=== PATIENT | male | born 1955 | race Caucasian/White ===

== ENCOUNTER 2016-09-28 06:10 | Inpatient (IN) | payer OTHER ==
--- NOTE | 2016-09-28 07:04 | EDPHY ---
H & P Stated Complaint: pt c/o lower back, abd pain and weakness Time Seen by Provider: 09/28/16 07:03 Source: Patient, Family - Personal History Current Tetanus Diphtheria and Acellular Pertussis (TDAP): Yes Tetanus Vaccine Date: WITHIN 10 YRS - Medical/Surgical History Hx Asthma: No Hx Chronic Respiratory Disease: No Hx Diabetes: No Hx Cardiac Disease: No Hx Renal Disease: No Hx Cirrhosis: No Hx Alcoholism: No Hx HIV/AIDS: No Hx Splenectomy or Spleen Trauma: No Other PMH: pmh: HTN, HIGH CHOLEST., brain CA, BPH, SEIZURES, WEST NILE VIRUS- global weakness. PSH:CRANIOTOMY, APPY, ZOLTAN, BOWEL RESECTION, GREEN LIGHT LASER TURP, umbillical hernia repair - Social History Smoking Status: Never smoked Constitutional: Initial Vital Signs Temperature (C) 36.5 C 09/28/16 06:16 Heart Rate 72 09/28/16 06:16 Respiratory Rate 20 09/28/16 06:16 Blood Pressure 107/66 09/28/16 06:16 O2 Sat (%) 94 09/28/16 06:16 O2 Delivery Mode Room Air Allergies/Adverse Reactions: dutasteride [From Avodart] Allergy (Verified 09/28/16 09:37) [id number] Reductase Inhibitor Allergy (Verified 09/28/16 09:37) Home Medications: Medication Instructions Recorded Aspirin [Aspirin 325 mg (OTC)] 325 mg PO DAILY 11/30/12 Cialis 01/18/16 GABAPENTIN 01/18/16 Losartan/Hydrochlorothiazide 01/18/16 Omeprazole 01/18/16 Tricor 09/28/16 Medical Decision Making - Diagnostics Imaging Results: Imaging Impressions Brain MRI 09/28/16 07:19 Impression: 1. Right frontal lobe postsurgical and postradiation changes without evidence of nodular enhancement and therefore no evidence of residual or recurrent neoplasm. 2. No acute infarct, acute hemorrhage, hydrocephalus, midline shift, herniation , or new enhancing lesions. 3. Mild cerebral atrophy and microvascular ischemic gliosis again noted. Findings and recommendations discussed with Emergency Department physician, Jerry Huitron M.D. at 1000 hours, 09/28/2016. Final report concurs with initial preliminary interpretation. Abdomen CT 09/28/16 07:21 Impression: 1. Mild diverticulitis of the descending colon. 2. 6 x 4 mm intrarenal collecting system calculus obstructing the right upper pole infundibulum. No ureteral obstruction. 3. Right nephrolithiasis. 4. Minimal hepatic steatosis. Findings discussed with Emergency Department physician, Jerry Huitron M.D., on September 28, 2016 at 8:37 a.m. Imaging: Discussed imaging studies w/ economic manager Radiologist ED Course/Re-evaluation: CHIEF COMPLAINT: Generalized weakness HISTORY OF PRESENT ILLNESS: This patient is a 61 year old male with history of West Nile Virus (2012) and brain cancer with craniotomy (2006) who presents to the Emergency Department following an episode of acute generalized weakness when he awoke this morning. He has a history of chronic weakness, worse on the left, following prior West Nile infection. His reports that he has seemed "dull" over the past week. Today, he was unable to get up out of bed due to acute exacerbation of this weakness, which he describes as most significant to his torso. He was ultimately able to walk with support to the car. Upon arrival , he reports that his weakness has improved. He complains of a band of lower abdominal pain radiating to his back that first presented last night. He denies nausea, vomiting, or bowel changes. No subjective fever or urinary complaints. He did start taking Tricor last week but denies any additional medication changes or recent infections. reports that he does have a remote history of diverticulitis. REVIEW OF SYSTEMS: A 10 point review of systems was performed and is negative with the exception of the elements mentioned in the history of present illness. PHYSICAL EXAM: HR 72, BP 107/66, O2 Sat 94%, RR 20. Temp noted General Appearance: Alert, well hydrated, appropriate, and non-toxic appearing. Head: Atraumatic without scalp tenderness or obvious injury Eyes: Pupils equal, round, reactive to light and accommodation, EOMI, no trauma , no injection. Ears: Clear bilaterally, no perforation, normal landmarks Nose: Atraumatic, no rhinorrhea, clear. Throat: There is no erythema or exudates, no lesions, normal tonsils, mucus membranes moist. Neck: Supple, 2+ carotid upstroke, nontender, no lymphadenopathy. Respiratory: No retractions, no distress, no wheezes, and no accessory muscle use. Lungs are clear to auscultation bilaterally. Cardiovascular: Regular rate and rhythm, no murmurs, rubs, or gallops. Bilateral carotid, radial, dorsalis pedis, and posterior tibial pulses intact. Good capillary refill all extremities. Gastrointestinal: Abdomen is soft, LLQ tenderness along sigmoid colon, non- distended, no masses, no rebound, no guarding, no peritoneal signs. Musculoskeletal: Normal active ROM of all extremities, atraumatic. Neurological: Alert, appropriate, and interactive. The patient has normal DTRs and non-focal cranial nerves, motor, sensory, and cerebellar exam. Minimal ulnar weakness on left versus the right. 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 No pronator drift. Skin: No rashes, good turgor, no nodules on palpation. Past medical history: Brain cancer (2006), in remission - he has received annual MRIs through 2016. 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 Remote history of diverticulitis. Past surgical history: Craniotomy, appendectomy, cholecystectomy, bowel resection. Family history: Non-contributory Social history: at bedside DIFFERENTIAL DIAGNOSIS: Differential diagnosis for the patient's generalized weakness includes, but is not limited to: sigmoid diverticulitis exacerbating a long-term neurological process, central causes including CVA, TIA, recurrence of brain carcinoma, electrolyte abnormalities and dehydration, atypical causes like migraine syndrome. MEDICAL DECISION MAKING: This 61-year-old male with complex neurological history presents with complaint of truncal weakness most severe this morning when attempting to rise from bed. He has a history of brain carcinoma and craniotomy; he has been in remission for ten years. He was diagnosed in 2012 with West Nile Virus; per , his most severe symptom at that time was global weakness. He also complains of lower abdominal pain and has LLQ tenderness over the sigmoid colon on exam. Will proceed with MRI of the brain given the patient's history, although I am most suspicious of sigmoid diverticulitis worsening his baseline residual weakness. Will proceed with CT of the abdomen in addition. Labs obtained: WBC elevated at 12.00. Chemistries are unremarkable. IV established. 4mg IV morphine administered for pain. 904: CT of the abdomen confirms sigmoid diverticulitis. 1gm IV Invanz administered for treatment. 956: MRI of the brain is unchanged from previous per Dr. Neely. I discussed imaging findings with the patient and his . They are aware of incidental finding of kidney stone and he has been evaluated by a neurologist for this. Given his uncomplicated diverticulitis, I discussed with him the option of discharge home or admission to the hospital given his neurological deficits. He would prefer admission at this time; I agree that this is the appropriate course given his truncal ataxia. 1023: Consultation with Charley Shahid. Dr. Braxton, hospitalist, accepts admission. 1040: Consultation with Dr.Todd Munoz, ID specialist. He is aware of the case and will visit him following admission. - Data Points Laboratory Results: Laboratory Results 09/28/16 07:06 09/28/16 06:40 09/28/16 09/28/16 09/28/16 08:10 07:21 07:06 WBC 12.00 10^3/uL H 10^3/uL (3.80-9.50) RBC 4.98 10^6/uL 10^6/uL (4.40-6.38) Hgb 14.9 g/dL g/dL (13.7-17.5) Hct 42.8 % % (40.0-51.0) MCV 85.9 fL fL (81.5-99.8) MCH 29.9 pg pg (27.9-34.1) MCHC 34.8 g/dL g/dL (32.4-36.7) RDW 13.1 % % (11.5-15.2) Plt Count 191 10^3/uL 10^3/uL (150-400) MPV 9.8 fL fL (8.7-11.7) Neut % (Auto) 77.0 % H % (39.3-74.2) Lymph % (Auto) 11.3 % L % (15.0-45.0) Chaves % (Auto) 10.0 % % (4.5-13.0) Eos % (Auto) 1.2 % % (0.6-7.6) Baso % (Auto) 0.2 % L % (0.3-1.7) Nucleat RBC Rel Count 0.0 % % (0.0-0.2) Absolute Neuts (auto) 9.24 10^3/uL H 10^3/uL (1.70-6.50) Absolute Lymphs (auto) 1.36 10^3/uL 10^3/uL (1.00-3.00) Absolute Monos (auto) 1.20 10^3/uL H 10^3/uL (0.30-0.80) Absolute Eos (auto) 0.14 10^3/uL 10^3/uL (0.03-0.40) Absolute Basos (auto) 0.02 10^3/uL 10^3/uL (0.02-0.10) Absolute Nucleated RBC 0.00 10^3/uL 10^3/uL (0-0.01) Immature Gran % 0.3 % % (0.0-1.1) Immature Gran # 0.04 10^3/uL 10^3/uL (0.00-0.10) Sodium Potassium Chloride Carbon Dioxide Anion Gap BUN Creatinine Estimated GFR Glucose Calcium Total Bilirubin 1.1 mg/dL mg/dL (0.1-1.4) Conjugated Bilirubin 0.4 mg/dL mg/dL (0.0-0.5) Unconjugated Bilirubin 0.7 mg/dL mg/dL (0.0-1.1) AST 32 IU/L IU/L (17-59) ALT 48 IU/L IU/L (21-72) Alkaline Phosphatase 58 IU/L IU/L (38-126) Total Protein 7.1 g/dL g/dL (6.3-8.2) Albumin 4.3 g/dL g/dL (3.5-5.0) Lipase 105.0 IU/L IU/L (23-300) Urine Color YELLOW Urine Appearance CLEAR Urine pH 6.0 (5.0-7.5) Ur Specific [employer] > 1.035 H (1.002-1.030) Urine Protein NEGATIVE (NEGATIVE) Urine Ketones NEGATIVE (NEGATIVE) Urine Blood NEGATIVE (NEGATIVE) Urine Nitrate NEGATIVE (NEGATIVE) Urine Bilirubin NEGATIVE (NEGATIVE) Urine Urobilinogen NEGATIVE EU EU (0.2-1.0) Ur Leukocyte Esterase NEGATIVE (NEGATIVE) Urine Glucose NEGATIVE (NEGATIVE) 09/28/16 09/28/16 06:40 06:40 WBC REJ RBC TNP Hgb TNP Hct TNP MCV TNP MCH TNP MCHC TNP RDW TNP Plt Count TNP MPV TNP Neut % (Auto) TNP Lymph % (Auto) TNP Chaves % (Auto) TNP Eos % (Auto) TNP Baso % (Auto) TNP Nucleat RBC Rel Count TNP Absolute Neuts (auto) TNP Absolute Lymphs (auto) TNP Absolute Monos (auto) TNP Absolute Eos (auto) TNP Absolute Basos (auto) TNP Absolute Nucleated RBC TNP Immature Gran % TNP Immature Gran # TNP Sodium 138 mEq/L mEq/L (134-144) Potassium 4.5 mEq/L mEq/L (3.5-5.2) Chloride 107 mEq/L mEq/L (97-110) Carbon Dioxide 20 mEq/l L mEq/l (22-31) Anion Gap 11 mEq/L mEq/L (8-16) BUN 22 mg/dL mg/dL (7-23) Creatinine 1.0 mg/dL mg/dL (0.7-1.3) Estimated GFR > 60 Glucose 113 mg/dL H mg/dL (70-100) Calcium 9.7 mg/dL mg/dL (8.5-10.4) Total Bilirubin Conjugated Bilirubin Unconjugated Bilirubin AST ALT Alkaline Phosphatase Total Protein Albumin Lipase Urine Color Urine Appearance Urine pH Ur Specific [employer] Urine Protein Urine Ketones Urine Blood Urine Nitrate Urine Bilirubin Urine Urobilinogen Ur Leukocyte Esterase Urine Glucose Medications Given: Discontinued Medications Ertapenem 1 gm/ Sodium (Chloride) 100 mls @ 200 mls/hr IV EDNOW ONE PRN Reason: Protocol Stop: 09/28/16 09:40 Last Admin: 09/28/16 10:00 Dose: 100 mls Morphine Sulfate (Morphine) 4 mg IVP EDNOW ONE Stop: 09/28/16 08:19 Last Admin: 09/28/16 08:31 Dose: 4 mg Morphine Sulfate (Morphine) 4 mg IVP EDNOW ONE Stop: 09/28/16 10:02 Last Admin: 09/28/16 10:13 Dose: 4 mg Departure - Departure Disposition: [facility] Inpatient Acute Clinical Impression: History of West Nile virus (WNV) infection, Truncal ataxia Diverticulitis large intestine Qualifiers: Diverticulitis bleeding: without bleeding Diverticulitis complication: without perforation or abscess Qualified Code(s): K57.32 - Diverticulitis of large intestine without perforation or abscess without bleeding Condition: Fair Referrals: Errol Gerard MD [Primary Care Provider] - As per Instructions Report Scribed for: Jerry Huitron Report Scribed by: Daija Sandoval Date of Report: 09/28/16 Time of Report: 07:24
[2016-09-28 07:12] LABS: % IMMATURE GRANULYOCYTES 0.3 % (0.0-1.1); ABSOLUTE IMMATURE GRANULOCYTES 0.04 10^3/uL (0.00-0.10); ADD DIFF? NO; ADD MORPH? NO; ADD SCAN? NO; ATYPICAL LYMPHOCYTE FLAG 10 (0-99); FRAGMENT RBC FLAG 0 (0-99); HEMATOCRIT 42.8 % (40.0-51.0); HEMOGLOBIN 14.9 g/dL (13.7-17.5); LEFT SHIFT FLG 0 (0-99); LIPEMIA HEMOLYSIS FLAG 90 (0-99); MEAN CELL HEMOGLOBIN 29.9 pg (27.9-34.1); MEAN CELL HEMOGLOBIN CONCENTR. 34.8 g/dL (32.4-36.7); MEAN CELL VOLUME 85.9 fL (81.5-99.8); MEAN PLATELET VOLUME 9.8 fL (8.7-11.7); PLATELET CLUMPS FLAG 0 (0-99); PLATELET COUNT 191 10^3/uL (150-400); RED BLOOD CELL COUNT 4.98 10^6/uL (4.40-6.38); RED CELL DISTRIBUTION WIDTH 13.1 % (11.5-15.2)
[2016-09-28 07:23] LABS: ANION GAP 11 mEq/L (8-16); CALCIUM 9.7 mg/dL (8.5-10.4); CARBON DIOXIDE 20 mEq/l (22-31); CHLORIDE 107 mEq/L (97-110); GLOMERULAR FILTRATION RATE > 60; GLUCOSE 113 mg/dL (70-100); POTASSIUM 4.5 mEq/L (3.5-5.2); SODIUM 138 mEq/L (134-144)
[2016-09-28] MEDS ORDERED: IOPAMIDOL (ISOVUE-300) 100 ML BTL ONE (07:29)
[2016-09-28 07:37] LABS: ALBUMIN 4.3 g/dL (3.5-5.0); BILIRUBIN,TOTAL 1.1 mg/dL (0.1-1.4); BILIRUBIN-CONJUGATED 0.4 mg/dL (0.0-0.5); BILIRUBIN-UNCONJUGATED 0.7 mg/dL (0.0-1.1); TOTAL PROTEIN 7.1 g/dL (6.3-8.2)
[2016-09-28 08:44] LABS: COLOR YELLOW; LEUKOCYTE ESTERASE,URINE NEGATIVE (NEGATIVE); NITRITE,URINE NEGATIVE (NEGATIVE)
[2016-09-28] MEDS ORDERED: GADOBUTROL 10 ML VIAL IVP ONE (08:56)
[2016-09-28] MEDS ORDERED: ERTAPENEM 1 GM in NS 100 ML IV ONE (09:11)
[2016-09-28] MEDS ORDERED: ONDANSETRON DISINTEGRATING 4 MG TAB PO PRN (12:19)
[2016-09-28] MEDS ORDERED: ACETAMINOPHEN 325 MG TAB PO PRN (12:19)
[2016-09-28] MEDS ORDERED: HYDROmorphONE/DILAUDID 1 MG/ML SYR IVP PRN (12:19)
[2016-09-28] MEDS ORDERED: ONDANSETRON 4 MG/2 ML VIAL IVP PRN (12:19)
[2016-09-28] MEDS ORDERED: NS 1,000 ML IV SCH (12:30)
--- NOTE | 2016-09-28 13:44 | GHP ---
[f rep st] HISTORY AND PHYSICAL DATE OF ADMISSION: 09/28/2016 HISTORY OF PRESENT ILLNESS: The patient is a 61-year-old gentleman with a complex medical history t hat includes West Nile with residual left-sided weakness as well as history of oligodendroglioma, st atus post resection, nephrolithiasis, and diverticulitis with history of colon resection, who presen ts today with increasing weakness and inability to get out of bed. He has had some feeling hot but no demonstrated fevers or chills. He has some low-grade abdominal pain that really started today. His notes that over the last couple of days, even a week, he has been eating less and less inte ractive. He has not had any fall. He does note increased weakness. He has not had diarrhea. His last bowel movement was yesterday, which was normal. His notes actually that he complained a b it of some constipation. REVIEW OF SYSTEMS: Complete 10-point review of systems conducted, negative except as noted in the H PI. PAST MEDICAL HISTORY: 1. BPH. 2. 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 3. History of oligodendroglioma, diagnosed in 2006, status post chemotherapy and resection. He has some cognitive issues. 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 4. Segmental hydronephrosis secondary to a kidney stone in the infundibulum of the upper pole the r ight kidney. 5. Diverticulitis with colon resection. 6. Hypertension. 7. GERD. 8. Inguinal hernia repair. 9. Appendectomy. ALLERGIES: Dutasteride, which caused a breast mass. Statins, which cause weakness. HOME MEDICATIONS: Aspirin, Cialis, gabapentin, losartan/hydrochlorothiazide, omeprazole, and TriCor . SOCIAL HISTORY: Rare alcohol. No tobacco. Lives in [place]. FAMILY HISTORY: No cancer. PHYSICAL EXAMINATION: PRESENTING VITALS: Temp 36.5, blood pressure 107/66, pulse 72, breathing 20 times a minute, 94% on room air. GENERAL: No acute distress. HEENT: Sclerae anicteric. Orophary nx clear. Mucous membranes moist. NECK: Supple, without lymphadenopathy or JVD. LUNGS: Clear to auscultation bilaterally. HEART: S1, S2 without murmurs. ABDOMEN: Soft. There are hypoactive b ut present bowel sounds. It is tender in the lower quadrants without rebound or guarding. LOWER EX TREMITIES: Without edema. NEUROLOGIC: I watch the patient walk, and he has a bit of a shuffling g ait that, per his , is worse than baseline. He has also some notable left-sided weakness. LABS: White count 12, greater than baseline. Hematocrit 43. Platelets are 191,000. Sodium 138, p otassium 4.5, chloride 107, bicarb 20, BUN 11, creatinine 1.0, glucose 113. UA is concentrated but negative for infection. Brain MRI shows right frontal lobe postsurgical and postradiation changes without evidence of nodula r enhancement. No acute infarct, acute hemorrhage, hydrocephalus, midline shift. Mild cerebral atr ophy and microvascular ischemic gliosis are noted. Abdominal CT, images reviewed and interpreted by me, shows mild diverticulitis, a 6 x 4 mm intrarena l calculus in the right upper lobe of the infundibulum. This is not new. Right nephrolithiasis. M inimal hepatic steatosis. I have discussed the case with Dr. Jerry Huitron. ASSESSMENT AND PLAN: 61-year-old gentleman with complex medical history presents with generalized w eakness, abdominal pain, found to have diverticulitis. 1. Diverticulitis. This is mild. Antibiotic management alone will likely be adequate. He receive d ertapenem. I will continue this. Does not need a surgical consultation at this time. 2. Increasing weakness. I suspect this is intercurrent illness in a patient with significant under lying neurologic illness. He had a brain MRI that is unremarkable. We will follow. PT and OT to s ee him. 3. Constipation. I will hold off on laxatives for now, given his active diverticulitis. I would s tart him in a couple of days. 4. Prophylaxis. Pharmacologic prophylaxis indicated. 5. Benign prostatic hypertrophy. Continue his medication. He has had a TURP in the past. 6. Pain. We will add IV Dilaudid p.r.n. 7. Disposition: Inpatient status. /[id number]/MODL
[2016-09-28] MEDS ORDERED: oxyCODONE IR 5 MG TAB PO PRN (17:50)
--- NOTE | 2016-09-28 20:35 | GCON ---
[f rep st] CONSULTATION INFECTIOUS DISEASES REFERRING PHYSICIAN: Jerry Huitron MD REASON FOR REFERRAL: Diverticulitis with presentation of truncal weakness. HISTORY OF PRESENT ILLNESS: The patient is a 61-year-old male with an interesting past medical hist ory of severe West Nile virus infection in 2012. The patient completely recovered from that episode , although he was quite neurologically debilitated at its jomar. The patient relates that he had an upper respiratory infection approximately 1 month ago. He recovered from this after a couple of we eks, but began experiencing increasing weakness and an inability to get out of bed this morning due to what was characterized by he and his as truncal weakness. He did not have any clear fevers or chills. He did note on admission some low-grade abdominal pain starting today. The patient note s normal bowel movements. PAST MEDICAL HISTORY: 1. Aseptic meningitis secondary to West Nile virus, with residual left-sided weakness. 2. History of oligodendroglioma in 2006, status post resection and chemotherapy. 3. Benign prostatic hypertrophy. 4. Nephrolithiasis. 5. History of diverticulitis with colon resection. 6. Hypertension. 7. Gastroesophageal reflux disease. PAST SURGICAL HISTORY: 1. Status post colon resection. 2. Status post craniotomy with tumor excision. 3. Status post inguinal hernia repair. 4. Status post appendectomy. ANTIBIOTICS: None currently. ALLERGIES: The patient is allergic to dutasteride and statins. SOCIAL HISTORY: Only occasional alcohol use. No tobacco use. No drug use. The patient is . Supportive family. FAMILY HISTORY: Reviewed, but noncontributory. REVIEW OF SYSTEMS: Other than that detailed above in the History of Present Illness, comprehensive 10-system review is negative. PHYSICAL EXAMINATION: VITAL SIGNS: Temperature maximum is 37.1, temperature current is 37.1, heart rate is 60, respiratory rate is 18, blood pressure is 126/75. GENERAL: The patient is a well-form ed, well-nourished, older male, in no acute distress. He is not toxic in appearance. He is alert a nd oriented x3. He is in a pleasant demeanor. HEENT: Normocephalic for age. Atraumatic. No scle ral icterus. No oral lesion or drainage from the nares. Eyes, lids and conjunctivae within normal limits. Pupils are equal and round bilaterally. NECK: Supple. No meningismus. LUNGS: Clear to auscultation bilaterally with good effort. HEART: Regular rate and rhythm. No murmur, rub, or gal lop noted. No significant peripheral edema. ABDOMEN: Soft. Tender in the lower quadrants. No ma ss or rebound. SKIN: Warm and dry to the touch. No rash or lesion noted. NEURO: Cranial nerves 2-12 seem to be intact. The patient has significant left-sided weakness versus right side. He is a lert and oriented x3. LABORATORY DATA: The patient has a CBC dated 09/28/2016, shows a white blood cell count of 12.0, he moglobin of 14.9, hematocrit 42.8, platelet count of 191, differential is left-shifted with 77% segm ented neutrophils. Serum chemistries on 09/28/2016 show sodium 138, potassium 4.5, chloride 107, bi carbonate of 20, BUN of 22, creatinine 1.0, AST is 32, ALT is 48. Urinalysis on 09/28/2016 is withi n normal limits. MICROBIOLOGIC DATA: The patient has no sample sent currently. RADIOLOGIC DATA: The patient has an abdominal CT dated 09/28/2016, which shows mild diverticulitis of the descending colon, and a 6 x 4 mm collection system calculus which is obstructing the right up per pole, but no obstruction of the ureter. ASSESSMENT: Mild diverticulitis. I suspect this is a second inflammatory stimulator for this patie nt in rapid succession with his preceding respiratory infection, which likely led to a very brisk po lyclonal immune response which caused some increased weakness reminiscent of his chronic inflammatio n from his West Nile virus years ago. I would cover him for gastrointestinal pathogens with ertapen em monotherapy, and follow his symptoms going forward. I would expect reasonably rapid resolution o f the neurologic complaints coinciding with resolution of his abdominal pain. PLAN: 1. Continue ertapenem. 2. Follow clinical course, vital signs and laboratory data. /[id number]/MODL
[2016-09-28] MEDS ORDERED: [UNRECOGNIZED DRUG - OTHER] PO SCH (21:00)
[2016-09-28] MEDS ORDERED: MELATONIN 3 MG TAB PO SCH (21:00)
[2016-09-28] MEDS ORDERED: GABAPENTIN 300 MG CAP PO SCH (21:00)
[2016-09-28 22:25] VITALS: O2SAT 92
[2016-09-29 05:46] LABS: % IMMATURE GRANULYOCYTES 0.3 % (0.0-1.1); ABSOLUTE IMMATURE GRANULOCYTES 0.02 10^3/uL (0.00-0.10); ADD DIFF? NO; ADD MORPH? NO; ADD SCAN? NO; ATYPICAL LYMPHOCYTE FLAG 0 (0-99); FRAGMENT RBC FLAG 0 (0-99); HEMATOCRIT 39.2 % (40.0-51.0); HEMOGLOBIN 13.7 g/dL (13.7-17.5); LEFT SHIFT FLG 0 (0-99); LIPEMIA HEMOLYSIS FLAG 90 (0-99); MEAN CELL HEMOGLOBIN 30.2 pg (27.9-34.1); MEAN CELL HEMOGLOBIN CONCENTR. 34.9 g/dL (32.4-36.7); MEAN CELL VOLUME 86.3 fL (81.5-99.8); PLATELET CLUMPS FLAG 0 (0-99); PLATELET COUNT 187 10^3/uL (150-400); RED BLOOD CELL COUNT 4.54 10^6/uL (4.40-6.38); RED CELL DISTRIBUTION WIDTH 12.9 % (11.5-15.2)
[2016-09-29 06:19] LABS: ANION GAP 10 mEq/L (8-16); CALCIUM 9.2 mg/dL (8.5-10.4); CARBON DIOXIDE 21 mEq/l (22-31); CHLORIDE 108 mEq/L (97-110); GLOMERULAR FILTRATION RATE > 60; GLUCOSE 95 mg/dL (70-100); POTASSIUM 4.2 mEq/L (3.5-5.2); SODIUM 139 mEq/L (134-144)
[2016-09-29 07:48] VITALS: BP 140/79; PULSE 56; RESP 18; TEMP 97.9
[2016-09-29] MEDS ORDERED: ERTAPENEM 1 GM in NS 100 ML IV SCH (09:00)
[2016-09-29] MEDS ORDERED: NON-FORMULARY NEW DRUG (Valsartan/Hydrochlorothiazide [Valsartan-Hctz 160-12.5 Mg Tab] 1 E PO SCH (09:00)
[2016-09-29] MEDS ORDERED: FENOFIBRATE 145 MG TAB PO SCH (09:00)
[2016-09-29] MEDS ORDERED: Tadalafil [Cialis] 5 MG PO SCH (09:00)
[2016-09-29] MEDS ORDERED: HYDROCHLOROTHIAZIDE 25 MG TAB PO SCH (09:00)
[2016-09-29] MEDS ORDERED: ENOXAPARIN 40 MG/0.4 ML SYR SC SCH (09:00)
[2016-09-29] MEDS ORDERED: PANTOPRAZOLE SODIUM 40 MG TAB PO SCH (09:00)
[2016-09-29] MEDS ORDERED: Herbals/Supplements -Info Only PO SCH (09:00)
[2016-09-29] MEDS ORDERED: MULTIVITAMINS 1 EACH TAB PO SCH (09:00)
[2016-09-29] MEDS ORDERED: ASPIRIN 325 MG TAB PO SCH (09:00)
[2016-09-29] MEDS ORDERED: VALSARTAN 160 MG TAB PO SCH (09:00)
--- NOTE | 2016-09-29 12:24 | PCMIDPN ---
Assessment/Plan: Assessment/Plan: 1. Mild Diverticulitis: - Currently on IV invanz therapy. IMproving. -wbc improved. no fevers. -still with lower quad pain and distention. hasn't move Bowels in few days -weakness has resolved. l-Conitnue with invanz. Couled consider changing to oral cipro + flagyl in AM to complete therapy in the OP if continues to improve Meds invanz Subjective: Afebrile. starting to feel better. stilll with lower quadrant pain. hasn't moved bowels in a few days. denies sob. truncal weakness has nearly resolved. no other complaints. Objective: Vital Signs Temp Pulse Resp BP Pulse Ox 36.6 C 56 L 18 140/79 H 92 09/29/16 07:47 09/29/16 07:47 09/29/16 07:47 09/29/16 10:30 09/29/16 07:47 Laboratory Results 09/29/16 05:06 09/29/16 05:06 09/28/16 09/29/16 09/30/16 05:59 05:59 05:59 Intake Total 350 Balance 350 - Physical Exam General Appearance: alert, no apparent distress Respiratory: lungs clear Cardiac/Chest: regular rate, rhythm Extremities: No swelling Abdomen: normal bowel sounds, soft, distended (mild), other (tenderness in mainly left lower quadrant with occasional pain radiating to right lower quadrant..no guarding) Skin: No erythema ICD10 Worksheet Patient Problems: Problems Problem Status Onset Diverticulitis large intestine Acute History of West Nile virus (WNV) infection Acute Truncal ataxia Acute
--- NOTE | 2016-09-29 14:07 | GDS ---
[f rep st] DISCHARGE SUMMARY DISCHARGE DIAGNOSES: 1. Diverticulitis, mild. 2. Resolved weakness. 3. Benign prostatic hypertrophy. 4. Constipation. HOSPITAL COURSE: Diverticulitis: The patient presented to the hospital with left lower quadrant ab dominal pain and weakness. The weakness has since resolved. He is currently tolerating a regular d iet. He has been afebrile. He is no longer needing any IV pain medications. A CT done on admissio n showed a mild diverticulitis of the descending colon. On the day of discharge, the patient states he feels well and would like to leave the hospital, which I think is reasonable. We will plan on a 10-day course of Cipro and Flagyl. He was recommended to follow up with his primary care provider in the next week to further discuss diverticulitis and arrange outpatient colonoscopy, which he is d ue for. PHYSICAL EXAMINATION: VITAL SIGNS: On day of discharge, blood pressure 140/79, pulse 56, respirato ry rate 18, O2 saturation 92% on room air. ABDOMEN: Soft, mildly tender in left lower quadrant but no guarding or rebound tenderness. Normoactive bowel sounds. PERTINENT LABS AND STUDIES: During this hospital stay, CT of the abdomen done 09/28/2016, refer to report. A brain MRI done 09/28/2016, refer to report. DISCHARGE MEDICATIONS: Please refer to discharge medication reconciliation in [facility] for details. DISCHARGE INSTRUCTIONS: The patient will be discharged from the hospital where, once again, he was instructed to follow up with his primary care providers. See above for further details. He should seek medical attention if he is unable to tolerate oral fluids, solids, or his medications. He cristy ld also be seen if he develops any worsening abdominal pain or fevers. /[id number]/MODL
== END 2016-09-29 15:50 | disposition home or self-care (01) | DRG 392 ==
LOC: OBSVTOIN 12:19 → F3E 12:50
PROVIDERS: ADMIT Internal Medicine; ATTEND Internal Medicine
DX: K57.32 Diverticulitis of large intestine without perforation or abscess without bleeding (principal); K59.00 Constipation, unspecified; N20.0 Calculus of kidney; K21.9 Gastro-esophageal reflux disease without esophagitis; N40.0 Benign prostatic hyperplasia without lower urinary tract symptoms; E78.00 Pure hypercholesterolemia, unspecified; I10 Essential (primary) hypertension; Z85.841 Personal history of malignant neoplasm of brain; Z86.19 Personal history of other infectious and parasitic diseases
CPT/HCPCS: 96365; 97161-GP; 97165-GO; A9585; G8978-GP-CI; G8979-GP-CI; G8980-GP-CI; G8987-GO-CI; G8988-GO-CI; G8989-GO-CI; J1170; J1335; J1650; Q9967

== ENCOUNTER 2017-02-02 20:43 | Inpatient (IN) | payer OTHER ==
[2017-02-02] MEDS ORDERED: LET GEL TOPICAL 1 EA SYR TP ONE (21:07)
[2017-02-02] MEDS ORDERED: fentaNYL 100 MCG/2 ML INJ IVP ONE (21:08)
--- NOTE | 2017-02-02 21:12 | EDPHY ---
H & P Time Seen by Provider: 02/02/17 20:50 HPI/ROS: CHIEF COMPLAINT: Neck pain, confusion, falls HISTORY OF PRESENT ILLNESS: The patient is a 61 y/o male with a complex medical history who arrives with his complaining of confusion and subsequent falls this evening. 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 He is also status post craniotomy for resection of oligodendroglioma in 2006. He was admitted on 09/28/16 for diverticulitis, which exacerbated his baseline neurologic symptoms. 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 He worked today and then drove his to the airport. He dropped her off at security around 17:00 , about 4 hours ago, and then planned to return home. His was waiting at her gate to depart when she noticed she had multiple missed calls on her phone from him. She eventually got ahold of him and he seemed very confused and couldn 't find the car. She then lost contact with him and found him 30 minutes later with the help of security. He was lying in the parking lot of the airport. He had apparently fallen multiple times and bystanders thought he was drunk. She declined transport from medics on scene and drove him to the ED here. He has been complaining of head and neck pain and nausea. His reports that his left arm contractures and cognitive ability is worse than normal. The patient denies vision changes. He denies headache. When asked to localize his neck pain he points to the right occiput. No known recent illness. REVIEW OF SYSTEMS: A 10 point review of systems was performed and is negative with the exception of the elements mentioned in the history of present illness. 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 at bedside. Prior medical records including admission 06/12/17 for diverticulitis and worsening neurologic symptoms. General Appearance: Alert, no acute distress. Blood pressure 143/79, all vital signs otherwise normal. Head: Right occipital tenderness. Parieto-occipital abrasion. Eyes: Pupils equal and round, no conjunctival injection, no discharge. Gaze preference to the right, able to cross midline but requires urging to do so. ENT, Mouth: Mucous membranes are moist, no oropharyngeal erythema or edema. Neck: Nontender to palpation over the cervical spine in the midline. Respiratory: Lungs are clear to auscultation; no wheezes, rales, or rhonchi. Cardiovascular: Regular rate and rhythm; no murmur, rub, or gallop. Gastrointestinal: Abdomen is soft and non tender, no masses or organomegaly, bowel sounds normal. Skin: Warm and dry, no rashes, normal color. Back: Nontender to palpation over the thoracolumbar spine. Superficial abrasion midback. Extremities: No lower extremity edema, no calf tenderness or swelling. Scattered abrasions to both legs. Abrasions on both knees and elbows. Neurological: Alert and oriented x4. Able to follow commands. Left arm contracture at the elbow with rigidity, able to elevate left leg off the bed but very stiff at the knee, normal strength right arm and hand, normal strength right leg. APRIL. Tongue midline. Facial expressions symmetric. Sensation intact over face. Psychiatric: Normal affect. - Personal History Tetanus Vaccine Date: WITHIN 10 YRS - Medical/Surgical History Hx Asthma: No Hx Chronic Respiratory Disease: No Hx Diabetes: No Hx Cardiac Disease: No Hx Renal Disease: No Hx Cirrhosis: No Hx Alcoholism: No Hx HIV/AIDS: No Hx Splenectomy or Spleen Trauma: No Other PMH: pmh: HTN, HIGH CHOLEST., brain CA, BPH, SEIZURES, WEST NILE VIRUS- global weakness. PSH:CRANIOTOMY, APPY, ZOLTAN, BOWEL RESECTION, GREEN LIGHT LASER TURP, umbillical hernia repair - Social History Smoking Status: Never smoked Constitutional: Initial Vital Signs Temperature (C) 36.5 C 02/02/17 20:56 Heart Rate 66 02/02/17 20:56 Respiratory Rate 16 02/02/17 20:56 Blood Pressure 143/79 H 02/02/17 20:56 O2 Sat (%) 95 02/02/17 20:56 O2 Delivery Mode Nasal Cannula O2 (L/minute) 2 Allergies/Adverse Reactions: dutasteride [From Avodart] Allergy (Verified 02/02/17 20:56) Nyxvobs-Tyh-Jho Reductase Inhibitor Allergy (Verified 02/02/17 20:56) Home Medications: Medication Instructions Recorded Gabapentin [Neurontin 300 MG (*)] 600 mg PO HS 01/18/16 Omeprazole [Prilosec 20 mg] 40 mg PO DAILY 01/18/16 Valsartan/Hydrochlorothiazide 1 each PO DAILY 01/18/16 [Valsartan-Hctz 160-12.5 mg Tab] Fenofibrate [Tricor 145 mg (*)] 0.5 each PO DAILY 09/28/16 Herbals/Supplements -Info Only 1 ea PO DAILY 09/28/16 Multivitamins [Multivitamin (*)] 1 each PO DAILY 09/28/16 Ondansetron Odt [Zofran Odt 4 mg 4 mg PO Q4HRS PRN #5 tab 09/29/16 (*)] Acetaminophen/ASA/Caffeine 2 each PO DAILY PRN 02/03/17 [Excedrin Tablet (*)] Mirabegron [Myrbetriq] 50 mg PO DAILY 02/03/17 Medical Decision Making - Diagnostics Imaging: Discussed imaging studies w/ rn call center Radiologist, I viewed and interpreted images myself ED Course/Re-evaluation: IV established. Labs drawn. Plan for imaging and pain management. 50mcg IV Fentanyl and topical lidocaine ordered. WBC 15.78. Head CT: Acute subdural, subarachnoid, intraparenchymal hemorrhage along the falx and frontally. This appears to be traumatic. Neck CT: No acute findings. He was serially examined during his stay in the emergency department. Neurologic exam at baseline is not normal, so it is somewhat difficult to assess for acute findings. However, his mental status actually seemed to clear while he was in the department. At no time did he have a deterioration in his neurologic status or his mentation. He is being admitted to the trauma service with the assumption that this is a traumatic intracranial hemorrhage. I am a bit concerned about what caused him to fall. 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 His provided instructions with the location of the car in the airport parking lot but, for some reason, he was unable to locate the car and subsequently fell in the parking lot. He does not report any symptoms that make me think he has an infection, it does not sound as if he fainted although the details are somewhat vague, he was not experiencing chest pain and has not had chest pain since this happened, he has not been aware of a cardiac arrhythmia. It is certainly possible that this was a mechanical fall after walking for some distance in the airport. Differential Diagnosis: I considered a differential diagnosis of traumatic injury that includes but is not limited to intracranial hemorrhage, skull fracture, concussion, vertebral injury, spinal cord injury, intrathoracic injury, intra-abdominal injury, long bone fractures, contusions, abrasions, and lacerations. Critical Care Time: I spent a total of 40 minutes of critical care time in obtaining history, performing a physical exam, bedside monitoring of interventions, collecting and interpreting tests and discussion with consultants but not including time spent performing procedures. He was at risk of neurologic deterioration. - Data Points Laboratory Results: Laboratory Results 02/02/17 21:00 02/02/17 21:00 Medications Given: Acetaminophen (Tylenol) 650 mg PO Q4 PRN PRN Reason: Pain, Mild/Fever, Can Take PO Stop: 08/04/17 13:56 Last Admin: 02/07/17 08:58 Dose: 650 mg Hydrocodone Bitart/Acetaminophen ([place]o 5/325) 1 - 2 tab PO Q6HRS PRN PRN Reason: Pain, Moderate Able to Take PO Stop: 02/12/17 23:22 Last Admin: 02/04/17 09:47 Dose: 1 tab Bacitracin (Bacitracin Ointment) 1 shani TP DAILY [facility] PRN Reason: Protocol Stop: 03/05/17 15:59 Last Admin: 02/07/17 09:04 Dose: 1 shani Fenofibrate (Tricor) 72.5 mg PO DAILY [facility] Stop: 08/03/17 08:59 Last Admin: 02/07/17 08:59 Dose: 72.5 mg Gabapentin (Neurontin) 600 mg PO HS [facility] Stop: 08/02/17 20:59 Last Admin: 02/06/17 20:16 Dose: 600 mg Hydrochlorothiazide (Microzide) 12.5 mg PO DAILY [facility] Stop: 08/03/17 08:59 Last Admin: 02/07/17 08:59 Dose: 12.5 mg Miscellaneous Medication (Mirabegron [Myrbetriq]) 50 mg PO DAILY [facility] Stop: 08/03/17 09:29 Last Admin: 02/07/17 09:04 Dose: 1 tab Miscellaneous Medication (Non-Formulary) 400 ea PO DAILY [facility] Stop: 08/03/17 09:29 Last Admin: 02/07/17 09:04 Dose: 1 cap Pantoprazole Sodium (Protonix) 40 mg PO DAILY [facility] Stop: 08/03/17 08:59 Last Admin: 02/07/17 08:59 Dose: 40 mg Tramadol HCl (Ultram) 50 mg PO Q6HRS PRN PRN Reason: Pain, Moderate Able to Take PO Stop: 08/03/17 12:30 Last Admin: 02/07/17 05:34 Dose: 50 mg Valsartan (Diovan) 160 mg PO DAILY [facility] Stop: 08/03/17 08:59 Last Admin: 02/07/17 08:59 Dose: 160 mg Discontinued Medications Ciprofloxacin (Cipro) 500 mg PO BID [facility] PRN Reason: Protocol Stop: 03/05/17 08:59 Last Admin: 02/03/17 16:14 Dose: Not Given Fentanyl (Sublimaze) 50 mcg IVP EDNOW ONE Stop: 02/02/17 21:09 Last Admin: 02/02/17 21:15 Dose: 50 mcg Gabapentin (Neurontin) 300 mg PO DAILY [facility] Stop: 08/01/17 20:59 Last Admin: 02/03/17 10:42 Dose: Not Given HCTZ/Losartan Potassium (Hyzaar 50/12.5) 1 tab PO DAILY [facility] Stop: 08/02/17 08:59 Last Admin: 02/03/17 10:42 Dose: Not Given Hydromorphone HCl (Dilaudid) 0.2 mg IVP EDNOW ONE Stop: 02/02/17 23:25 Last Admin: 02/03/17 00:08 Dose: 0.2 mg Levetiracetam 500 mg/ Sodium (Chloride) 105 mls @ 420 mls/hr IV ONCE ONE Stop: 02/02/17 23:05 Last Admin: 02/03/17 01:26 Dose: 105 mls Lactated Ringer's (Lr) 1,000 mls @ 100 mls/hr IV CONT [facility] Stop: 08/01/17 23:29 Last Admin: 02/03/17 01:28 Dose: 1,000 mls Sodium Chloride (Ns) 1,000 mls @ 100 mls/hr IV CONT [facility] Stop: 08/02/17 15:44 Last Admin: 02/03/17 16:07 Dose: 1,000 mls Ibuprofen (Motrin) 600 mg PO Q8HRS [facility] Stop: 08/02/17 05:59 Last Admin: 02/03/17 06:09 Dose: Not Given Levetiracetam (Keppra) 500 mg PO BID [facility] Stop: 08/02/17 08:59 Last Admin: 02/03/17 10:42 Dose: Not Given Metronidazole (Flagyl) 500 mg PO TID [facility] PRN Reason: Protocol Stop: 03/05/17 08:59 Last Admin: 02/03/17 16:14 Dose: Not Given Miscellaneous Medication (Mirabegron [Myrbetriq]) 50 mg PO DAILY [facility] Stop: 08/03/17 08:59 Last Admin: 02/04/17 11:47 Dose: Not Given Morphine Sulfate (Morphine) 1 - 2 mg IVP Q1HR PRN PRN Reason: Pain, Severe Unable to Take PO Stop: 02/12/17 23:22 Last Admin: 02/04/17 20:51 Dose: 2 mg Ondansetron HCl (Zofran) 4 mg IVP EDNOW ONE Stop: 02/02/17 21:58 Last Admin: 02/02/17 22:32 Dose: 4 mg Tetracaine/Epinephrine/Lidocaine (Let Gel Topical) 1 ea TP EDNOW ONE Stop: 02/02/17 21:08 Last Admin: 02/02/17 21:17 Dose: 1 ea Departure - Departure Disposition: [facility] Inpatient Acute Clinical Impression: Intracranial hemorrhage, Abrasions of multiple sites Condition: Fair Report Scribed for: Taylor Perez Report Scribed by: Sabra Brasher Date of Report: 02/02/17 Time of Report: 21:12 Physician Review and Approval Statement: 02/02/17 22:51 Portions of this note were transcribed by the biomedical engineering technologist. I, Dr. Taylor Perez, personally performed the history, physical exam, and medical decision- making; and confirmed the accuracy of the information in the transcribed note.
[2017-02-02 21:18] LABS: % IMMATURE GRANULYOCYTES 0.8 % (0.0-1.1); ABSOLUTE IMMATURE GRANULOCYTES 0.13 10^3/uL (0.00-0.10); ADD DIFF? NO; ADD MORPH? NO; ADD SCAN? NO; ATYPICAL LYMPHOCYTE FLAG 0 (0-99); FRAGMENT RBC FLAG 0 (0-99); HEMATOCRIT 42.3 % (40.0-51.0); LEFT SHIFT FLG 0 (0-99); LIPEMIA HEMOLYSIS FLAG 90 (0-99); MEAN CELL HEMOGLOBIN 30.3 pg (27.9-34.1); MEAN CELL HEMOGLOBIN CONCENTR. 35.5 g/dL (32.4-36.7); MEAN CELL VOLUME 85.5 fL (81.5-99.8); MEAN PLATELET VOLUME 9.5 fL (8.7-11.7); PLATELET CLUMPS FLAG 0 (0-99); PLATELET COUNT 214 10^3/uL (150-400); RED BLOOD CELL COUNT 4.95 10^6/uL (4.40-6.38)
[2017-02-02 21:26] LABS: ANION GAP 10 mEq/L (8-16); CALCIUM 9.4 mg/dL (8.5-10.4); CARBON DIOXIDE 22 mEq/l (22-31); CHLORIDE 102 mEq/L (97-110); CREATININE 1.1 mg/dL (0.7-1.3); GLOMERULAR FILTRATION RATE > 60; GLUCOSE 138 mg/dL (70-100); POTASSIUM 3.9 mEq/L (3.5-5.2); SODIUM 134 mEq/L (134-144)
[2017-02-02] MEDS ORDERED: ONDANSETRON 4 MG/2 ML VIAL IVP ONE (21:57)
[2017-02-02] MEDS ORDERED: levETIRAcetam 500 MG in NS 100 ML IV ONE (22:51)
[2017-02-02] MEDS ORDERED: HYDROmorphONE/DILAUDID 1 MG/ML INJ IVP ONE (23:24)
[2017-02-02] MEDS ORDERED: LR 1,000 ML IV SCH (23:30)
--- NOTE | 2017-02-03 00:02 | GHP ---
[f rep st] HISTORY AND PHYSICAL DATE OF ADMISSION: 02/02/2017 CHIEF COMPLAINT: Multiple falls, subarachnoid bleeding. HISTORY OF PRESENT ILLNESS: A 61-year-old male had dropped his off at the airport, was looking for his car and had apparently numerous falls striking his head on the cement. Workup at the [facility] Emergency Room showed subarachnoid hemorrhage and small subdural hemorrhage bilat erally in the frontal lobes as well as postsurgical changes from previous craniotomy. ALLERGIES: None. CURRENT MEDICATIONS: 1. Losartan. 2. Gabapentin. 3. Lexapro 20 mg p.o. daily. PREVIOUS SURGICAL PROCEDURES: Left breast biopsy. Small-bowel resection. Umbilical hernia repair. Craniotomy, 2006. Greenlight laser TURP. REVIEW OF SYSTEMS: The patient is weak in the left lower extremity after having West Nile in 2012. Denies asthma, heart trouble, heart attacks, diabetes, epilepsy, rheumatic fever. SOCIAL HISTORY: Nonsmoker, nondrinker. Employed. . PHYSICAL EXAMINATION: GENERAL: Somewhat somnolent male but arousable and appropriate. HEENT: PERR L, EOMI. Sclerae nonicteric. Pharynx is clear. Tongue protrudes in the midline. NECK: Nontender. No supraclavicular or axillary crepitus. Clavicles intact. LUNGS: Clear. HEART: Normal S1, S2 without murmur. CHEST WALL: Stable to compression. BACK: No cervical or posterior lumbar or thora cic spine tenderness. PELVIS: Stable to compression. SKIN: Abrasion on right and left knees. EXT REMITIES: Lower extremities unremarkable. Strength is 5/5 even though the patient has subjective we akness since the West Nile in the left leg. LABORATORY: Unremarkable. CT scan of the head described above with bifrontal subarachnoid bleeds. ASSESSMENT: Subarachnoid bleeding. Patient does take aspirin at home. Unclear when the last dose w as. PLAN: Admit. Neuro checks. Keppra prophylactically. Repeat CT scan in the morning. Neurosurgery evaluation in the morning. They are aware of his situation tonight and have seen his CT of the head. No other obvious injuries. /[id number]/MODL
[2017-02-03] MEDS: GABAPENTIN 300 MG CAP PO SCH ×2 (00:08→10:42)
[2017-02-03] MEDS: HYDROCODONE/APAP 5/325 TAB PO PRN (01:17)
[2017-02-03] MEDS ORDERED: IBUPROFEN 600 MG TAB PO SCH (06:00)
--- NOTE | 2017-02-03 07:44 | TRAUMAPN ---
- Problem/Surgery Performed (1) Fall from standing Assessment/Plan: s/p multiple falls/frontal SAH/no significant changes on repeat CT Qualifiers: Encounter type: initial encounter Qualified Code(s): W19.XXXA - Unspecified fall, initial encounter (2) Abrasions of multiple sites Assessment/Plan: uncomplicated superficial abrasions (3) Intracranial hemorrhage Assessment/Plan: subarachnoid hemorrhage/neurosurgery consult pending (5) Tenderness of neck Assessment/Plan: negative CT for fracture/given mechanism of injury I recommended an MRI to clear the C-spine (6) Diverticulitis large intestine Assessment/Plan: not clinically symptomatic at this time/will continue Cipro and Flagyl leukocytosis noted Qualifiers: Diverticulitis bleeding: without bleeding Diverticulitis complication: without perforation or abscess Qualified Code(s): K57.32 - Diverticulitis of large intestine without perforation or abscess without bleeding (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?/gaity testing not yet performed Assessment/Plan: s/p fall with significant frontal SAH tertiary exam completed with findings of midline cervical tenderness/low risk with neg CT but will rule out ligamentous injury with MRI Subjective: somnolent/answers questions appropriately, O x 3 Objective: Vital Signs Temp Pulse Resp BP Pulse Ox 36.4 C 67 18 135/66 H 95 02/03/17 00:18 02/03/17 00:18 02/03/17 00:18 02/03/17 00:18 02/03/17 00:18 02/02/17 02/03/17 02/04/17 05:59 05:59 05:59 Intake Total 561 Output Total 200 Balance 361 - C-Spine Clearance Cervical Spine Cleared: No Physical Exam - Physical Exam General Appearance: other (somnolent) EENT: PERRL/EOMI (dysconjugate gaze right eye/denies diplopia) Neck: tender midline (C4-5, no step off) Respiratory: chest non-tender, lungs clear, normal breath sounds Cardiac/Chest: regular rate, rhythm Abdomen: non-tender, soft Male Genitalia: normal genitalia, other (bladder scan >300ml/unable to void more than 50 ml) Rectal: deferred Extremities: other (multiple abrasions bilateral knees, right forearm/elbow, right shoulder) Neuro/Psych: oriented x 3, depressed affect
[2017-02-03 08:58] LABS: COLOR YELLOW; LEUKOCYTE ESTERASE,URINE NEGATIVE (NEGATIVE); NITRITE,URINE NEGATIVE (NEGATIVE)
[2017-02-03] MEDS ORDERED: metroNIDAZOLE 500 MG TAB PO SCH (09:00)
[2017-02-03] MEDS ORDERED: LOSARTAN/HCTZ 50/12.5 1 TAB PO SCH (09:00)
[2017-02-03] MEDS ORDERED: levETIRAcetam 500 MG TAB PO SCH (09:00)
[2017-02-03] MEDS ORDERED: CIPROFLOXACIN 500 MG TAB PO SCH (09:00)
--- NOTE | 2017-02-03 10:15 | SOAPPROG ---
Downtime Inpatient MD Late Entry SOAP Note: Casey clarified his medication list. He had completed a course of Cipro /Flagyl for diverticulitis and was not taking it at the time of admission. Order cancelled. Will request ID/Hospitalist consult Aki Stuart MD, FACS
--- NOTE | 2017-02-03 11:24 | GCON ---
[f rep st] CONSULTATION NEUROSURGICAL CONSULTATION CHIEF COMPLAINT: Headache. HISTORY OF PRESENT ILLNESS: The patient is a 61-year-old male known to Dr. Kaufman. He had a previous right-sided oligodendroglioma that was resected in 2006. He did well but, sometime after that, developed left-sided weakness for which he was diagnosed with West Nile encephalitis. He was at home last night when he apparently fell striking his head. He was evaluated in the emergency department, and head CT showed a diffuse traumatic subarachnoid hemorrhage with a parafalcine subdural hematoma. He was admitted for further evaluation. He currently complains of a mild headache. He denies any nausea or vomiting. He has chronic left arm and leg weakness. He denies any new right or leg weakness. PAST MEDICAL HISTORY: 1. Oligodendroglioma. 2. Segmental hydronephrosis. 3. Diverticulitis. 4. GERD. 5. Hypertension. 6. BPH. 7. West Nile encephalitis. PAST SURGICAL HISTORY: 1. Craniotomy for oligodendroglioma resection in 2006. 2. Inguinal hernia repair. 3. Appendectomy. MEDICATIONS: Prior to admission are aspirin, Neurontin, Prilosec, Cialis, valsartan, hydrochlorothiazide, TriCor, herbal supplements, melatonin, multivitamin, Cipro, Zofran, Flagyl, and oxycodone. ALLERGIES: Avodart and statins. FAMILY HISTORY: Patient has no family history of traumatic brain injury. SOCIAL HISTORY: Patient is with grown children. He denies smoking, drinking, or drug use. REVIEW OF SYSTEMS: Negative. PHYSICAL EXAMINATION: GENERAL: Patient is a 61-year-old male lying in bed, no apparent distress. HEAD, EYES, EARS, NOSE, AND THROAT: Negative. EXTREMITIES : [place], warm, and dry. NEUROLOGICAL: Patient is awake, alert, oriented x4. Pupils equal, round, reactive to light. Extraocular motions are intact. Tongue and uvula are midline. His motor strength is 5/5 in his right arm and leg. He is plegic in his left arm and leg. His sensation is grossly intact to light touch in his arms and legs. Deep tendon reflexes are 1+/4 in the bilateral biceps, triceps, brachioradialis, patellar, and Achilles. DIAGNOSTIC STUDIES: The head CT without contrast in [facility] shows a diffuse frontal traumatic subarachnoid hemorrhage with a small parafalcine subdural hematoma. There is a hypodensity along the right inferior frontal lobe consistent with his previous tumor resection. IMPRESSION: This is a 61-year-old male with a traumatic subarachnoid hemorrhage and subdural hematoma after a fall. He is neurologically stable. PLAN: All the above discussed in detail with the patient. The patient was seen by Dr. Twin Kaufman at 7:07 this morning. At this point in time, we will obtain an MRI of the brain with and without contrast to determine if there is any recurrence of his tumor, which may be contributing to his falls. He did have an MRI from October of 2016, which was stable. The patient has been stable overnight and could be transferred to the floor with q.4 hours neuro checks. He does not require any Keppra. We will make further treatment recommendations upon completion of his MRI. /[id number]/MODL MTDD
[2017-02-03] MEDS ORDERED: GADOBUTROL 10 ML VIAL IVP ONE (11:42)
--- NOTE | 2017-02-03 14:14 | ASMTCMCOM ---
CM Note CM Note Notes: Chart reviewed. Patient with trauma to head post fall. Hx of craniotomy in past. Per PT inpatient rehab probable good option for pt on discharge.. Call to Kitty. She is reviewing patient today. [facility] CM to follow. Date Signed: 02/03/2017 02:13 PM Electronically Signed By:[place] RN
--- NOTE | 2017-02-03 14:32 | GCON ---
[f rep st] CONSULTATION INTERNAL MEDICINE CONSULTATION DATE OF CONSULTATION: 02/03/2017 CHIEF COMPLAINT: Weakness, falls. HISTORY: The patient is a 61-year-old male with a history of West Nile encephalitis in 2012, that bhatti s left him with chronic left-sided weakness, cognitive deficits, balance issues, and a contracture. He also has a history of oligodendroglioma in 2006, status post craniotomy. 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 He does, wiley shalom, have minimal reserve and fatigues easily. On the day of admission (yesterday) he drove his to the airport and dropped her off at security. His went through security and when she was waiting at her gate, she noticed a lot of calls fro m him. She called him back and he stated he could not find his car. Multiple phone calls later, and with airport security getting involved, eventually she found him 30 minutes later lying in the [facility] ng lot. Bystanders said that they had witnessed multiple falls and he appeared drunk. The patient a ctually remembers the entire event and just states that, after getting lost in the airport, he got ex traordinarily fatigued because that is more activity than he is typically capable of doing. With thi s fatigue, he lost his balance and became even worse, and he had a mechanical fall. He remembers the entire event and denies ever having any syncope. He hit his head on 1 of these falls. PAST MEDICAL HISTORY: 1. 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 2. Transient dysphagia requiring PEG tube, subsequently discontinued. 3. Oligodendroglioma in 2006, status post craniotomy. 4. Kidney stones. 5. Diverticulosis, status post colon resection. 6. BPH, status post TURP. 7. Hypertension. 8. Hyperlipidemia. PAST SURGICAL HISTORY: Also includes hernia surgery and appendectomy. MEDICATIONS: Please see computer record for full detailed list. His Lexapro was doubled only 5 days prior to admission, and this did worsen his balance. ALLERGIES: Statin drug. SOCIAL HISTORY: No smoking. No alcohol. Lives with his . Works 3 times a week as a delivery [employer]. REVIEW OF SYSTEMS: Complete review of systems obtained. Review of systems negative regarding consti tutional, HEENT, GI, pulmonary, cardiovascular, , hematology, skin, muscular, endocrine, psych, exc ept for positives as in HPI. FAMILY HISTORY: Reviewed and noncontributory to current complaint. PHYSICAL EXAMINATION: GENERAL: Well-developed male in no acute distress. VITAL SIGNS: Temperature is 37.2, pulse 82, blood pressure 136/72, sat 93% on 2 L. EYES: Normal conjunctivae. Pupils react to light. ENT: Normal ears and nose. Hearing intact. Normal teeth. Oropharynx moist. NECK: Tr achea midline. No thyromegaly. CHEST: Normal effort. LUNGS: Cleat auscultation bilaterally. CAR DIOVASCULAR: Regular rate and rhythm. No murmur. No extremity edema. ABDOMEN: Soft, nontender. No hepatosplenomegaly. SKIN: Warm, dry, and intact. No rash. MUSCULOSKELETAL: No cyanosis or clu bbing. Strength 0/5 left upper extremity. NEURO: Cranial nerves intact. PSYCH: Alert oriented x3 . Normal mood and affect. Normal judgment and insight. Normal memory. LABORATORY: White count 15.78, hematocrit 42.3, platelets 219. Sodium 134, potassium 3.9, chloride 102, bicarb 22, BUN 24, creatinine 1.0, glucose 138. Urinalysis is negative. Chest x-ray is negative. MEDICAL RECORD REVIEW: Medical records are extensive. I just summarized them under past medical his tory above. This case was discussed with Dr. Santino Stuart of Trauma Surgery. He has asked for an internal medicin e consultation given patient's medical complexity. ASSESSMENT/PLAN: 1. Traumatic subarachnoid hemorrhage and subdural hematoma. He has been seen by Neurosurgery. They are recommending q.4 hours neuro checks. They did not think he needs any Keppra. 2. Oligodendroglioma. Repeat MRI has been ordered by Neurosurgery to reassess his tumor, to make bird re it is not the etiology of his recurrent falls. 3. West Nile encephalitis. When he gets a medical illness, he typically gets worsening of his under lying deficits, including left-sided weakness and slurred speech. Will get Physical Therapy and Occu pational Therapy to see him in consultation, as well as Speech Therapy for swallow. He remains n.p.o . at this time. 4. Leukocytosis. Will rule out infection, although at this point, I suspect a stress response. Swathi st x-ray and urinalysis are negative. 5. Metabolic encephalopathy. He is slowly waking up and is now appropriate. DVT PROPHYLAXIS: Given subarachnoid hemorrhage, cannot use Lovenox so will ensure he has SCDs in chelsi ce. /[id number]/MODL
--- NOTE | 2017-02-03 15:12 | GCON ---
[f rep st] CONSULTATION INFECTIOUS DISEASE CONSULTATION DATE OF CONSULTATION: 02/03/2017 REASON FOR CONSULTATION: Leukocytosis. PROVIDER REQUESTING CONSULTATION: Thony Stuart MD. HISTORY OF PRESENT ILLNESS: A 61-year-old male with a past medical history of an oligodendroglioma and West Nile aseptic meningitis, with a residual weakness and dysphagia in 11/2012, who was in his usual state of health until 02/02/2017 , when he sustained falls while at the airport looking for his car due to generalized fatigue. The patient denies any loss of consciousness, but just was weak and tripped over his own foot, falling multiple times. People nearby initially thought he was drunk and someone identified him lying on the ground and called EMS. Patient's subsequently returned from the airport, deferred EMS transport, and brought him to the emergency room herself. He was found to have an acute subdural subarachnoid and parenchymal hemorrhage bilaterally and has been monitored in the ICU since. Patient just underwent an MRI to better delineate disease and stability. Following this fall, patient has had worsening left-sided hemiparesis and a right gaze preference. He is alert, oriented x4, and able to answer yes/no questions to a complete review of systems, denying abdominal pain, fevers, and chills. He has a baseline cough with eating that is unchanged. PAST MEDICAL/SURGICAL HISTORY: 1. Oligodendroglioma, status post craniotomy for resection in 2006. 2. BPH, status post GreenLight therapy, 03/2014. 3. Diverticulitis, most recent episode 09/29/2016. He initially received IV ertapenem and was discharged on Cipro and Flagyl. 4. Gastroesophageal reflux disease. 5. Hypertension. 6. West Nile virus in 11/2012. 7. Appendectomy and inguinal hernia repair. MEDICATIONS: While in the hospital include: [place] 5/325 at 1-2 p.o. q.6 p.r.n. , TriCor 72 mg daily, gabapentin 600 mg daily, hydrochlorothiazide 12.5 mg daily , Myrbetriq 50 mg daily, morphine 1-2 mg IV q.1 p.r.n., Protonix 40 mg daily, valsartan 160 mg daily. ALLERGIES: Dutasteride and statins. 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 He has been to his current for 4 years. He has never smoked and does not use alcohol. VACCINATIONS: He received his influenza vaccination this month. His pneumonia vaccination was in November 2012 and has received a tetanus vaccination within 10 years. FAMILY HISTORY: Reviewed and noncontributory. REVIEW OF SYSTEMS: A 10-point review of systems was performed and is negative except as mentioned in HPI with the exception also of some weight loss since the last hospitalization. PHYSICAL EXAMINATION: VITAL SIGNS: Blood pressure 136/72, heart rate 82, respiratory rate 19, saturation 93% in room air, and temperature 7.4. He has been afebrile throughout his hospital course. GENERAL: This is a male lying flat in bed, no acute distress HEENT: Has fair dentition. Moist mucous membranes. No oral ulcerations. Conjunctivae without hemorrhage. Scalp exam reveals a paucity of scalp lacerations. NECK: Supple. CARDIOVASCULAR: Regular rate. No murmurs. CHEST: Clear to auscultation bilaterally. ABDOMEN : Soft, nontender. Bowel sounds present. : No Moss. EXTREMITIES: No clubbing, cyanosis, or edema. NEUROLOGIC: Patient has left sided weakness with contracture of his hand, unclear baseline; patient's reports it is worse. Patient also has a right gaze preference. He is alert and oriented x4. SKIN: Without rash. LABORATORY: White count 15, hematocrit 42, platelets of 214, 85% neutrophils. Creatinine 1.1. Urinalysis was negative. 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 He also has a more remote history of oligodendroglioma. He unfortunately sustained a fall resulting in a subdural, subarachnoid, and parenchymal hemorrhage bilaterally. Laboratories show a mild leukocytosis with a normal hematocrit and platelets. Likely leukemoid reaction related to head trauma. No other focal signs of infection. This was reviewed with the patient's in detail. Continue off antibiotics and would check serial white blood cell counts, but it would not be completely unexpected if leukocytosis persists. ID will continue to follow up in the next couple days. /[id number]/MODL MTDD
[2017-02-03] MEDS ORDERED: BACITRACIN OINTMENT 1 PACKET TP ONE (15:25)
[2017-02-03] MEDS ORDERED: NS 1,000 ML IV SCH (15:45)
--- NOTE | 2017-02-03 15:51 | CPEKG ---
Heart Rate: 58 RR Interval: 1034 P-R Interval: 160 QRSD Interval: 98 QT Interval: 444 QTC Interval: 437 P [place]: 62 QRS [place]: 53 T Wave [place]: 32 EKG Severity - NORMAL ECG - EKG Impression: SINUS RHYTHM Electronically Signed By: Kiko Diaz 04-Feb-2017 14:16:48
[2017-02-03] MEDS: BACITRACIN OINTMENT 1 PACKET TP SCH (16:06)
--- NOTE | 2017-02-03 18:42 | SOAPPROG ---
Downtime Inpatient MD Late Entry SOAP Note: cervical MRI shows no evidence of acute injury/chronic degenerative changes consistant with CT findings Brain MRI-no evidence of tumor recurrence/bifrontal SAH/no shift Quentin is sitting up in bed and eating some applesauce, his son Jeff is at the bedside He continues to complain of neck pain. He has been unable to void more than 50ml at a time and is retaining >200ml will continue in/out cath prn. discussed with Dr. Kaufman
--- NOTE | 2017-02-03 21:59 | GCON ---
[f rep st] CONSULTATION PULMONARY CRITICAL CARE CONSULTATION DATE OF CONSULTATION: 02/03/2017 REASON FOR CONSULTATION: Abnormal mental status secondary to closed head injury. HISTORY: The patient is a 61-year-old gentleman with a history of previously resected oligodendrogli patricia and neurologic deficits secondary to previous West Nile virus in 2012. He had an unwitnessed fal l at the airport when he was apparently looking for his car. He apparently did not lose consciousnes s. He was brought to the emergency department here on the request of his . He was found to have an acute subdural and subarachnoid hemorrhage with some intraparenchymal hemorrhage, as well. He wa s admitted to the intensive care unit. He has been seen by Trauma Surgery, Neurosurgery, and Infecti ous Disease. PAST MEDICAL HISTORY: Remarkable for the oligodendroglioma and resection in 2006, West Nile virus en cephalitis in 2012 with residual neurologic deficits, systemic hypertension, gastroesophageal reflux disease, history of diverticulitis. PAST SURGICAL HISTORY: He is status post appendectomy and herniorrhaphy. MEDICATIONS: Outpatient on admission included mirabegron, Excedrin, Neurontin, Tri-Cor, valsartan/hy drochlorothiazide, omeprazole, and p.r.n. Zofran. SOCIAL HISTORY: The patient is with his very supportive and knowledgeable . Tobacco is negative, alcohol is negative. 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 FAMILY HISTORY: Noncontributory. REVIEW OF SYSTEMS: Difficult to obtain directly from the patient. Negative except as mentioned in t he HPI. PHYSICAL EXAMINATION: GENERAL: Reveals a gentleman, who is lying comfortably in bed. His head is d eviated to the right. There is an ice pack over his neck, and he complains of neck pain. He is slee ping, but is arousable and conversant, with slightly slow responses. VITAL SIGNS: Blood pressure is 135/70, heart rate 82 with sinus rhythm on the monitor, respiratory rate is 18, on 2 L saturations a re 95%. He is afebrile. HEENT: Unremarkable for lymphadenopathy or thyromegaly. CHEST: Clear tacos aterally. Breath sounds are somewhat diminished at the bases. HEART: Regular in rate and rhythm wi thout significant murmur or gallop. ABDOMEN: Soft and nontender. Bowel sounds are present. A Fole y catheter is in place. EXTREMITIES: Remarkable for compression devices being in place. There is n o significant edema. SKIN: Shows some scattered abrasions. NEUROLOGIC: Examination is nonfocal, b ut somewhat difficult to assess currently based on lethargy. He does move all extremities. Weakness is present, but it is difficult to lateralize. RADIOLOGIC STUDIES: CT scan of the head is as outlined above. MRI of the neck shows no evidence of acute disease. Degenerative disease is present. MRI of the brain is consistent with that of the CT scan as outlined above with intraparenchymal hemorrhage, subdural hematomas bilaterally, and subarach noid hemorrhage with blood in the lateral ventricles. LABORATORY DATA: White blood cell count is 15,000, hematocrit 42, platelets 214,000. Chemistries ar e within normal limits. Urinalysis on admission was normal. ASSESSMENT: 1. Status post closed head injury with abnormal mental status. This is associated with intraparench ymal, subarachnoid, and subdural hemorrhage. He has been seen by Neurosurgery and is not felt to be a surgical candidate at this time. They are following. 2. Abnormal mental status. This is in part secondary to his acute closed head injury and its affect s. He also has a history of previous encephalitis secondary to West Nile virus. 3. Infectious disease: There is no evidence of any acute infectious disease process. He has been s een by Dr. Bar. PLAN AND RECOMMENDATIONS: The patient will be kept in the intensive care unit for neuro checks. Uriel ropriate pain medication will be continued. Supportive care will be maintained. No anticoagulants w ill be given secondary to his acute bleed. DVT prophylaxis will be maintained with SCDs. His usual outpatient medications will be continued. Further plans and recommendations will be made based on his progress over the next 12-24 hours. /[id number]/MODL
[2017-02-04] MEDS: GABAPENTIN 300 MG CAP PO SCH ×2 (00:13→20:41)
[2017-02-04 05:22] LABS: % IMMATURE GRANULYOCYTES 0.2 % (0.0-1.1); ABSOLUTE IMMATURE GRANULOCYTES 0.02 10^3/uL (0.00-0.10); ADD DIFF? NO; ADD MORPH? NO; ADD SCAN? NO; ATYPICAL LYMPHOCYTE FLAG 0 (0-99); FRAGMENT RBC FLAG 0 (0-99); HEMATOCRIT 37.8 % (40.0-51.0); HEMOGLOBIN 13.2 g/dL (13.7-17.5); LEFT SHIFT FLG 0 (0-99); LIPEMIA HEMOLYSIS FLAG 90 (0-99); MEAN CELL HEMOGLOBIN 30.2 pg (27.9-34.1); MEAN CELL HEMOGLOBIN CONCENTR. 34.9 g/dL (32.4-36.7); MEAN CELL VOLUME 86.5 fL (81.5-99.8); MEAN PLATELET VOLUME 9.6 fL (8.7-11.7); PLATELET CLUMPS FLAG 0 (0-99); PLATELET COUNT 169 10^3/uL (150-400); RED BLOOD CELL COUNT 4.37 10^6/uL (4.40-6.38); RED CELL DISTRIBUTION WIDTH 12.9 % (11.5-15.2)
[2017-02-04 05:45] LABS: ANION GAP 9 mEq/L (8-16); CALCIUM 8.9 mg/dL (8.5-10.4); CARBON DIOXIDE 24 mEq/l (22-31); CHLORIDE 105 mEq/L (97-110); CREATININE 0.9 mg/dL (0.7-1.3); GLOMERULAR FILTRATION RATE > 60; GLUCOSE 98 mg/dL (70-100); POTASSIUM 4.1 mEq/L (3.5-5.2); SODIUM 138 mEq/L (134-144)
[2017-02-04] MEDS: HYDROCHLOROTHIAZIDE 12.5 MG CAP PO SCH (08:33)
[2017-02-04] MEDS: VALSARTAN 160 MG TAB PO SCH (08:33)
[2017-02-04] MEDS: FENOFIBRATE 145 MG TAB PO SCH (08:34)
[2017-02-04] MEDS: PANTOPRAZOLE SODIUM 40 MG TAB PO SCH (08:35)
[2017-02-04] MEDS ORDERED: Mirabegron [Myrbetriq] 50 MG PO SCH (09:00)
[2017-02-04] MEDS ORDERED: NON-FORMULARY NEW DRUG (Mirabegron [Myrbetriq] 50 MG) PO SCH (09:00)
[2017-02-04] MEDS ORDERED: NON-FORMULARY NEW DRUG (Valsartan/Hydrochlorothiazide [Valsartan-Hctz 160-12.5 Mg Tab] 1 E PO SCH (09:00)
[2017-02-04] MEDS ORDERED: NON-FORMULARY NEW DRUG (Omeprazole [Prilosec 20 Mg] 40 MG) PO SCH (09:00)
[2017-02-04] MEDS: HYDROCODONE/APAP 5/325 TAB PO PRN (09:47)
--- NOTE | 2017-02-04 10:08 | TRAUMAPN ---
- Problem/Surgery Performed (1) Fall from standing Assessment/Plan: Quentin is a 61-year-old gentleman with a history of glioma excision in 2006 status post radiation who presents after multiple witnessed falls at the airport several days ago. The patient explained that he was extremely fatigued after walking to the airport which is more activity than he is used to. However his admits that his mental status is quite altered to when he dropped her off initially at security prior to his falls. He is now oriented to person place and time he has tolerated diet. He has a history of left hemiparesis and right gaze after West Nile the viral infection earlier this year. He has also history of diverticulosis and diverticulitis he presented with leukocytosis and has been seen by infectious disease. Medicine has also seen him in consultation. Subdural hematomas were noted as well as some intraparenchymal hemorrhage on MRI of the brain. Neurosurgical consultation concludes he is stable from previous MRI in October of this year. Currently the patient has no specific complaints Oriented to person place time and the events around his injury. Regular rate and rhythm Clear to auscultation bilaterally Right lateral gaze improving. No nystagmus extraocular motions intact Left hemiparesis. Right side strong 5+ over 5+ muscle strength Abdomen soft nontender nondistended Extremities without edema Intact peripheral pulses minor abrasions healing Impression: Fall from standing height multiple times after change in his overall baseline medical condition. Subdural hematomas and abrasions. Leukocytosis resolved white blood cell count this morning 9.9 down from 15 Plan: Appreciate Medicine, infectious disease, critical care and neurosurgical consultations. Transfer to floor q.4 hours neuro checks No current need for antibiotic coverage. PT, OT, speech evaluation per protocol May require rehab post discharge Qualifiers: Encounter type: initial encounter Qualified Code(s): W19.XXXA - Unspecified fall, initial encounter Objective: Vital Signs Temp Pulse Resp BP Pulse Ox 36.7 C 53 L 16 133/67 H 96 02/04/17 07:46 02/04/17 07:46 02/04/17 07:46 02/04/17 07:46 02/04/17 07:46 Laboratory Results 02/04/17 05:10 02/04/17 05:10 02/03/17 02/04/17 02/05/17 05:59 05:59 05:59 Intake Total 561 1138 Output Total 200 1300 250 Balance 361 -162 -250 - C-Spine Clearance Cervical Spine Cleared: No
--- NOTE | 2017-02-04 10:33 | NEUSURGPN ---
Assessment/Plan: S: Patient has a mild headache this am, no nausea, vomiting. Also complaining of neck pain. O: NAD, VSS PERRL, EOMI CN II-XII grossly intact LUE/LLE- 4-/5 as was prior from hx of west nile and left sided paresis RUE/RLE 5/5= Sensation intact to lt touch A: 61 yo male with MMP and hx of resecction of oligodendroglioma grade III by Dr. Kaufman. SP fall from standing with small frontal sontusions, falcine SDH, and tSAH. P: -Neuro- Stable overall -MRI brain shows SAH/SDH but no tumor recurrence -MRI C-spine shows no fx or ligamentous injury -Ok for q4 neuro checks -Ok to transfer to floor from neurosurgery standpoint -PT.OT -Dispo-if clears therapies, may be able to discharge tomorrow, will leave up to primary team -No more scans unless he has change in neuro scan -Discussed with Dr. Kaufman - Physician Discussed Patient with Dr.: Kaufman Patient Seen by : Mandeep Neurosurgery Physical Exam - Vitals, I&O, Labs I and O 02/03/17 02/04/17 02/05/17 05:59 05:59 05:59 Intake Total 561 1138 Output Total 200 1300 250 Balance 361 -162 -250 Weight 75.3 kg 75.3 kg Intake: Oral (ml) 150 200 IV Infused (ml) 411 938 Lr 1,000 ml @ 100 mls/hr 411 938 IV CONT OBDULIA Rx#: [id number] Output: Urine (ml) 200 1300 250 Catheter 300 Urinal 200 1000 250 Other: Number of Voids Incontinence 1 Urinal 2 1 Post Void Residual Scan Volume (ml) Urinal 124 Vital Signs Temp Pulse Resp BP Pulse Ox 36.7 C 53 L 16 133/67 H 96 02/04/17 07:46 02/04/17 07:46 02/04/17 07:46 02/04/17 07:46 02/04/17 07:46 Laboratory Results 02/04/17 05:10 02/04/17 05:10 ICD10 Worksheet Patient Problems: Problems Problem Status Onset Abrasions of multiple sites Acute Fall from standing Acute Intracranial hemorrhage Acute Tenderness of neck Acute Urinary retention Acute Diverticulitis large intestine Acute History of West Nile virus (WNV) infection Acute Truncal ataxia Acute
[2017-02-04] MEDS: METHYL FOLATE PO SCH (11:14)
[2017-02-04] MEDS: Mirabegron [Myrbetriq] 50 MG PO SCH (11:16)
--- NOTE | 2017-02-04 12:33 | ASMTCMCOM ---
CM Note CM Note Notes: Chart reviewed. Spoke with Kitty regarding inpatient bed. Unable to accept until next Wednesday if indicated. Referral to be made to [facility] if therapies indicate that is appropriate. CM to follow. Date Signed: 02/04/2017 12:32 PM Electronically Signed By:[place] RN
--- NOTE | 2017-02-04 16:04 | HOSPPROG ---
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, cognitive deficits * Oligodendroglioma s/p resection -no change by MRI * Leukocytosis - improving -no evidence for infection * Metabolic encephalopathy -suspect due to fatigue from excessive walking through airport -now back to baseline Dispo - to Rehab in am if stable Subjective: Denies complaints. Objective: Vital Signs Temp Pulse Resp BP Pulse Ox 36.5 C 52 L 16 140/79 H 91 L 02/04/17 15:14 02/04/17 15:14 02/04/17 15:14 02/04/17 15:14 02/04/17 15:14 Laboratory Results 02/04/17 05:10 02/04/17 05:10 02/03/17 02/04/17 02/05/17 05:59 05:59 05:59 Intake Total 561 1138 Output Total 200 1300 250 Balance 361 -162 -250 - Physical Exam Constitutional: no apparent distress, appears nourished, not in pain Cardiovascular: regular rate and rhythym, no murmur, rub, or gallop Respiratory: no respiratory distress, no rales or rhonchi, clear to auscultation Gastrointestinal: normoactive bowel sounds, soft, non-tender abdomen, no palpable masses Skin: no rashes or abrasions, no fluctuance, no induration Neurologic: AAOx3, weakness Psychiatric: interacting appropriately, not anxious, not encephalopathic, thought process linear ICD10 Worksheet Patient Problems: Problems Problem Status Onset Abrasions of multiple sites Acute Fall from standing Acute Intracranial hemorrhage Acute Tenderness of neck Acute Urinary retention Acute Diverticulitis large intestine Acute History of West Nile virus (WNV) infection Acute Truncal ataxia Acute
[2017-02-04] MEDS: traMADol 50 MG TAB PO PRN ×2 (16:07→22:54)
[2017-02-04] MEDS: BACITRACIN OINTMENT 1 PACKET TP SCH (18:25)
--- NOTE | 2017-02-05 08:25 | NEUSURGPN ---
Assessment/Plan: A: 61 yo male with MMP and hx of resection of oligodendroglioma grade III by Dr. Kaufman. SP fall from standing with small frontal sontusions, falcine SDH, and tSAH. P: -Neuro- Stable overall -MRI brain shows SAH/SDH but no tumor recurrence -MRI C-spine shows no fx or ligamentous injury -PT/OT -No more scans unless he has change in neuro scan -Will s/o at this time. Please notify NS with any change in neuro/motor exam. Okay to discharge to from a medicine prospective. -Discussed with Dr. Kaufman Subjective: Denies any headaches, nausea, dizziness, or pain. Objective: NAD A&Ox3 CN II-XII grossly intact. PERRLA. MAEx4 5/ and equal in BUE and BLE. - Physician Discussed Patient with : Mandeep Neurosurgery Physical Exam - Vitals, I&O, Labs I and O 02/04/17 02/05/17 02/06/17 05:59 05:59 05:59 Intake Total 1138 1700 250 Output Total 1300 350 Balance -162 1350 250 Weight 75.3 kg Intake: Oral (ml) 200 1700 250 IV Infused (ml) 938 Lr 1,000 ml @ 100 mls/hr 938 IV CONT OBDULIA Rx#: [id number] Output: Urine (ml) 1300 350 Catheter 300 Urinal 1000 350 Other: Number of Voids Incontinence 1 Toilet 1 1 Urinal 2 1 Bladder Scan Volume (ml) Toilet 59 Post Void Residual Scan Volume (ml) Urinal 124 Vital Signs Temp Pulse Resp BP Pulse Ox 36.9 C 58 L 16 118/78 94 02/05/17 04:00 02/05/17 04:00 02/05/17 04:00 02/05/17 04:00 02/05/17 04:00 Laboratory Results 02/04/17 05:10 02/04/17 05:10 ICD10 Worksheet Patient Problems: Problems Problem Status Onset Abrasions of multiple sites Acute Fall from standing Acute Intracranial hemorrhage Acute Tenderness of neck Acute Urinary retention Acute Diverticulitis large intestine Acute History of West Nile virus (WNV) infection Acute Truncal ataxia Acute
[2017-02-05] MEDS: traMADol 50 MG TAB PO PRN ×3 (09:03→20:55)
[2017-02-05] MEDS: FENOFIBRATE 145 MG TAB PO SCH (09:05)
[2017-02-05] MEDS: PANTOPRAZOLE SODIUM 40 MG TAB PO SCH (09:06)
[2017-02-05] MEDS: VALSARTAN 160 MG TAB PO SCH (09:06)
[2017-02-05] MEDS: HYDROCHLOROTHIAZIDE 12.5 MG CAP PO SCH (09:08)
[2017-02-05] MEDS: BACITRACIN OINTMENT 1 PACKET TP SCH (09:09)
[2017-02-05] MEDS: Mirabegron [Myrbetriq] 50 MG PO SCH (09:11)
[2017-02-05] MEDS: METHYL FOLATE PO SCH (09:11)
--- NOTE | 2017-02-05 09:17 | TRAUMAPN ---
- Problem/Surgery Performed (1) Fall from standing Assessment/Plan: s/p multiple falls/frontal SAH/no significant changes on repeat CT Qualifiers: Encounter type: initial encounter Qualified Code(s): W19.XXXA - Unspecified fall, initial encounter (2) Abrasions of multiple sites Assessment/Plan: uncomplicated superficial abrasions (3) Intracranial hemorrhage Assessment/Plan: subarachnoid hemorrhage/neurosurgery has signed off of the case I would recommend outpatient follow up with Dr. 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?/gait testing reveals left sided weakness with ataxia Assessment/Plan: s/p fall with significant frontal SAH no other injuries identified Quentin is a good candidate for inpatient rehab and would ready for transfer if a bed is available Subjective: sitting up in a bedside chair enjoying breakfast Objective: Vital Signs Temp Pulse Resp BP Pulse Ox 36.9 C 58 L 16 118/78 94 02/05/17 08:00 02/05/17 08:00 02/05/17 08:00 02/05/17 08:00 02/05/17 08:00 Laboratory Results 02/04/17 05:10 02/04/17 05:10 02/04/17 02/05/17 02/06/17 05:59 05:59 05:59 Intake Total 1138 1700 250 Output Total 1300 350 Balance -162 1350 250 - C-Spine Clearance Cervical Spine Cleared: No Physical Exam - Physical Exam General Appearance: no apparent distress EENT: PERRL/EOMI Neck: tender midline Respiratory: lungs clear, normal breath sounds Cardiac/Chest: regular rate, rhythm Abdomen: non-tender, soft Male Genitalia: deferred Rectal: deferred Back: Normal inspection Skin: normal color, warm/dry Extremities: normal range of motion, non-tender Neuro/Psych: abnormal gait (ataxia left), motor weakness (left sided) Time Spent w/Patient (minutes): 30 (filled out travel forms for patient's Melany)
--- NOTE | 2017-02-05 16:34 | ASMTCMCOM ---
CM Note CM Note Notes: Referral sent to [facility] inpatient rehab, they started an assessment on pt and will pause assessment because pt and are adamant pt will go to [facility] inpatient rehab. CM would need to contact Halina Braswell to resume assessment if needed for [facility]. [facility] inpatient rehab bed likely not available until Wednesday02/09/17. CM to follow. Date Signed: 02/05/2017 04:34 PM Electronically Signed By:IBLL Jimenez
[2017-02-05] MEDS: ACETAMINOPHEN 325 MG TAB PO PRN (17:24)
--- NOTE | 2017-02-05 18:01 | HOSPPROG ---
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, cognitive deficits * Oligodendroglioma s/p resection -no change by MRI * Leukocytosis - improving -no evidence for infection * Metabolic encephalopathy -suspect due to fatigue from [place] airport -now back to baseline Dispo - accepted at inpatient rehab - next Wednesday Subjective: Doing better Objective: Vital Signs Temp Pulse Resp BP Pulse Ox 36.9 C 54 L 15 156/68 H 94 02/05/17 08:00 02/05/17 15:48 02/05/17 15:48 02/05/17 15:48 02/05/17 15:48 Laboratory Results 02/04/17 05:10 02/04/17 05:10 02/04/17 02/05/17 02/06/17 05:59 05:59 05:59 Intake Total 1138 1700 600 Output Total 1300 350 Balance -162 1350 600 - Physical Exam Constitutional: no apparent distress, appears nourished, not in pain Cardiovascular: regular rate and rhythym, no murmur, rub, or gallop Respiratory: no respiratory distress, no rales or rhonchi, clear to auscultation Gastrointestinal: normoactive bowel sounds, soft, non-tender abdomen, no palpable masses Skin: no rashes or abrasions, no fluctuance, no induration Neurologic: AAOx3, sensation intact bilaterally Psychiatric: interacting appropriately, not anxious, not encephalopathic, thought process linear ICD10 Worksheet Patient Problems: Problems Problem Status Onset Abrasions of multiple sites Acute Fall from standing Acute Intracranial hemorrhage Acute Tenderness of neck Acute Urinary retention Acute Diverticulitis large intestine Acute History of West Nile virus (WNV) infection Acute Truncal ataxia Acute
[2017-02-05] MEDS: GABAPENTIN 300 MG CAP PO SCH (20:57)
[2017-02-06] MEDS: traMADol 50 MG TAB PO PRN ×4 (01:54→22:31)
[2017-02-06] MEDS: ACETAMINOPHEN 325 MG TAB PO PRN ×3 (06:34→20:15)
--- NOTE | 2017-02-06 08:20 | NEUSURGPN ---
Assessment/Plan: A: 61 yo male with MMP and hx of resection of oligodendroglioma grade III by Dr. Kaufman. SP fall from standing with small frontal sontusions, falcine SDH, and tSAH. P: -Neuro- Stable overall. He did have a moderate headache over night that has improved with Tylenol. Will monitor today and hold on any repeat imaging at this time -MRI brain shows SAH/SDH but no tumor recurrence -MRI C-spine shows no fx or ligamentous injury -PT/OT -No more scans unless he has change in neuro scan -Will s/o at this time. Please notify NS with any change in neuro/motor exam. Okay to discharge to from a medicine prospective. -Discussed with Dr. Kaufman Subjective: Headache over night, improved with Tylenol. Denies any weakness, nausea, dizziness Objective: NAD A&Ox3 MAEx4 5/5 and equal in BUE and BLE. CN II-XII grossly intact - Physician Discussed Patient with : Mandeep Neurosurgery Physical Exam - Vitals, I&O, Labs I and O 02/05/17 02/06/17 02/07/17 05:59 05:59 05:59 Intake Total 1700 600 Output Total 350 Balance 1350 600 Intake: Oral (ml) 1700 600 Output: Urine (ml) 350 Urinal 350 Other: Intake Quantity Yes Sufficient Number of Voids Toilet 1 1 Urinal 1 Bladder Scan Volume (ml) Toilet 59 189 Vital Signs Temp Pulse Resp BP Pulse Ox 36.3 C 55 L 12 141/79 H 91 L 02/06/17 08:00 02/06/17 08:00 02/06/17 08:00 02/06/17 08:00 02/06/17 08:00 Laboratory Results 02/04/17 05:10 02/04/17 05:10 ICD10 Worksheet Patient Problems: Problems Problem Status Onset Abrasions of multiple sites Acute Fall from standing Acute Intracranial hemorrhage Acute Tenderness of neck Acute Urinary retention Acute Diverticulitis large intestine Acute History of West Nile virus (WNV) infection Acute Truncal ataxia Acute
[2017-02-06] MEDS: FENOFIBRATE 145 MG TAB PO SCH (08:47)
[2017-02-06] MEDS: HYDROCHLOROTHIAZIDE 12.5 MG CAP PO SCH (08:48)
[2017-02-06] MEDS: PANTOPRAZOLE SODIUM 40 MG TAB PO SCH (08:48)
[2017-02-06] MEDS: VALSARTAN 160 MG TAB PO SCH (08:48)
[2017-02-06] MEDS: METHYL FOLATE PO SCH (08:49)
[2017-02-06] MEDS: BACITRACIN OINTMENT 1 PACKET TP SCH (08:49)
[2017-02-06] MEDS: Mirabegron [Myrbetriq] 50 MG PO SCH (08:49)
--- NOTE | 2017-02-06 10:48 | TRAUMAPN ---
Assessment/Plan: 61yo M s/p chronic falls c SAH/SDH (stable) Neuro: has been nonfocal and stable. Did have a TANG last night which was well controlled with tramadol. Encephalopathy has improved and per report patient is at baseline Dispo: patient and family wants [facility] inpatient rehab, per CM, bed not likely available until Wednesday. Will stay here until then. No new issues identified on exam today Subjective: Resting in bed, daughter at bedside. No complaints. Objective: Vital Signs Temp Pulse Resp BP Pulse Ox 36.3 C 55 L 12 141/79 H 91 L 02/06/17 08:00 02/06/17 08:00 02/06/17 08:00 02/06/17 08:00 02/06/17 08:00 Laboratory Results 02/04/17 05:10 02/04/17 05:10 02/05/17 02/06/17 02/07/17 05:59 05:59 05:59 Intake Total 1700 600 Output Total 350 Balance 1350 600 - C-Spine Clearance Cervical Spine Cleared: No
--- NOTE | 2017-02-06 16:10 | HOSPPROG ---
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 patient seen walking in [place] Objective: Vital Signs Temp Pulse Resp BP Pulse Ox 36.6 C 55 L 12 135/85 H 93 02/06/17 11:54 02/06/17 11:54 02/06/17 11:54 02/06/17 11:54 02/06/17 11:54 Laboratory Results 02/04/17 05:10 02/04/17 05:10 02/05/17 02/06/17 02/07/17 05:59 05:59 05:59 Intake Total 1700 600 Output Total 350 Balance 1350 600 - Physical Exam Constitutional: no apparent distress, appears nourished Eyes: PERRL, anicteric sclera Ears, Nose, Mouth, Throat: moist mucous membranes, hearing normal Cardiovascular: regular rate and rhythym, no murmur, rub, or gallop Respiratory: no respiratory distress, no rales or rhonchi Gastrointestinal: normoactive bowel sounds, soft, non-tender abdomen Genitourinary: no bladder fullness, No chandler in urethra Skin: warm, normal color Musculoskeletal: full muscle strength, no muscle tenderness Neurologic: AAOx3, sensation intact bilaterally Psychiatric: interacting appropriately ICD10 Worksheet Patient Problems: Problems Problem Status Onset Abrasions of multiple sites Acute Fall from standing Acute Intracranial hemorrhage Acute Tenderness of neck Acute Urinary retention Acute Diverticulitis large intestine Acute History of West Nile virus (WNV) infection Acute Truncal ataxia Acute
[2017-02-06] MEDS: GABAPENTIN 300 MG CAP PO SCH (20:16)
[2017-02-07] MEDS: traMADol 50 MG TAB PO PRN ×4 (05:34→23:45)
--- NOTE | 2017-02-07 08:33 | SOAPPROG ---
SOAP Progress Note Assessment/Plan: Assessment: Plan: Subjective: vss,af no new comploaints, othe rthan headache and some dizzyness walking. access: post concussive and sah bleed headache. plan: rehab placement likely wednesday. Objective: Vital Signs Temp Pulse Resp BP Pulse Ox 37.1 C 56 L 16 162/86 H 94 02/06/17 23:50 02/06/17 23:50 02/06/17 23:50 02/06/17 23:50 02/06/17 23:50 Laboratory Results 02/04/17 05:10 02/04/17 05:10 02/06/17 02/07/17 02/08/17 05:59 05:59 05:59 Intake Total 600 1200 Balance 600 1200 ICD10 Worksheet Patient Problems: Problems Problem Status Onset Abrasions of multiple sites Acute Fall from standing Acute Intracranial hemorrhage Acute Tenderness of neck Acute Urinary retention Acute Diverticulitis large intestine Acute History of West Nile virus (WNV) infection Acute Truncal ataxia Acute
[2017-02-07] MEDS: ACETAMINOPHEN 325 MG TAB PO PRN ×2 (08:58→14:52)
[2017-02-07] MEDS: VALSARTAN 160 MG TAB PO SCH (08:59)
[2017-02-07] MEDS: PANTOPRAZOLE SODIUM 40 MG TAB PO SCH (08:59)
[2017-02-07] MEDS: FENOFIBRATE 145 MG TAB PO SCH (08:59)
[2017-02-07] MEDS: HYDROCHLOROTHIAZIDE 12.5 MG CAP PO SCH (08:59)
[2017-02-07] MEDS: BACITRACIN OINTMENT 1 PACKET TP SCH (09:04)
[2017-02-07] MEDS: METHYL FOLATE PO SCH (09:04)
[2017-02-07] MEDS: Mirabegron [Myrbetriq] 50 MG PO SCH (09:04)
--- NOTE | 2017-02-07 14:39 | NEUSURGPN ---
Assessment/Plan: A: 61 yo male with MMP and hx of resection of oligodendroglioma grade III by Dr. Kaufman. SP fall from standing with small frontal sontusions, falcine SDH, and tSAH. P: -Neuro- Stable overall. Mild headache, no increase from yesterday. Will monitor today and hold on any repeat imaging at this time -MRI brain shows SAH/SDH but no tumor recurrence -MRI C-spine shows no fx or ligamentous injury -PT/OT -No more scans unless he has change in neuro scan -Please notify NS with any change in neuro/motor exam. Okay to discharge to from a medicine prospective. -Discussed with Dr. Kaufman Subjective: mild headache Objective: NAD CN II-XII grossly intact. A&Ox3 MAEx4 5/5 and equal in BUE and BLE. - Physician Discussed Patient with : Mandeep Neurosurgery Physical Exam - Vitals, I&O, Labs I and O 02/06/17 02/07/17 02/08/17 05:59 05:59 05:59 Intake Total 600 1200 Balance 600 1200 Intake: Oral (ml) 600 1200 Other: Intake Quantity Yes Yes Sufficient Number of Voids Toilet 1 1 1 Bladder Scan Volume (ml) Incontinence 107 Toilet 189 185 Post Void Residual Scan Volume (ml) Toilet 365 Vital Signs Temp Pulse Resp BP Pulse Ox 36.5 C 59 L 12 150/89 H 92 02/07/17 08:00 02/07/17 08:00 02/07/17 08:00 02/07/17 08:00 02/07/17 08:00 Laboratory Results 02/04/17 05:10 02/04/17 05:10 ICD10 Worksheet Patient Problems: Problems Problem Status Onset Abrasions of multiple sites Acute Fall from standing Acute Intracranial hemorrhage Acute Tenderness of neck Acute Urinary retention Acute Diverticulitis large intestine Acute History of West Nile virus (WNV) infection Acute Truncal ataxia Acute
--- NOTE | 2017-02-07 14:57 | HOSPPROG ---
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 typically takes excedrin but reluctant to use given that it contains aspirin Oligodendroglioma s/p resection -no change by MRI Leukocytosis - improving -no evidence for infection Metabolic encephalopathy -suspect due to fatigue from [place] -now back to baseline Dispo - accepted at inpatient rehab - Wednesday proph: hold lmwh given SAH Subjective: case d/w dr richey Objective: Vital Signs Temp Pulse Resp BP Pulse Ox 36.5 C 59 L 12 150/89 H 92 02/07/17 08:00 02/07/17 08:00 02/07/17 08:00 02/07/17 08:00 02/07/17 08:00 Laboratory Results 02/04/17 05:10 02/04/17 05:10 02/06/17 02/07/17 02/08/17 05:59 05:59 05:59 Intake Total 600 1200 Balance 600 1200 - Physical Exam Constitutional: no apparent distress, appears nourished Eyes: PERRL, anicteric sclera Ears, Nose, Mouth, Throat: moist mucous membranes, hearing normal Cardiovascular: regular rate and rhythym, no murmur, rub, or gallop Respiratory: no respiratory distress, no rales or rhonchi Gastrointestinal: normoactive bowel sounds, soft, non-tender abdomen, no palpable masses Genitourinary: no bladder fullness, No chandler in urethra Skin: warm Musculoskeletal: full muscle strength, no muscle tenderness Neurologic: AAOx3 ICD10 Worksheet Patient Problems: Problems Problem Status Onset Abrasions of multiple sites Acute Fall from standing Acute Intracranial hemorrhage Acute Tenderness of neck Acute Urinary retention Acute Diverticulitis large intestine Acute History of West Nile virus (WNV) infection Acute Truncal ataxia Acute
[2017-02-07] MEDS: ACETAMINOPHEN 500 MG TAB PO SCH ×2 (15:01→20:52)
[2017-02-07] MEDS ORDERED: POLYETHYLENE GLYCOL 3350 17 GM PKT PO PRN (15:47)
[2017-02-07] MEDS ORDERED: BISACODYL 10 MG SUPP PR PRN (15:47)
[2017-02-07] MEDS ORDERED: MAGNESIUM HYDROXIDE 30 ML UDCUP PO PRN (15:47)
[2017-02-07] MEDS ORDERED: LACTULOSE 20 GM/30 ML UDCUP PO PRN (15:47)
[2017-02-07] MEDS: ESCITALOPRAM OXALATE 10 MG TAB PO SCH (17:15)
[2017-02-07] MEDS: SENNOSIDES/DOCUSATE SODIUM TAB PO SCH (20:53)
[2017-02-07] MEDS: GABAPENTIN 300 MG CAP PO SCH (20:53)
[2017-02-08] MEDS: ACETAMINOPHEN 500 MG TAB PO SCH (05:17)
--- NOTE | 2017-02-08 07:16 | NEUSURGPN ---
Assessment/Plan: Assessment: 61 yo male with MMP and hx of resection of oligodendroglioma grade III by Dr. Kaufman. Pt is s/p fall from standing with small frontal contusions, falcine SDH, and tSAH Plan: -Neuro- stable overall. Mild headache that pt states is better from yesterday. Will continue to monitor today and hold on any repeat imaging at this time as well -MRI brain shows SAH/SDH but no tumor recurrence-Pt aware of this finding -MRI C-spine shows no fx or ligamentous injury -PT/OT-CPM -No more scans unless he has changes in neuro status -Please notify NS with any change in neuro/motor exam. Okay to discharge to from a medicine prospective -plan for dc to rehab tomorrow is the reported plan-will confirm with case management -Discussed with Dr. Kaufman Subjective: Awake and alert. NAD. Eating/drinking and voiding. No f/c/n/v/d. Objective: Awake and alert. AAO x 3 PERRLA/EOMI no droop CN II-XII grossly intact MAEx4 5/5 and equal in BUE and BLE Neuro Check Frequency: per routine Urinary Catheter in Place: No - Physician Discussed Patient with : Mandeep Neurosurgery Physical Exam - Vitals, I&O, Labs I and O 02/07/17 02/08/17 02/09/17 05:59 05:59 05:59 Intake Total 1200 1000 Output Total 925 Balance 1200 75 Intake: Oral (ml) 1200 1000 Output: Urine (ml) 925 Toilet 925 Other: Intake Quantity Yes Yes Sufficient Number of Voids Toilet 1 1 Number of Stools Toilet 1 Bladder Scan Volume (ml) Incontinence 107 Toilet 185 0 Post Void Residual Scan Volume (ml) Toilet 157 Vital Signs Temp Pulse Resp BP Pulse Ox 36.9 C 59 L 16 153/85 H 91 L 02/07/17 23:16 02/07/17 23:16 02/07/17 23:16 02/07/17 23:16 02/07/17 23:16 Laboratory Results 02/04/17 05:10 02/04/17 05:10 ICD10 Worksheet Patient Problems: Problems Problem Status Onset Abrasions of multiple sites Acute Fall from standing Acute Intracranial hemorrhage Acute Tenderness of neck Acute Urinary retention Acute Diverticulitis large intestine Acute History of West Nile virus (WNV) infection Acute Truncal ataxia Acute
[2017-02-08 07:44] VITALS: BP 164/88; PULSE 55; RESP 19; TEMP 97.4; O2SAT 92
[2017-02-08] MEDS: traMADol 50 MG TAB PO PRN (08:01)
[2017-02-08] MEDS: PANTOPRAZOLE SODIUM 40 MG TAB PO SCH (08:03)
[2017-02-08] MEDS: ESCITALOPRAM OXALATE 10 MG TAB PO SCH (08:03)
[2017-02-08] MEDS: HYDROCHLOROTHIAZIDE 12.5 MG CAP PO SCH (08:03)
[2017-02-08] MEDS: VALSARTAN 160 MG TAB PO SCH (08:04)
[2017-02-08] MEDS: FENOFIBRATE 145 MG TAB PO SCH (08:05)
[2017-02-08] MEDS: Mirabegron [Myrbetriq] 50 MG PO SCH (08:06)
[2017-02-08] MEDS: METHYL FOLATE PO SCH (08:07)
[2017-02-08] MEDS: SENNOSIDES/DOCUSATE SODIUM TAB PO SCH (08:07)
[2017-02-08] MEDS: BACITRACIN OINTMENT 1 PACKET TP SCH (08:13)
--- NOTE | 2017-02-08 09:26 | TRAUMAPN ---
Assessment/Plan: 61yo M s/p chronic falls c SAH/SDH (stable) - no new changes since last examination - TANG appears improved from previous - Dispo: Planning tx to Inpt rehab tomorrow. Will touch base with CM today to make sure there is still availability Subjective: Resting comfortably, no complaints Objective: Vital Signs Temp Pulse Resp BP Pulse Ox 36.3 C 55 L 19 164/88 H 92 02/08/17 07:38 02/08/17 07:38 02/08/17 07:38 02/08/17 08:04 02/08/17 07:38 Laboratory Results 02/04/17 05:10 02/04/17 05:10 02/07/17 02/08/17 02/09/17 05:59 05:59 05:59 Intake Total 1200 1000 Output Total 925 Balance 1200 75 - C-Spine Clearance Cervical Spine Cleared: No
--- NOTE | 2017-02-08 12:47 | HOSPPROG ---
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 typically takes excedrin but reluctant to use given that it contains aspirin Oligodendroglioma s/p resection -no change by MRI Leukocytosis - improving -no evidence for infection Metabolic encephalopathy -suspect due to fatigue from [place] walking [place] -now back to baseline Dispo - accepted at inpatient rehab - Wednesday proph: hold lmwh given SAH dispo: to inpt rehab today > 30 minutes Subjective: has bed at inpatient rehab. had bm Objective: Vital Signs Temp Pulse Resp BP Pulse Ox 36.3 C 55 L 19 164/88 H 92 02/08/17 07:38 02/08/17 07:38 02/08/17 07:38 02/08/17 08:04 02/08/17 07:38 Laboratory Results 02/04/17 05:10 02/04/17 05:10 02/07/17 02/08/17 02/09/17 05:59 05:59 05:59 Intake Total 1200 1000 540 Output Total 925 Balance 1200 75 540 - Physical Exam Constitutional: no apparent distress, appears nourished Eyes: PERRL, anicteric sclera Ears, Nose, Mouth, Throat: moist mucous membranes, hearing normal Cardiovascular: regular rate and rhythym, no murmur, rub, or gallop Respiratory: no respiratory distress, no rales or rhonchi Gastrointestinal: normoactive bowel sounds, soft, non-tender abdomen Genitourinary: no bladder fullness, No chandler in urethra Skin: warm, normal color Musculoskeletal: full muscle strength, no muscle tenderness Neurologic: AAOx3 ICD10 Worksheet Patient Problems: Problems Problem Status Onset Abrasions of multiple sites Acute Fall from standing Acute Intracranial hemorrhage Acute Tenderness of neck Acute Urinary retention Acute Diverticulitis large intestine Acute History of West Nile virus (WNV) infection Acute Truncal ataxia Acute
--- NOTE | 2017-02-08 12:57 | ASMTCMCOM ---
CM Note CM Note Notes: Discharge Planning Note: [facility] Inpatient Rehab able to accept patient today, before 1500. Met with patient and family to discuss dispo, patient okay with paying for [facility] w/c transport. Spoke with [facility], able to transport at 1400 today. LVM for Kitty to alert of d/c and transport time. Discussed with MD and RN. Orders to be accessed online. CM available for any further needs. Date Signed: 02/08/2017 12:57 PM Electronically Signed By:Faye Vance RN
--- NOTE | 2017-02-08 13:42 | PDIAF ---
- Diagnosis Diagnosis: SAH Code Status: Full Code - Medication Management Discharge Medications: Medications to Continue on Transfer Gabapentin [Neurontin 300 MG (*)] 600 mg PO HS 01/18/16 [Last Taken 02/02/17] Omeprazole [Prilosec 20 mg] 40 mg PO DAILY 01/18/16 [Last Taken 02/02/17] Valsartan/Hydrochlorothiazide [Valsartan-Hctz 160-12.5 mg Tab] 1 each PO DAILY 01/18/16 [Last Taken 02/02/17] Fenofibrate [Tricor 145 mg (*)] 0.5 each PO DAILY 09/28/16 [Last Taken 02/02/17] Herbals/Supplements -Info Only 1 ea PO DAILY 09/28/16 [Last Taken Unknown] Multivitamins [Multivitamin (*)] 1 each PO DAILY 09/28/16 [Last Taken 02/02/17] Ondansetron Odt [Zofran Odt 4 mg (*)] 4 mg PO Q4HRS PRN #5 tab 09/29/16 [Last Taken Unknown] Mirabegron [Myrbetriq] 50 mg PO DAILY 02/03/17 [Last Taken 02/02/17] Acetaminophen [Tylenol ES 500 mg (*)] 1,000 mg PO Q8 tab 02/08/17 [Last Taken Unknown] Escitalopram Oxalate [Lexapro 10 MG] 10 mg PO DAILY tab 02/08/17 [Last Taken Unknown] Polyethylene Glycol 3350 [Miralax 17 gm (*)] 17 gm PO DAILY PRN pkt 02/08/17 [ Last Taken Unknown] traMADol [Ultram 50 mg (*)] 50 mg PO Q6HRS PRN tab 02/08/17 [Last Taken Unknown ] Discharge Medications: Refer to the Discharge Home Medication list for PRN reason. - Orders Services needed: Registered Nurse, Physical Therapy, Occupational Therapy, Speech Language Pathologist Diet Texture: Regular Texture Diet, Thin Liquids, Meds Whole w/Liquids, Meds Whole in Puree - Follow Up Care Current Providers and Referrals: Patient,NotPresent [Unknown] - As per Instructions
--- NOTE | 2017-02-08 14:39 | ASDISCHSUM ---
Discharge Information Plan Status:Inpatient Rehab Medically Cleared to Leave: Discharge Date:02/08/2017 02:00 PM CM D/C Disposition:[facility] ADT D/C Disposition:BDWIP Projected Discharge Date:02/06/2017 11:00 AM Transportation at D/C:Wheelchair Van Discharge Delay Reason: Follow-Up Date:02/06/2017 11:00 AM Discharge Slot: Final Diagnosis: Placement Information Referral Type:Rehabilitation Hospital Referral ID:[id number] Provider Name:[facility] Inpatient [facility] Address 1:[address] Phone Number: Address 2: Fax Number: [facility]:[place] Selection Factors: State:[place] Patient Contact Information Contact Name:DESHAWNBOOGIE Relationship: Address:[facility] [address] [facility] [place] Phone: State/Zip Code:[place] [phone] Email: Financial Information Financial Class: Primary Plan Desc:MEDICARE INPATIENT Primary Plan Number:[id number] Secondary Plan Desc:[facility] [facility] Secondary Plan Number:[id number] Assessment Information [facility] CM Progress Note CM Note CM Note Notes: Chart reviewed. Patient with trauma to head post fall. Hx of craniotomy in past. Per PT inpatient rehab probable good option for pt on discharge.. Call to Kitty. She is reviewing patient today. DANIKA RADHA to follow. Date Signed: 02/03/2017 02:13 PM Electronically Signed By:[place] RN [facility] CM Progress Note CM Note CM Note Notes: Chart reviewed. Spoke with Kitty regarding inpatient bed. Unable to accept until next Wednesday if indicated. Referral to be made to [facility] if therapies indicate that is appropriate. CM to follow. Date Signed: 02/04/2017 12:32 PM Electronically Signed By:[place] RN [facility] CM Progress Note CM Note CM Note Notes: Referral sent to [facility] inpatient rehab, they started an assessment on pt and will pause assessment because pt and are adamant pt will go to [facility] inpatient rehab. CM would need to contact Halina Braswell to resume assessment if needed for [facility]. [facility] inpatient rehab bed likely not available until Wednesday02/09/17. CM to follow. Date Signed: 02/05/2017 04:34 PM Electronically Signed By:BILL Jimenez [facility] CM Progress Note CM Note CM Note Notes: Discharge Planning Note: [facility] Inpatient Rehab able to accept patient today, before 1500. Met with patient and family to discuss dispo, patient okay with paying for [facility] w/c transport. Spoke with [facility], able to transport at 1400 today. LVM for Kitty to alert of d/c and transport time. Discussed with MD and RN. Orders to be accessed online. CM available for any further needs. Date Signed: 02/08/2017 12:57 PM Electronically Signed By:Faye Vance RN Intervention Information Intervention Type:*IM-Signed Date of Service:02/08/2017 01:54 PM Patient Type:Inpatient Staff Member:Aurora Echols Hours: Discipline: Severity: Comment:
--- NOTE | 2017-02-08 14:45 | GDS ---
[f rep st] DISCHARGE SUMMARY DISCHARGE DIAGNOSES: 1. Traumatic subdural hematoma. 2. Traumatic subarachnoid hemorrhage, intraparenchymal hemorrhage. 3. History of West Nile virus encephalitis with resulting residual left-sided weakness. 4. Migraines. 5. Benign prostatic hyperplasia. 6. History of oligodendroglioma, status post resection in the remote past. 7. Hypertension. HISTORY OF PRESENT ILLNESS: Please see admission history and physical by Dr. Rocky Goodson, as well as consultation by Dr. Kathryn Collins. HOSPITAL COURSE: Patient was admitted to the hospital with fall resulting in subdural. He was follo wed by Trauma and Neurosurgery. No neurosurgical intervention was necessary. The patient did well f rom a medical perspective without intercurrent illnesses. He is discharged to inpatient rehab at [facility] for further ongoing rehabilitation. /[id number]/MODL
== END 2017-02-08 14:00 | DRG 84 ==
LOC: F2N 02-03 00:32 → F3N 02-04 12:18
PROVIDERS: ADMIT Surgery; ATTEND Surgery
DX: S06.5X9A Traumatic subdural hemorrhage with loss of consciousness of unspecified duration, initial encounter (principal); S06.6X9A Traumatic subarachnoid hemorrhage with loss of consciousness of unspecified duration, initial encounter; Y92.009 Unspecified place in unspecified non-institutional (private) residence as the place of occurrence of the external cause; W19.XXXA Unspecified fall, initial encounter; B94.1 Sequelae of viral encephalitis; G31.84 Mild cognitive impairment of uncertain or unknown etiology; R27.0 Ataxia, unspecified; Z85.841 Personal history of malignant neoplasm of brain; Z92.3 Personal history of irradiation; Z87.442 Personal history of urinary calculi; K21.9 Gastro-esophageal reflux disease without esophagitis; I10 Essential (primary) hypertension; N40.0 Benign prostatic hyperplasia without lower urinary tract symptoms; G43.909 Migraine, unspecified, not intractable, without status migrainosus
CPT/HCPCS: 92507-GN; 92523-GN; 92526-GN; 92610-GN; 96374; 97110-GO; 97112-GP; 97116-GP; 97162-GP; 97166-GO; 97530-GP; 97535-GO; A9585; G8978-GP-CL; G8979-GP-CJ; G8987-GO-CL; G8988-GO-CI; G8996-GN-CK; G8997-GN-CH; G8998-GN-CH; G9165-GN-CI; G9166-GN-CI; G9167-GN-CI; J1170; J1953; J2405; J3010

== ENCOUNTER 2017-02-08 14:26 | Inpatient (IN) | payer OTHER ==
[2017-02-08] MEDS ORDERED: POLYETHYLENE GLYCOL 3350 17 GM PKT PO PRN (15:33)
[2017-02-08] MEDS ORDERED: ONDANSETRON DISINTEGRATING 4 MG TAB PO PRN (15:33)
[2017-02-08] MEDS: traMADol 50 MG TAB PO PRN (15:57)
--- NOTE | 2017-02-08 16:56 | GHP ---
f rep st HISTORY AND PHYSICAL POST ADMISSION PHYSICIAN EVALUATION AND REHABILITATION TREATMENT PLAN DATE OF ADMISSION: 02/08/2017 DATE OF EVALUATION: 02/08/2017. TIME OF EVALUATION: 1520. REFERRING FACILITY: [facility]. IMPAIRMENT GROUP: 2.22. DATE OF ONSET: 02/02/2017. REFERRING PHYSICIAN: Dr. Goodson. CONSULTING PHYSICIANS: He was seen in consultation by the Hospitalist Service Dr. Collins, Infectious Disease Dr. Bar, Neurosurgery Dr. Kaufman, and Pulmonary Critical Care Dr. Randhawa. REHABLITATION DIAGNOSIS: Debility status post traumatic brain injury. ETIOLOGIC DIAGNOSIS: Traumatic, closed injury. DATE OF SURGERY: There was no surgery. HISTORY OF PRESENT ILLNESS: This patient came to [facility] on , brought in by his . He had multiple falls in the airport parking lot while looking for his car after having dropped his off for a flight. She did not take the flight as she had received multiple text messages from her . She was able to drive him to the emergency department rather than using an ambulance. He had a head CT which showed acute posttraumatic subdural, subarachnoid, and parenchymal hemorrhage along the interhemispheric falx anteriorly and the frontal lobes bilaterally. He had serial imaging which did not show expansion or any risk for brain herniation. 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 The MRI did not show any recurrent tumor. His hospital course was otherwise uncomplicated. He was participating in therapies and appropriate for inpatient rehabilitation. Other studies and labs during his stay: he had an elevated white blood cell count of 15.78 when he was admitted. Two days later, it was improving at 9.92. There was no left shift. He developed some anemia likely due to hydration and , on the , his hemoglobin was 13.2 and his hematocrit was 37.8. Serum chemistry revealed overall normal renal function and electrolytes. He had mild dehydration on admission with BUN of 24 and creatinine of 1.1. His renal function and electrolytes were normal on 02/04/2017. Urinalysis was done on , and was completely normal. He had additional CT and MRI of the C-spine , which cleared him of any sequelae of the trauma. PRECAUTIONS: He is a fall risk and has an aspiration risk. ACTIVE COMORBIDITIES: He has no active tier 1, tier 2, or tier 3 comorbidities. PAST MEDICAL HISTORY: 1. Oligodendroglioma of the brain. 2. 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 3. Transient dysphagia requiring PEG tube, subsequently discontinued. 4. Kidney stones. 5. Diverticulosis. 6. BPH. 7. Hypertension. 8. Dyslipidemia. PAST SURGICAL HISTORY: 1. Resection of oligodendroglioma in 2006. 2. TURP. 3. Hernia surgery. 4. Appendectomy. 5. Strabismus surgery as a child. ALLERGIES: Listed to dutasteride and to statins. PRE-HOSPITAL MEDICATIONS: 1. Gabapentin 600 mg p.o. q.h.s. 2. Omeprazole 40 mg p.o. daily. 3. Valsartan/hydrochlorothiazide 160/12.5 mg 1 p.o. daily. 4. Fenofibrate 72.5 mg p.o. daily. 5. Methyl folate 400 mg p.o. daily. 6. Multivitamin 1 p.o. daily. 7. Ondansetron 4 mg p.o. q.4 hours p.r.n. 8. Excedrin Migraine 2 p.o. daily p.r.n. 9. Mirabegron 50 mg p.o. daily. ADMISSION MEDICATIONS: 1. Acetaminophen 1000 mg p.o. q.8 hours. 2. Escitalopram 10 mg p.o. daily. 3. Fenofibrate 72.5 mg p.o. daily. 4. Gabapentin 600 mg p.o. at bedtime. 5. Mirabegron 50 mg p.o. daily. 6. Methyl folate 400 mg p.o. daily. 7. Multivitamin 1 p.o. daily. 8. Ondansetron 4 mg p.o. q.4 hours p.r.n. 9. Polyethylene glycol 17 g p.o. daily. 10. Tramadol 50 mg p.o. q.6 hours. 11. Omeprazole 40 mg p.o. daily. 12. Valsartan/hydrochlorothiazide 160/12.5 mg p.o. daily. FAMILY HISTORY: Noncontributory. PSYCHOSOCIAL HISTORY: He is . He lives with his . 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 He does not use alcohol or smoke cigarettes. There is a local son who is involved. REVIEW OF SYSTEMS: He currently complains of a headache. It is bilateral frontal. It is not throbbing. He has slight nausea. He does not have vision changes with it. He otherwise denies pain. He has a good appetite. He has no chest pain or palpitations. He has no cough or dyspnea. There are no fevers or chills. He has no constipation, diarrhea, or vomiting. He has no joint pain or joint swelling. He has several abrasions on his right arm, but otherwise has no complaints regarding his skin, and otherwise a 10-point review of systems is negative. PHYSICAL EXAM: VITAL SIGNS: Blood pressure is 134/81, heart rate is 54, respiratory rate is 15, oxygen saturation is 94% on room air. His weight is 72.7 kg for a body mass index of 23. GENERAL: This is a well-nourished, well- developed man lying in bed, dressed in street clothes. Cooperative and in no acute distress. HEENT: Extraocular movements are overall intact. He has a deficit to accommodation on the right eye and seems to have asymmetric saccades between the right and left eye. Pupils are equal, round, and reactive to light. Mucous membranes are moist. Dentition is in good condition. He has a mildly crowded airway, Mallampati class 2. NECK: Supple. HEART: There is a regular rate and rhythm with no murmurs, rubs, or gallops. LUNGS: Clear to auscultation bilaterally. ABDOMEN: Soft, nontender, nondistended with normoactive bowel sounds. There is a midline lower abdominal scar just to the left of the umbilicus. There is no hepatosplenomegaly. EXTREMITIES: There is no cyanosis, clubbing, or edema. Radial and dorsalis pedis pulses are 2+ bilaterally. NEUROLOGIC: He is alert and oriented x3. He is somewhat sleepy. Cranial nerves 2-12 are grossly intact but for the eye movement abnormalities described above. He has 4/5 strength in the left hand network operations lead, left biceps, and left hamstrings. Otherwise, strength is overall 5/5. Sensation is intact to light touch. Deep tendon reflexes are 2+ bilaterally at the biceps, patella, and Achilles tendon, but may be mildly hyperactive at the left biceps and right Achilles. Gait and stance were not tested. SKIN: Warm and dry with no skin breakdown noted. CURRENT LEVEL OF FUNCTION: Regarding diet feeding and swallowing, he was on a regular diet with mild dysphagia. Grooming required contact guard to minimal assist, bathing required assistance, dressing requires assistance, and toileting required contact guard to minimal assist with front wheeled walker. Regarding bladder he had urinary retention. Regarding bowel he was noted to be continent. Bed mobility was done with contact guard assist, transfers with contact guard to minimal assist using a front wheeled walker. Balance required contact guard assist. Endurance was fair. He was able to ambulate 150 feet with front wheeled walker and contact guard with voice cues to negotiate the environment. He was noted to have mild communication deficits, and mild cognitive deficits in attention, executive function, memory, problem solving and reasoning. 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 He was stabilized in the hospital and did not require surgery. He, however, has deficits to self-care and so was appropriate for transfer to inpatient rehabilitation. He will benefit from physical and occupational therapies to optimize mobility and activities of daily living and from speech and language pathology regarding swallowing, communication and cognition. He will need the care of a nurse for fall risk, bowel and bladder, skin integrity, medication administration, and medication education. He will need the care of a physician for pain management, blood pressure management, and risk for neurologic deterioration. His goal is to complete a rehab stay and then return home with his family and supportive services. For a safe discharge, it is anticipated that he will achieve independence with eating, grooming, and bed mobility; modified independence for transfers, bathing, and dressing; and ambulation with the least restrictive device. He will need to be able to be safe at home alone. He will have therapy with Physical Therapy, Occupational Therapy, and Speech and Language Pathology for 60 minutes per day per each discipline on 5-7 days of the week. His expected duration of stay is 5-7 days. It is anticipated that upon discharge he will continue to benefit from outpatient therapy including speech and language pathology and physical therapy as well as a brain injury support group. PLAN: 1. Status post traumatic brain injury with subarachnoid and subdural hemorrhages with associated debility and headaches. PT and OT to optimize mobility and activities of daily living. 2. Possible cognitive impairment to be assessed and treated per Speech and Language Pathology. 3. Pain management. He comes out of the hospital with a prescription for p.r.n. tramadol, and this will be continued at 50 mg q.6 hours. Additionally, acetaminophen has been scheduled at 1000 mg q.8 hours. He will be assessed for adequacy of pain control and medications adjusted or added as necessary. 4. Hypertension. Continue valsartan/hydrochlorothiazide. 5. Dyslipidemia. Continue fenofibrate. 6. Depression. Continue escitalopram. 7. Nausea. Continue ondansetron. 8. History of resection of right frontal oligodendroglioma and West Nile virus infection. He has some pre-existing deficits including truncal ataxia and left- sided weakness, which will also benefit from work with physical and occupational therapy. 9. BPH. Continue Mirabegron. 10. History of migraine headaches. He reports that he has benefitted from gabapentin scheduled at h.s., and this will be continued. 11. Possible history of gastroesophageal reflux disease. He is on high dose of omeprazole, which will be continued pending further discussion regarding his history and his needs. 12. Prophylaxis. He has walked 150 feet in the hospital. The hospital physicians were cautious regarding anticoagulation due to his recent intracranial hemorrhage. He will be observed for mobility and, if it is adequate, then there will be no need for pharmacologic prophylaxis. We will continue Terrell and JAN teixeira. /[id number]/MODL MTDD
[2017-02-08] MEDS: oxyCODONE IR 5 MG TAB PO PRN (19:51)
[2017-02-08] MEDS: traMADol 50 MG TAB PO SCH (20:57)
[2017-02-08] MEDS: GABAPENTIN 300 MG CAP PO SCH (20:57)
[2017-02-08] MEDS: ACETAMINOPHEN 500 MG TAB PO SCH (20:58)
[2017-02-09] MEDS: oxyCODONE IR 5 MG TAB PO PRN ×3 (02:09→15:26)
[2017-02-09] MEDS: ACETAMINOPHEN 500 MG TAB PO SCH ×3 (05:33→22:44)
[2017-02-09] MEDS: traMADol 50 MG TAB PO SCH ×3 (05:33→22:44)
[2017-02-09] MEDS: FENOFIBRATE 145 MG TAB PO SCH (08:58)
[2017-02-09] MEDS: ESCITALOPRAM OXALATE 10 MG TAB PO SCH (08:58)
[2017-02-09] MEDS ORDERED: NON-FORMULARY NEW DRUG (Mirabegron [Myrbetriq] 50 MG) PO SCH (09:00)
[2017-02-09] MEDS ORDERED: (Mirabegron [Myrbetriq] 50 MG) PO SCH (09:00)
[2017-02-09] MEDS ORDERED: NON-FORMULARY NEW DRUG (Omeprazole [Prilosec 20 Mg] 40 MG) PO SCH (09:00)
[2017-02-09] MEDS ORDERED: [UNRECOGNIZED DRUG - OTHER] PO SCH (09:00)
[2017-02-09] MEDS ORDERED: HYDROCHLOROTHIAZIDE PO SCH (09:00)
[2017-02-09] MEDS: HYDROCHLOROTHIAZIDE 12.5 MG CAP PO SCH (09:00)
[2017-02-09] MEDS ORDERED: FOLATE 400 MCG PO SCH (09:00)
[2017-02-09] MEDS: MULTIVITAMINS 1 EACH TAB PO SCH (09:00)
[2017-02-09] MEDS ORDERED: VALSARTAN PO SCH (09:00)
[2017-02-09] MEDS ORDERED: Herbals/Supplements -Info Only PO SCH (09:00)
[2017-02-09] MEDS: VALSARTAN 160 MG TAB PO SCH (09:01)
[2017-02-09] MEDS: OMEPRAZOLE 40 MG PO SCH (09:02)
[2017-02-09] MEDS: FOLATE 400 MCG PO SCH (09:03)
[2017-02-09] MEDS: (Mirabegron [Myrbetriq] 50 MG) PO SCH (09:04)
[2017-02-09] MEDS: traMADol 50 MG TAB PO PRN ×2 (09:23→18:22)
[2017-02-09] MEDS ORDERED: CALCIUM CARBONATE 500 MG CHEWABLE TAB PO PRN (11:24)
--- NOTE | 2017-02-09 11:43 | SOAPPROG ---
SOAP Progress Note Assessment/Plan: Assessment: 61-year-old man with history of excision of right frontal tumor in 2006 and West Nile virus encephalitis who suffered a fall on 02/02/2017 with bifrontal SDH and SAH: * Status post traumatic brain injury with subarachnoid and subdural hemorrhages with associated debility and headaches. PT and OT to optimize mobility and activities of daily living. * Possible cognitive impairment to be assessed and treated per Speech and Language Pathology. * Pain management. On scheduled. tramadol 50 mg q.8 hours and p.r.n. tramadol 50 mg q.6 hours. Additionally, acetaminophen has been scheduled at 1000 mg q.8 hours. These did not control his headaches yesterday evening 02/08/2017 or this morning so oxycodone has been added. Offer oxycodone 30 minutes before therapy sessions. Add gabapentin in the morning and mid day as headache preventive. Trial of massage regarding neck pain. * Hypertension. Continue valsartan/hydrochlorothiazide. Recent elevated blood pressures may be due to headache pain. Consider use of propranolol as a headache preventive. * Dyslipidemia. Continue fenofibrate. * Depression. Continue escitalopram. * Nausea. Continue ondansetron. Has not used it in the past 24 hours. * History of resection of right frontal oligodendroglioma and West Nile virus infection. He has some pre-existing deficits including truncal ataxia and left- sided weakness, which will also benefit from work with physical and occupational therapy. * BPH. Continue Mirabegron. * History of migraine headaches. He reports that he has benefitted from gabapentin scheduled at [facility] and this will be continued. * Possible history of gastroesophageal reflux disease. He is on high dose of omeprazole, which will be continued pending further discussion regarding his history and his needs. * Prophylaxis. He has walked 150 feet in the hospital. The hospital physicians were cautious regarding anticoagulation due to his recent intracranial hemorrhage. He will be observed for mobility and, if it is adequate, then there will be no need for pharmacologic prophylaxis. We will continue SCDs and JAN teixeira. 02/09/17 16:32 Subjective: Headaches last night and this morning. Oxycodone was started. Right now he does not have a headache. He says the headaches are sometime similar to the migraines that he has had in the past but not always. He also complains of back pain when he is doing certain movements. Objective: Vital Signs Temp Pulse Resp BP Pulse Ox 36.4 C 51 L 16 140/80 H 94 02/09/17 06:30 02/09/17 06:30 02/09/17 06:30 02/09/17 09:01 02/09/17 06:30 02/08/17 02/09/17 02/10/17 05:59 05:59 05:59 Intake Total 200 518 Output Total 700 Balance -500 518 Physical Exam - Physical Exam General Appearance: WD/WN, alert, no apparent distress Respiratory: normal breath sounds, No crackles, No rhonchi, No wheezing Cardiac/Chest: regular rate, rhythm, No diastolic murmur, No systolic murmur Back: Other (Nontender) Skin: normal color, warm/dry Neuro/Psych: alert, normal mood/affect, oriented x 3 ICD10 Worksheet Patient Problems: Problems Problem Status Onset Abrasions of multiple sites Acute Diverticulitis large intestine Acute Fall from standing Acute History of West Nile virus (WNV) infection Acute Intracranial hemorrhage Acute Tenderness of neck Acute Truncal ataxia Acute Urinary retention Acute
--- NOTE | 2017-02-09 14:30 | PDOREHIP ---
Admission [facility] - Admission - 3 Day Assessment Period Admission Date/Day 1: 02/08/17 Day 2: 02/09/17 Day 3: 02/10/17 - Active Diagnoses Comorbidities and Co-existing Conditions at Admission: 37080. None of the Above - Skin Conditions Unhealed Pressure Ulcer (1 or more/Stage 1 or >)-Admission: 0. No
[2017-02-09] MEDS: SENNOSIDES 1 TAB PO SCH (20:37)
[2017-02-09] MEDS: GABAPENTIN 300 MG CAP PO SCH (20:37)
[2017-02-10] MEDS: ACETAMINOPHEN 500 MG TAB PO SCH ×3 (05:30→22:09)
[2017-02-10] MEDS: traMADol 50 MG TAB PO SCH ×3 (05:31→21:52)
[2017-02-10] MEDS: GABAPENTIN 300 MG CAP PO SCH ×2 (09:15→21:50)
[2017-02-10] MEDS: VALSARTAN 160 MG TAB PO SCH (09:15)
[2017-02-10] MEDS: OMEPRAZOLE 40 MG PO SCH (09:16)
[2017-02-10] MEDS: FENOFIBRATE 145 MG TAB PO SCH (09:16)
[2017-02-10] MEDS: ESCITALOPRAM OXALATE 10 MG TAB PO SCH (09:16)
[2017-02-10] MEDS: HYDROCHLOROTHIAZIDE 12.5 MG CAP PO SCH (09:16)
[2017-02-10] MEDS: MULTIVITAMINS 1 EACH TAB PO SCH (09:17)
[2017-02-10] MEDS: (Mirabegron [Myrbetriq] 50 MG) PO SCH (09:17)
[2017-02-10] MEDS: FOLATE 400 MCG PO SCH (09:18)
[2017-02-10] MEDS: SENNOSIDES 1 TAB PO SCH ×2 (09:25→21:50)
[2017-02-10] MEDS ORDERED: HYDROCHLOROTHIAZIDE 12.5 MG CAP PO SCH (09:27)
[2017-02-10] MEDS: oxyCODONE IR 5 MG TAB PO PRN ×2 (10:12→16:10)
--- NOTE | 2017-02-10 13:16 | SOAPPROG ---
SOAP Progress Note Assessment/Plan: Assessment: 61-year-old man with history of excision of right frontal tumor in 2006 and West Nile virus encephalitis who suffered a fall on 02/02/2017 with bifrontal SDH and SAH: * Status post traumatic brain injury with subarachnoid and subdural hemorrhages with associated debility and headaches. Initial functional independence measure 80. Bed mobility, transfer and ambulation with contact guard to minimal assist. Grooming and hygiene seated with standby assist. Upper body dressing setup/standby assist. Lower body dressing with minimal assistance shower transfer with contact guard. PT and OT to optimize mobility and activities of daily living. * Possible cognitive impairment to be assessed and treated per Speech and Language Pathology. Concerned regarding possible auditory comprehension deficit ; he also is hard of hearing. will bring in audiology report. * Pain management. On scheduled. tramadol 50 mg q.8 hours and p.r.n. tramadol 50 mg q.6 hours. Additionally, acetaminophen has been scheduled at 1000 mg q.8 hours. These did not control his headaches yesterday evening 02/08/2017 or this morning so oxycodone has been added. Offer oxycodone 30 minutes before therapy sessions. Headaches improved with gabapentin increased to three times daily from starting 02/09/2017. * Hypertension. Continue valsartan/hydrochlorothiazide. Increase hydrochlorothiazide from 12.5 mg q.day to 25 mg q.day starting 02/11/2017. * Dyslipidemia. Continue fenofibrate. * Depression. Continue escitalopram. * Nausea. Continue ondansetron p.r.n. Has not used it in the past 24 hours. * History of resection of right frontal oligodendroglioma and West Nile virus infection. He has some pre-existing deficits including truncal ataxia and left- sided weakness, which will also benefit from work with physical and occupational therapy. * BPH. Continue Mirabegron. * History of migraine headaches. He reports that he has benefitted from gabapentin scheduled at [facility] and this will be continued. * Possible history of gastroesophageal reflux disease. He is on high dose of omeprazole, which will be continued pending further discussion regarding his history and his needs. * Prophylaxis. He has walked 150 feet in the hospital. The hospital physicians were cautious regarding anticoagulation due to his recent intracranial hemorrhage. He will be observed for mobility and, if it is adequate, then there will be no need for pharmacologic prophylaxis. We will continue SCDs and JAN hose. Attended staffing, 15 minutes. Discussed with case management, dietitian, nursing, PT, OT, FIREBRICK LAYER. Rehabilitation is complicated by pre-existing deficits due to history of West Nile virus encephalitis and right frontal lobe tumor resection. Set discharge date for 03/03/2017. 02/10/17 13:16 Subjective: Complains of back pain sometimes when he arises from seated. Otherwise not in pain. Slept well. No cough, dyspnea, fevers, chills. Objective: Vital Signs Temp Pulse Resp BP Pulse Ox 36.6 C 58 L 16 154/84 H 92 02/10/17 07:22 02/10/17 07:22 02/10/17 07:22 02/10/17 09:16 02/10/17 07:22 02/09/17 02/10/17 02/11/17 05:59 05:59 05:59 Intake Total 200 1018 243 Output Total 700 550 Balance -500 468 243 - Time Spent With Patient Time Spent With Patient: Greater than 35 minutes floor time today, including more than 50% of time in coordination of care during staffing meeting, and counseling patient. Physical Exam - Physical Exam General Appearance: WD/WN, alert, no apparent distress Respiratory: normal breath sounds, No crackles, No rhonchi, No wheezing Cardiac/Chest: regular rate, rhythm, No edema Skin: normal color, warm/dry Neuro/Psych: alert, normal mood/affect, oriented x 3, other (No bradykinesia, normal blink rate. Minimal cogwheel rigidity but also gagging Caleb right upper extremity no rigidity left upper extremity. Gait is narrow based with very short steps and some shuffling using a front wheeled walker.) ICD10 Worksheet Patient Problems: Problems Problem Status Onset Abrasions of multiple sites Acute Diverticulitis large intestine Acute Fall from standing Acute History of West Nile virus (WNV) infection Acute Intracranial hemorrhage Acute Tenderness of neck Acute Truncal ataxia Acute Urinary retention Acute
[2017-02-10] MEDS ORDERED: MECLIZINE HCL 25 MG TAB PO PRN (17:09)
[2017-02-10 19:54] VITALS: TEMP 97.7
[2017-02-11] MEDS: oxyCODONE IR 5 MG TAB PO PRN ×2 (01:54→07:59)
[2017-02-11] MEDS: traMADol 50 MG TAB PO PRN (04:11)
[2017-02-11] MEDS: ACETAMINOPHEN 500 MG TAB PO SCH (05:54)
[2017-02-11 07:05] VITALS: BP 134/90; PULSE 63; RESP 17; O2SAT 95
[2017-02-11] MEDS: traMADol 50 MG TAB PO SCH (07:17)
[2017-02-11] MEDS: (Mirabegron [Myrbetriq] 50 MG) PO SCH (09:04)
[2017-02-11] MEDS: OMEPRAZOLE 40 MG PO SCH (09:04)
[2017-02-11] MEDS: ESCITALOPRAM OXALATE 10 MG TAB PO SCH (09:04)
[2017-02-11] MEDS: FOLATE 400 MCG PO SCH (09:04)
[2017-02-11] MEDS: VALSARTAN 160 MG TAB PO SCH (09:05)
[2017-02-11] MEDS: FENOFIBRATE 145 MG TAB PO SCH (09:06)
[2017-02-11] MEDS: MULTIVITAMINS 1 EACH TAB PO SCH (09:06)
[2017-02-11] MEDS: SENNOSIDES 1 TAB PO SCH (09:06)
[2017-02-11] MEDS: GABAPENTIN 300 MG CAP PO SCH (09:06)
[2017-02-11 12:25] LABS: HEMATOCRIT 43.9 % (40.0-51.0); HEMOGLOBIN 15.6 g/dL (13.7-17.5); MEAN CELL HEMOGLOBIN 30.4 pg (27.9-34.1); MEAN CELL HEMOGLOBIN CONCENTR. 35.5 g/dL (32.4-36.7); MEAN CELL VOLUME 85.6 fL (81.5-99.8); RED BLOOD CELL COUNT 5.13 10^6/uL (4.40-6.38); RED CELL DISTRIBUTION WIDTH 12.6 % (11.5-15.2)
[2017-02-11 12:32] LABS: INR 1.03 (0.83-1.16); PROTIME(PATIENT) 13.4 SEC (12.0-15.0)
[2017-02-11 12:33] LABS: APTT 28.6 SEC (23.0-38.0)
--- NOTE | 2017-02-11 12:43 | SOAPPROG ---
SOAP Progress Note Assessment/Plan: Assessment: Cross cover note 61-year-old male with history of right frontal tumor excision in 2006 and history of West Nile encephalitis with bifrontal subdural hematoma and subarachnoid hemorrhage on 01/23/2017 with acute mental status changes today, decreased participation and performance in therapy, at greatly decreased communication. He appeared alert but much less interactive. He had facial droop on the right side that is consistent with prior exams on discussion with Dr. Sheridan and other staff. Decision was made to evaluate for high probability of intracranial hemorrhage, stat head CT at [facility]. I alerted the emergency department physician that the patient will likely be coming and will need further assessment given the severity of his mental status changes. Appears less likely to be due to any sort of medication as he has had a lower dose of opioids lately. Also appears not consistent with hypoglycemia. Other labs pending. Plan: 02/11/17 12:40 Subjective: Chief complaint: Mental status changes Notified by the staff that the patient was not participating as well in therapies and less communicative than he was in the morning. Patient could not give clear yes no answers to questions about the review of systems. Communication was extremely limited. No recent falls, no other acute events that I was aware of. History of excision of a right frontal tumor 2006, encephalitis from West Nile virus, and recent fall in 02/02/2017 with bifrontal subdural and subarachnoid hemorrhage. Objective: Vital Signs Temp Pulse Resp BP Pulse Ox 36.5 C 63 17 134/90 H 95 02/11/17 07:03 02/11/17 07:03 02/11/17 07:03 02/11/17 07:03 02/11/17 07:03 Laboratory Results 02/11/17 11:40 02/10/17 02/11/17 02/12/17 05:59 05:59 05:59 Intake Total 1018 883 120 Output Total 550 1200 350 Balance 468 -317 -230 PT 13.4 SEC (12.0-15.0) 02/11/17 11:40 INR 1.03 (0.83-1.16) 02/11/17 11:40 Physical Exam - Physical Exam General Appearance: alert, no apparent distress EENT: No scleral icterus (R), No scleral icterus (L) Respiratory: lungs clear, normal breath sounds, No respiratory distress, No accessory muscle use Cardiac/Chest: normal peripheral pulses, regular rate, rhythm, No edema Abdomen: normal bowel sounds, non-tender, soft Skin: normal color, warm/dry, No cyanosis Extremities: No pedal edema, No calf tenderness, No swelling, No Lalitha's sign Neuro/Psych: alert, normal mood/affect, other (Very slowed response to questions , not clearly entering [facility] center questions accurately. Assistance level went from essentially standby assistance to moderate to maximum assistance x1 person. Could not assess for his mood.) ICD10 Worksheet Patient Problems: Problems Problem Status Onset Abrasions of multiple sites Acute Diverticulitis large intestine Acute Fall from standing Acute History of West Nile virus (WNV) infection Acute Intracranial hemorrhage Acute Tenderness of neck Acute Truncal ataxia Acute Urinary retention Acute
[2017-02-11 12:57] LABS: ANION GAP 14 mEq/L (8-16); CALCIUM 9.4 mg/dL (8.5-10.4); CARBON DIOXIDE 22 mEq/l (22-31); CHLORIDE 99 mEq/L (97-110); CREATININE 1.2 mg/dL (0.7-1.3); GLOMERULAR FILTRATION RATE > 60; GLUCOSE 96 mg/dL (70-100); MAGNESIUM 2.1 mg/dL (1.6-2.3); POTASSIUM 4.4 mEq/L (3.5-5.2); SODIUM 135 mEq/L (134-144)
--- NOTE | 2017-02-11 15:23 | GDS ---
[f rep st] DISCHARGE SUMMARY ADMITTING DIAGNOSIS: Debility, status post fall and subdural hematoma. DISCHARGE DIAGNOSIS: Debility, status post fall and subdural hematoma. OTHER DISCHARGE DIAGNOSIS: Acute mental status change. CONSULTATIONS: There were none. PROCEDURES: There were none. COMPLICATIONS: He had an acute mental status change on the day of discharge. HISTORY AND HOSPITAL COURSE: This patient was admitted from [facility] where he had been diagnosed with bifrontal subdural hematoma and subarachnoid hemorrhage on 02/02/2017 resulting from a fall. He had serial head CTs. He did not need surgery. He was otherwise medically stabilized and transferred for rehabilitation. He made a good start with rehabilitation. Headaches were an issue for which he was initially treated with tramadol, but then oxycodone was added and finally, as gabapentin had been effective for pain management at [facility]. at 600 mg, gabapentin 300 mg daily was ordered. He was participating in rehabilitation and making initial progress. On the morning of February 11, 2017, he was found to be with an altered mental status. He was very hypophonic and had marked reduction in his responsiveness. Where it had been possible to have a conversation with him previously, he was now following commands but responding with one-word answers. There was no obvious movement disorder. Vitals were normal. However, there was high suspicion for a recurrent intracranial bleed, so he was sent to the emergency room for further evaluation. CONDITION UPON DISCHARGE: Guarded. ACTIVITY: Assistance for mobility and activities of daily living. DIET: Regular. FOLLOWUP: He will follow up with physicians at the acute care hospital. MEDICATIONS AT DISCHARGE: 1. Acetaminophen 1000 mg q.8 hours. 2. Calcium carbonate 500 mg p.o. t.i.d. p.r.n. indigestion. 3. Escitalopram 10 mg p.o. daily. 4. Fenofibrate 72.5 mg p.o. daily. 5. Gabapentin 300 mg at 0800 and 1400 and 600 mg at bedtime. 6. Hydrochlorothiazide 25 mg p.o. daily. 7. Meclizine 12.5-25 mg p.o. b.i.d. p.r.n. 8. Mirabegron 50 mg p.o. daily. 9. Methyl folate 400 mcg p.o. daily. 10. Multivitamin p.o. daily. 11. Ondansetron 4 mg p.o. q.4 hours p.r.n. 12. Oxycodone 5-10 mg p.o. q.4 hours p.r.n. 13. Pantoprazole 40 mg p.o. daily. 14. Polyethylene glycol 17 g p.o. daily p.r.n. 15. Senna 1 tab p.o. b.i.d. 16. Tramadol 50 mg p.o. q.8 hours scheduled and 50 mg p.o. q.6 hours p.r.n. 17. Valsartan 160 mg p.o. daily. ISSUES TO BE ADDRESSED AT FOLLOWUP: 1. Altered mental status pending further evaluation at the acute care hospital. 2. Functional status. It is hoped that he can be returned to inpatient rehabilitation to continue therapies. /[id number]/MODL MTDD
--- NOTE | 2017-02-11 15:31 | PDOREHIP ---
Admission [facility] - Admission - 3 Day Assessment Period Admission Date/Day 1: 02/08/17 Day 2: 02/09/17 Day 3: 02/10/17 - Active Diagnoses Comorbidities and Co-existing Conditions at Admission: 93171. None of the Above - Skin Conditions Unhealed Pressure Ulcer (1 or more/Stage 1 or >)-Admission: 0. No Discharge [facility] - Discharge - 3 Day Assessment Period 2 Days Prior to Anticipated Discharge Date: 02/09/17 1 Day Prior to Anticipated Discharge Date: 02/10/17 Anticipated Discharge Date: 02/11/17
--- NOTE | 2017-02-11 15:32 | PDOREHIP ---
Admission [facility] - Admission - 3 Day Assessment Period Admission Date/Day 1: 02/08/17 Day 2: 02/09/17 Day 3: 02/10/17 Discharge [facility] - Discharge - 3 Day Assessment Period 2 Days Prior to Anticipated Discharge Date: 02/09/17 1 Day Prior to Anticipated Discharge Date: 02/10/17 Anticipated Discharge Date: 02/11/17 - Discharge Skin Conditions Unhealed Pressure Ulcer (1 or more/Stage 1 or >)-Discharge: 0. No
== END 2017-02-11 14:29 | disposition still patient (30) | DRG 946 ==
LOC: BREH 14:26
PROVIDERS: ADMIT Internal Medicine; ATTEND Internal Medicine
PROC: F0636ZZ Communicative/Cognitive Integration Skills Treatment of Neurological System - Whole Body (ICD-10-PCS; principal; 2017-02-08)
PROC: F08Z7ZZ Vocational Activities and Functional Community or Work Reintegration Skills Treatment (ICD-10-PCS; principal; 2017-02-08)
PROC: F07M3ZZ Motor Function Treatment of Musculoskeletal System - Whole Body (ICD-10-PCS; principal; 2017-02-08)
DX: S06.5X0D Traumatic subdural hemorrhage without loss of consciousness, subsequent encounter (principal); S06.6X0D Traumatic subarachnoid hemorrhage without loss of consciousness, subsequent encounter; W01.0XXA Fall on same level from slipping, tripping and stumbling without subsequent striking against object, initial encounter; Y92.59 Other trade areas as the place of occurrence of the external cause; R53.81 Other malaise; I10 Essential (primary) hypertension; E78.5 Hyperlipidemia, unspecified; F32.9 Major depressive disorder, single episode, unspecified; R27.0 Ataxia, unspecified; N40.0 Benign prostatic hyperplasia without lower urinary tract symptoms; K21.9 Gastro-esophageal reflux disease without esophagitis; G31.84 Mild cognitive impairment of uncertain or unknown etiology; Z85.841 Personal history of malignant neoplasm of brain; G43.909 Migraine, unspecified, not intractable, without status migrainosus
CPT/HCPCS: 92507-GN; 92522-GN; 92526-GN; 92610-GN; 97110-GP; 97112-GP; 97116-GP; 97162-GP; 97166-GO; 97530-GO; 97530-GP; 97535-GO

== ENCOUNTER 2017-02-11 12:07 | Inpatient (IN) | payer OTHER ==
--- NOTE | 2017-02-11 12:09 | EDPHY ---
HPI/HX/ROS/PE/MDM Narrative: CHIEF COMPLAINT: Worsening neurologic status HPI: The patient is a 61 y/o male arriving via EMS from [facility] rehab with acutely worsening neurologic symptoms late this morning. He has a complicated medical history including aseptic meningitis with residual left-sided weakness, oligodendroglioma resection, and hypertension. He was admitted here 02/02/17 with subarachnoid bleeding and a small subdural hemorrhage secondary to multiple falls and was discharged to [facility] rehab on 02/08/17. Per rehab doctor, patient has been doing well and improving daily while there. Today he had an acute change in status and developed confusion, difficulty speaking, and weakness. The provider was concerned for a worsening bleed or stroke and sent patient to the ED for admission. The patient is nonverbal, but otherwise acting appropriately on assessment. History obtained from rehab doctor and [facility] medical records. REVIEW OF SYSTEMS: Unobtainable secondary to patient condition. 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 SOCIAL HISTORY: Nonsmoker. Employed. . Prior medical records reviewed including admission notes 02/02/17 and 02/08/17 PHYSICAL EXAM: General:Patient is alert, in no acute distress. ENT:Eyes are normal to inspection. ENT inspection normal. Neck: Normal inspection. Full range of motion. Respiratory:No respiratory distress. Breath sounds normal bilaterally. Cardiovascular: Regular rate and rhythm. Strong peripheral pulses. Normal cap refill. Abdomen:The abdomen is nontender to palpation. There are no peritoneal signs. Back: Normal to inspection. No tenderness to palpation. Skin: Normal color. No rash. Warm and dry. Extremities: Normal appearance. Full range of motion. Neuro: Can follow commands. Able to move all extremities. Right eyelid droop, mouth symmetric. ED Course: Plan for IV, labs, UA, EKG, chest x-ray, head CT. 500mL IV NS administered. The 12 lead EKG was interpreted by myself. Sinus mechanism rate 59. See hard copy and/or "tracemaster" electronic copy for interpretation. Chest x-ray negative. 1320: Head CT does not show an acute bleed and looks improved per radiology. Reassessed patient and discussed findings. Recommended admission. 1338: Spoke with hospitalist service. Dr. Ponce accepts admission. MDM: This patient presents with acute mental status change in the setting of recent intracranial hemorrhage. Stat CT is thankfully negative for re-bleed or other change. Lab work unremarkable. No signs of pneumonia. On re-eval, patient still altered from baseline, will admit for further workup and observation. - Data Points Imaging Results: Imaging Impressions Head CT 02/11/17 12:11 Impression: 1. Equivocal increase in size of a mixed density left subdural hematoma without significant mass effect. 2. Slight decrease in distribution and overall decrease in size of parafalcine subdural hematoma. 3. Stable postsurgical changes. Chest X-Ray 02/11/17 12:13 Impression: 1. No active cardiopulmonary disease seen. Imaging: Discussed imaging studies w/ director community organization Radiologist, I viewed and interpreted images myself Laboratory Results: Laboratory Results 02/11/17 12:15 02/11/17 12:15 02/11/17 02/11/17 02/11/17 12:15 12:15 12:12 WBC 10.41 10^3/uL H 10^3/uL (3.80-9.50) RBC 5.06 10^6/uL 10^6/uL (4.40-6.38) Hgb 15.5 g/dL g/dL (13.7-17.5) POC Hgb 16.3 gm/dL gm/dL (13.7-17.5) Hct 43.7 % % (40.0-51.0) POC Hct 48 % % (40-51) MCV 86.4 fL fL (81.5-99.8) MCH 30.6 pg pg (27.9-34.1) MCHC 35.5 g/dL g/dL (32.4-36.7) RDW 12.8 % % (11.5-15.2) Plt Count 287 10^3/uL 10^3/uL (150-400) MPV 9.2 fL fL (8.7-11.7) Neut % (Auto) 74.5 % H % (39.3-74.2) Lymph % (Auto) 13.7 % L % (15.0-45.0) [place] % (Auto) 9.6 % % (4.5-13.0) Eos % (Auto) 1.2 % % (0.6-7.6) Baso % (Auto) 0.2 % L % (0.3-1.7) Nucleat RBC Rel Count 0.0 % % (0.0-0.2) Absolute Neuts (auto) 7.76 10^3/uL H 10^3/uL (1.70-6.50) Absolute Lymphs (auto) 1.43 10^3/uL 10^3/uL (1.00-3.00) Absolute Monos (auto) 1.00 10^3/uL H 10^3/uL (0.30-0.80) Absolute Eos (auto) 0.12 10^3/uL 10^3/uL (0.03-0.40) Absolute Basos (auto) 0.02 10^3/uL 10^3/uL (0.02-0.10) Absolute Nucleated RBC 0.00 10^3/uL 10^3/uL (0-0.01) Immature Gran % 0.8 % % (0.0-1.1) Immature Gran # 0.08 10^3/uL 10^3/uL (0.00-0.10) POC Sodium 135 mEq/L mEq/L (134-144) Sodium 135 mEq/L mEq/L (134-144) POC Potassium 5.2 mEq/L H mEq/L (3.3-5.0) Potassium 5.2 mEq/L mEq/L (3.5-5.2) POC Chloride 99 mEq/L mEq/L (97-110) Chloride 99 mEq/L mEq/L (97-110) Carbon Dioxide 24 mEq/l mEq/l (22-31) Anion Gap 12 mEq/L mEq/L (8-16) POC BUN 39 mg/dL H mg/dL (7-23) BUN 26 mg/dL H mg/dL (7-23) Creatinine 1.1 mg/dL mg/dL (0.7-1.3) POC Creatinine 1.2 mg/dL mg/dL (0.7-1.3) Estimated GFR > 60 Glucose 119 mg/dL H mg/dL (70-100) POC Glucose 122 mg/dL H mg/dL (70-100) Calcium 9.1 mg/dL mg/dL (8.5-10.4) Total Bilirubin 1.1 mg/dL mg/dL (0.1-1.4) Conjugated Bilirubin 0.7 mg/dL H mg/dL (0.0-0.5) Unconjugated Bilirubin 0.4 mg/dL mg/dL (0.0-1.1) AST 47 IU/L IU/L (17-59) ALT 33 IU/L IU/L (21-72) Alkaline Phosphatase 48 IU/L IU/L (38-126) Troponin I < 0.012 ng/mL ng/mL (0.000-0.034) Total Protein 7.8 g/dL g/dL (6.3-8.2) Albumin 4.1 g/dL g/dL (3.5-5.0) Specimen Hemolysis 215 Medications Given: Discontinued Medications Sodium Chloride (Ns) 500 mls @ 1,000 mls/hr IV EDNOW ONE PRN Reason: Protocol Stop: 02/11/17 12:42 Last Admin: 02/11/17 12:43 Dose: 500 mls Point of Care Test Results: 02/11/17 12:12 POC Sodium 135 POC Potassium 5.2 H POC Chloride 99 POC BUN 39 H POC Creatinine 1.2 POC Glucose 122 H General Initial Vital Signs: Initial Vital Signs Temperature (C) 36.8 C 02/11/17 12:19 Heart Rate 59 L 02/11/17 12:19 Respiratory Rate 18 02/11/17 12:19 Blood Pressure 128/74 H 02/11/17 12:19 O2 Sat (%) 91 L 02/11/17 12:19 O2 Delivery Mode Room Air O2 (L/minute) 2 Allergies/Adverse Reactions: dutasteride [From Avodart] Allergy (Verified 02/02/17 20:56) [id number] Reductase Inhibitor Allergy (Verified 02/02/17 20:56) Home Medications: Medication Instructions Recorded Gabapentin [Neurontin 300 MG (*)] 600 mg PO HS 01/18/16 Fenofibrate [Tricor 145 mg (*)] 72.5 mg PO DAILY 09/28/16 Multivitamins [Multivitamin (*)] 1 tab PO DAILY 09/28/16 Ondansetron Odt [Zofran Odt 4 mg 4 mg PO Q4HRS PRN #5 tab 09/29/16 (*)] Mirabegron [Myrbetriq] 50 mg PO DAILY 02/03/17 Acetaminophen [Tylenol ES 500 mg 1,000 mg PO Q8 tab 02/08/17 (*)] Polyethylene Glycol 3350 [Miralax 17 gm PO DAILY PRN pkt 02/08/17 17 gm (*)] Escitalopram Oxalate [Lexapro 10 10 mg PO HS #30 tab 02/12/17 MG] Hydrochlorothiazide [HCTZ (*)] 12.5 mg PO DAILY cap 02/12/17 Valsartan [Diovan (*)] 160 mg PO DAILY tab 02/12/17 traMADol [Ultram 50 mg (*)] 25 mg PO Q8H PRN 02/12/17 Departure - Departure Disposition: [facility] Inpatient Acute Clinical Impression: Altered mental status Qualifiers: Altered mental status type: unspecified Qualified Code(s): R41.82 - Altered mental status, unspecified Condition: Good Report Scribed for: Fabian Hurt Report Scribed by: Sabra Brasher Date of Report: 02/11/17 Time of Report: 12:08 Physician Review and Approval Statement: Portions of this note were transcribed by an ED scribe. I personally performed the history, physical exam, and medical decision making; and confirm the accuracy of the information in the transcribed note.
[2017-02-11] MEDS ORDERED: NS 500 ML IV ONE (12:13)
[2017-02-11 12:25] LABS: % IMMATURE GRANULYOCYTES 0.8 % (0.0-1.1); ABSOLUTE IMMATURE GRANULOCYTES 0.08 10^3/uL (0.00-0.10); ADD DIFF? NO; ADD MORPH? NO; ADD SCAN? NO; ATYPICAL LYMPHOCYTE FLAG 0 (0-99); FRAGMENT RBC FLAG 0 (0-99); HEMATOCRIT 43.7 % (40.0-51.0); HEMOGLOBIN 15.5 g/dL (13.7-17.5); LEFT SHIFT FLG 10 (0-99); LIPEMIA HEMOLYSIS FLAG 90 (0-99); MEAN CELL HEMOGLOBIN 30.6 pg (27.9-34.1); MEAN CELL HEMOGLOBIN CONCENTR. 35.5 g/dL (32.4-36.7); MEAN CELL VOLUME 86.4 fL (81.5-99.8); MEAN PLATELET VOLUME 9.2 fL (8.7-11.7); PLATELET CLUMPS FLAG 10 (0-99); PLATELET COUNT 287 10^3/uL (150-400); RED BLOOD CELL COUNT 5.06 10^6/uL (4.40-6.38); RED CELL DISTRIBUTION WIDTH 12.8 % (11.5-15.2)
[2017-02-11 12:47] LABS: ALANINE AMINOTRANSFERASE 33 IU/L (21-72); ALBUMIN 4.1 g/dL (3.5-5.0); ALKALINE PHOSPHATASE 48 IU/L (38-126); ANION GAP 12 mEq/L (8-16); ASPARTATE AMINOTRANSFERASE 47 IU/L (17-59); BILIRUBIN,TOTAL 1.1 mg/dL (0.1-1.4); BILIRUBIN-CONJUGATED 0.7 mg/dL (0.0-0.5); BILIRUBIN-UNCONJUGATED 0.4 mg/dL (0.0-1.1); CALCIUM 9.1 mg/dL (8.5-10.4); CARBON DIOXIDE 24 mEq/l (22-31); CHLORIDE 99 mEq/L (97-110); CREATININE 1.1 mg/dL (0.7-1.3); GLOMERULAR FILTRATION RATE > 60; GLUCOSE 119 mg/dL (70-100); POTASSIUM 5.2 mEq/L (3.5-5.2); SODIUM 135 mEq/L (134-144); TOTAL PROTEIN 7.8 g/dL (6.3-8.2)
--- NOTE | 2017-02-11 12:47 | CPEKG ---
Heart Rate: 59 RR Interval: 1017 P-R Interval: 160 QRSD Interval: 94 QT Interval: 424 QTC Interval: 420 P Curtis: 55 QRS Curtis: 33 T Wave Curtis: 54 EKG Severity - NORMAL ECG - EKG Impression: SINUS RHYTHM EKG Impression: No significant change from February 03, 2017 Electronically Signed By: Damon Hedrick 12-Feb-2017 11:06:11
[2017-02-11 12:50] LABS: SPECIMEN HEMOLYSIS 215
[2017-02-11 12:58] LABS: TROPONIN I < 0.012 ng/mL (0.000-0.034)
[2017-02-11 13:54] LABS: COLOR YELLOW; LEUKOCYTE ESTERASE,URINE TRACE (NEGATIVE); NITRITE,URINE NEGATIVE (NEGATIVE)
[2017-02-11 14:01] LABS: BACTERIA TRACE /hpf (NONE SEEN); MUCUS TRACE /lpf (NONE-1+)
[2017-02-11] MEDS ORDERED: POLYETHYLENE GLYCOL 3350 17 GM PKT PO PRN (14:14)
[2017-02-11] MEDS ORDERED: ONDANSETRON 4 MG/2 ML VIAL IVP PRN (14:31)
[2017-02-11] MEDS ORDERED: NS 1,000 ML IV SCH (14:45)
[2017-02-11] MEDS: ACETAMINOPHEN 325 MG TAB PO PRN (17:35)
--- NOTE | 2017-02-11 18:16 | PDGENHP ---
History and Physical History and Physical: CC: Decreased responsiveness and slow mentation today, sent from inpatient rehab unit to the ER HISTORY: This patient with multiple previous brain injuries and pathologies comes into the emergency room today from our rehab unit. He had been at this hospital earlier this month with a traumatic intracranial hemorrhage episode after a fall. This includes subdural and subarachnoid blood and did not require surgery but did lead to an inpatient rehab unit transfer after his stay here. His injury was February 02 and he was transferred from hospital to the rehab unit February 08 and back here today. The issue today was he was noted to have significant change in overall alertness and responsiveness, very slow, not talking nearly as much as usual. On assessment at the unit there was no specific easily identified cause for this change. He was not having fevers or changes in vital signs and there is no significant change in medicines. His is here at the bedside with me now and she tells me that she did notice that he seemed a little bit off last night from where he had been but did not complain of any discomfort or any other particular symptoms. The patient himself at this time is unable to communicate really and not able to offer any more help in terms of symptoms or review of systems. 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 These have left him with chronic left-sided weakness and some degree of slowness, some at least minor degree in terms of limitation of communication but normally he can be somewhat conversant and ambulatory. In the ER here he was afebrile with stable vital signs and had routine laboratory studies and chest x-ray done which were unrevealing. BUN and white blood cell count are slightly elevated on today's blood test but they are really no different than they have been on his most recent blood tests. Head CT scan which also was also done which showed a decrease in blood from the previous head CT. ROS: A comprehensive 10 system review is attempted and revealed no other significant findings but this is really a very limited review as the patient is unable to participate PAST MEDICAL HISTORY: West Nile virus encephalitis with chronic residual deficits Oligodendroglioma previously resected Kidney stones Statin induced myopathy Hypertension Diverticulitis Appendectomy Esophageal reflux FAMILY MEDICAL HISTORY: No relevant or concerning medical issues per his SOCIAL HISTORY: lives with his No tobacco or alcohol MEDICATIONS: The patients list has been reconciled by our clinical pharmacist in the EMR. I have reviewed the list and ordered appropriate medicines. PHYSICAL EXAMINATION: Vital Signs: Mild hypertension otherwise afebrile Examination: General: Lying in bed awake, very slow to respond when he does and has minimal response. He does engage in make eye contact. It takes a couple of attempts to get him to squeeze my fingers with his hands but I am unable to really get him to follow other commands. He occasionally mother's something to his and when he had urinate he did attempt to sit up at the side of the bed on his own. He would not open his mouth for me to examine intraorally. There is no tremor and I do not see anything that appears as a focal weakness. When he does grab my fingers with his hands he is symmetrically strong left and right Skin: warm, dry, good color, no rash HEENT: No acute abnormality Neck: no mass or jvd Resps: relaxed Lungs: clear breath sounds Heart: regular, no murmur Abdomen: soft, nondistended, nontender, +BS, no mass Upper Extremities: normal Lower Extremities: no edema, warm No Bleeding or bruising IV site: looks normal LABORATORY DATA: White blood cell count 66204 BUN of 26 are at his recent baseline unchanged RADIOLOGY STUDIES: Chest x-ray in the ER today, my interpretation images: No acute abnormality specifically nothing infectious or any heart failure CT scan of head done today in the ER was read by the radiologist as showing a decrease in blood from his prior CT new 12 LEAD EKG: My interpretation of the tracing is a normal 12 lead EKG ASSESSMENT: -acute encephalopathy manifesting as slowed responsiveness decreased alertness decreased communication and man with recent intracranial hemorrhage and multiple prior brain insults with chronic deficits. The cause of this is uncertain. His was concerned that he was getting some MS Contin that might be triggering this but as I review the records and I had our pharmacist also review review the records he did not receive any MS Contin either here or at the rehab unit. He did receive while he was here a couple doses of very low- dose IV morphine and since then has had a few intermittent doses of tramadol and other low-dose oral short-acting narcotic but the doses of these medicines have not changed in amount or frequency any time recently. He did get a higher dose of Neurontin yesterday I believe than what he had been previously getting. It is possible that any of these medications could be causing his acute syndrome but I could not say that reliably particular without any change in what he has been taking. At this point there is no evidence of infection in the way of fever or other clinical signs or symptoms though he does have minimal pyuria. Without low degree of pyuria I am sure he had a Moss catheter at some point here and may just be related to that. Will get urine cultures however to look and see if anything grows. He appears mostly hydrated though his BUN is a little bit high and it has not changed. I am going to hydrate him somewhat and will see how well he can eat. There are not any significant electrolyte or other laboratory changes that can explain this. PLANS: -admission hospital for further evaluation and care of acute encephalopathy as above -he is still not on medicinal DVT VT prophylaxis due to recent intracranial hemorrhage -fall risk precautions -will keep him at the original lower dose of Neurontin once a day and eliminate the morning dose that he had gotten yesterday -minimize all other sedating medicines as possible I have reviewed the patient's past medical records as part of this assessment, including previous inpatient and rehab unit records
--- NOTE | 2017-02-11 19:06 | PDMN ---
Medical Necessity Medical necessity: Pt meets INPT criteria per MD; est. LOS >2 MN for eval/mgmt of acute encephalopathy, s/p recent traumatic ICH after a fall; hx multiple previous brain injuries, encephalilitis, oligodendroglioma resection, htn per [facility]& [facility].
[2017-02-11] MEDS ORDERED: GABAPENTIN 300 MG CAP PO SCH (21:00)
[2017-02-11 23:38] VITALS: O2SAT 92
[2017-02-12 05:29] LABS: % IMMATURE GRANULYOCYTES 0.5 % (0.0-1.1); ABSOLUTE IMMATURE GRANULOCYTES 0.05 10^3/uL (0.00-0.10); ADD DIFF? NO; ADD MORPH? NO; ADD SCAN? NO; ATYPICAL LYMPHOCYTE FLAG 0 (0-99); FRAGMENT RBC FLAG 0 (0-99); HEMATOCRIT 42.6 % (40.0-51.0); HEMOGLOBIN 15.3 g/dL (13.7-17.5); LEFT SHIFT FLG 0 (0-99); LIPEMIA HEMOLYSIS FLAG 90 (0-99); MEAN CELL HEMOGLOBIN 30.6 pg (27.9-34.1); MEAN CELL HEMOGLOBIN CONCENTR. 35.9 g/dL (32.4-36.7); MEAN CELL VOLUME 85.2 fL (81.5-99.8); MEAN PLATELET VOLUME 9.1 fL (8.7-11.7); PLATELET CLUMPS FLAG 10 (0-99); PLATELET COUNT 285 10^3/uL (150-400); RED CELL DISTRIBUTION WIDTH 12.3 % (11.5-15.2)
[2017-02-12 05:39] LABS: ANION GAP 14 mEq/L (8-16); CARBON DIOXIDE 22 mEq/l (22-31); CHLORIDE 100 mEq/L (97-110); CREATININE 0.9 mg/dL (0.7-1.3); GLOMERULAR FILTRATION RATE > 60; GLUCOSE 90 mg/dL (70-100); POTASSIUM 4.1 mEq/L (3.5-5.2); SODIUM 136 mEq/L (134-144)
[2017-02-12 07:52] VITALS: RESP 15; TEMP 98.2
[2017-02-12] MEDS ORDERED: HYDROCHLOROTHIAZIDE 12.5 MG CAP PO SCH (09:00)
[2017-02-12] MEDS: ACETAMINOPHEN 325 MG TAB PO PRN ×2 (09:00→13:15)
[2017-02-12] MEDS ORDERED: [UNRECOGNIZED DRUG - OTHER] PO SCH (09:00)
[2017-02-12] MEDS ORDERED: HYDROCHLOROTHIAZIDE PO SCH (09:00)
[2017-02-12] MEDS ORDERED: VALSARTAN PO SCH (09:00)
[2017-02-12] MEDS ORDERED: ESCITALOPRAM OXALATE 10 MG TAB PO SCH (09:00)
[2017-02-12] MEDS ORDERED: MULTIVITAMINS 1 EACH TAB PO SCH (09:00)
[2017-02-12] MEDS ORDERED: FENOFIBRATE 145 MG TAB PO SCH (09:00)
[2017-02-12] MEDS ORDERED: Mirabegron [Myrbetriq] 50 MG PO SCH ×2 (09:00→09:10)
[2017-02-12] MEDS ORDERED: VALSARTAN 160 MG TAB PO SCH (09:00)
--- NOTE | 2017-02-12 11:58 | HOSPPROG ---
Hospitalist Progress Note Assessment/Plan: Acute encephalopathy - suspect toxic/metabolic. CT neg for acute change. Received 600 mg gabapentin last night, will hold this for now until mentation clears. Avoid centrally sedating medications. Recent SDH / SAH secondary to traumatic injury - no surgical intervention. Stable on CT yest. DVT PPLX - defer pharm given above Full code Dispo - cont inpt, needs PT/OT, return to inpt rehab when stable Objective: Vital Signs Temp Pulse Resp BP Pulse Ox 36.8 C 56 L 15 123/82 H 92 02/12/17 07:48 02/12/17 07:48 02/12/17 07:48 02/12/17 09:00 02/12/17 07:48 Laboratory Results 02/12/17 05:00 02/12/17 05:00 02/11/17 02/12/17 02/13/17 05:59 05:59 05:59 Intake Total 1150 Output Total 550 Balance 600 ICD10 Worksheet Patient Problems: Problems Problem Status Onset Altered mental status Acute Abrasions of multiple sites Acute Diverticulitis large intestine Acute Fall from standing Acute History of West Nile virus (WNV) infection Acute Intracranial hemorrhage Acute Tenderness of neck Acute Truncal ataxia Acute Urinary retention Acute
[2017-02-12 12:17] VITALS: BP 119/73; PULSE 59
--- NOTE | 2017-02-12 12:49 | PDIAF ---
- Diagnosis Diagnosis: acute encephalopathy resolved Code Status: Full Code - Medication Management Discharge Medications: Medications to Continue on Transfer Gabapentin [Neurontin 300 MG (*)] 600 mg PO HS 01/18/16 [Last Taken 02/07/17 21: 00] Fenofibrate [Tricor 145 mg (*)] 0.5 tab PO DAILY 09/28/16 [Last Taken 02/08/17 08:05] Multivitamins [Multivitamin (*)] 1 tab PO DAILY 09/28/16 [Last Taken 02/02/17] Ondansetron Odt [Zofran Odt 4 mg (*)] 4 mg PO Q4HRS PRN #5 tab 09/29/16 [Last Taken Unknown] Mirabegron [Myrbetriq] 50 mg PO DAILY 02/03/17 [Last Taken 02/02/17] Acetaminophen [Tylenol ES 500 mg (*)] 1,000 mg PO Q8 tab 02/08/17 [Last Taken 02/08/17 05:15] Polyethylene Glycol 3350 [Miralax 17 gm (*)] 17 gm PO DAILY PRN pkt 02/08/17 [ Last Taken Unknown] Escitalopram Oxalate [Lexapro 10 MG] 10 mg PO HS #30 tab 02/12/17 [Last Taken Unknown] Hydrochlorothiazide [HCTZ (*)] 12.5 mg PO DAILY cap 02/12/17 [Last Taken Unknown] Valsartan [Diovan (*)] 160 mg PO DAILY tab 02/12/17 [Last Taken Unknown] traMADol [Ultram 50 mg (*)] 25 mg PO Q8H PRN #30 tab 02/12/17 [Last Taken Unknown] Discharge Medications: Refer to the Discharge Home Medication list for PRN reason. PICC Care - Routine: N/A - Orders Services needed: Registered Nurse, Physical Therapy, Occupational Therapy, Speech Language Pathologist Diet Recommendation: no restrictions on diet - Follow Up Care Current Providers and Referrals: Errol Gerard MD [Primary Care Provider] - As per Instructions
--- NOTE | 2017-02-12 14:21 | ASMTCMCOM ---
CM Note CM Note Notes: Pt medically stable for d/c back to [facility] inpatient rehab, wants to transport. Orders to be obtained via [employer]. MARCELINA Thao called report. Date Signed: 02/12/2017 02:20 PM Electronically Signed By:BILL Jimenez
--- NOTE | 2017-02-12 14:22 | ASDISCHSUM ---
Discharge Information Plan Status:Inpatient Rehab Medically Cleared to Leave: Discharge Date:02/12/2017 01:35 PM CM D/C Disposition:[facility] Acute ADT D/C Disposition:[facility] IP Projected Discharge Date:02/12/2017 01:35 PM Transportation at D/C:Family Discharge Delay Reason: Follow-Up Date:02/12/2017 01:35 PM Discharge Slot: Final Diagnosis: Placement Information Patient Contact Information Contact Name:IVON Relationship: Address:[address] City:[place] Phone: State/Zip Code:[place] [phone] Email: Financial Information Financial Class: Primary Plan Desc:MEDICARE INPATIENT Primary Plan Number:[id number] Secondary Plan Desc:[facility] Secondary Plan Number:[id number] Assessment Information [facility] CM Progress Note CM Note CM Note Notes: Pt medically stable for d/c back to [facility] inpatient rehab, wants to transport. Orders to be obtained via [employer]. MARCELINA Thao called report. Date Signed: 02/12/2017 02:20 PM Electronically Signed By:BILL Jimenez Intervention Information
--- NOTE | 2017-02-12 21:19 | GDS ---
[f rep st] DISCHARGE SUMMARY DISCHARGE DIAGNOSES: 1. Acute encephalopathy, resolved. 2. Recent subdural and subarachnoid hemorrhage with stable findings on CT scan. 3. History of West Nile encephalitis with chronic residual deficits which are unchanged from madelin pedro. CONSULTANTS: None. HISTORY: For details, please see dictated history and physical dated February 11, 2017. In brief, patient is a 61-year-old male with a history of West Nile encephalitis, who suffered a fall on February 02 with subsequent subarachnoid and subdural hemorrhage. He was admitted to the hospital at that time and transferred to inpatient rehab on February 08. [facility] due to decreased responsiveness. He was admitted to the [facility] for further evaluation. HOSPITAL COURSE: Patient was admitted to medical-surgical unit. He had a CT of his head performed i n the emergency department which revealed stable to improved findings. This was discussed with the o n-call Neurosurgery service by the emergency department physician and they felt his CT scan showed im provement. It was noted that he had his Neurontin dose tripled and also had been receiving some oxyc odone at the rehab unit. Opiates were held and he was continued on his baseline Neurontin dose at 60 0 mg at bedtime. On the day of discharge, the patient is awake, alert, and 100% back to his baseline. This is verifie d by his and children who are all at the bedside. They all wish for him to return to rehab as s oon as possible to continue his recovery. I recommend he continue the lower dose of Neurontin as the rapidly increased dose may have contributed to decreased mentation in addition to opioid side effect s. I would avoid opiates for headache management due to the risk of rebound headaches as well as his side effects that were demonstrated yesterday in the form of decreased responsiveness. I have reduc ed his dose of tramadol and changed his Lexapro to bedtime as the feels this is a sedating medic ation for him. DISPOSITION: The patient is discharged back to inpatient rehab in stable condition. DISCHARGE MEDICATIONS: Please see [facility] for completed outpatient medication list. Changed medications include Lexapro 10 mg p.o. at h.s. instead of a.m. and tramadol dose is decrease d to 25 mg p.o. q.8 hours p.r.n. He is continued on Neurontin 600 mg p.o. at bedtime, but would avoid rapid dose escalation as he clearly did not tolerate that. He will continue all other medications a s previously prescribed. /[id number]/MODL
== END 2017-02-12 13:35 | DRG 93 ==
LOC: EDUNIT# → F3N 15:00
PROVIDERS: ADMIT Internal Medicine; ATTEND Hospitalist
DX: G92 Toxic encephalopathy (principal); T40.2X5A Adverse effect of other opioids, initial encounter; T43.8X5A Adverse effect of other psychotropic drugs, initial encounter; S06.5X0D Traumatic subdural hemorrhage without loss of consciousness, subsequent encounter; S06.6X0D Traumatic subarachnoid hemorrhage without loss of consciousness, subsequent encounter; W01.0XXD Fall on same level from slipping, tripping and stumbling without subsequent striking against object, subsequent encounter; R53.81 Other malaise; Z86.61 Personal history of infections of the central nervous system; R41.89 Other symptoms and signs involving cognitive functions and awareness; G81.94 Hemiplegia, unspecified affecting left nondominant side; R27.0 Ataxia, unspecified; M24.50 Contracture, unspecified joint; Z85.841 Personal history of malignant neoplasm of brain; I10 Essential (primary) hypertension; E78.5 Hyperlipidemia, unspecified; F32.9 Major depressive disorder, single episode, unspecified; N40.0 Benign prostatic hyperplasia without lower urinary tract symptoms; K21.9 Gastro-esophageal reflux disease without esophagitis; G43.909 Migraine, unspecified, not intractable, without status migrainosus
CPT/HCPCS: 82947-QW; 92523-GN; 97166-GO; G8987-GO-CK; G8988-GO-CI; G9165-GN-CK; G9166-GN-CI

== ENCOUNTER 2017-02-12 14:25 | Inpatient (IN) | payer OTHER ==
[2017-02-12] MEDS ORDERED: ONDANSETRON DISINTEGRATING 4 MG TAB PO PRN (14:41)
[2017-02-12] MEDS ORDERED: traMADol 50 MG TAB PO PRN (14:41)
[2017-02-12] MEDS ORDERED: BISACODYL 10 MG SUPP PR PRN (15:10)
--- NOTE | 2017-02-12 16:08 | GHP ---
[f rep st] HISTORY AND PHYSICAL DATE OF ADMISSION: 02/12/2017 TIME OF EVALUATION: 1440. REFERRING FACILITY: [facility]. REFERRING PHYSICIAN: Domenica Moses MD HISTORY OF PRESENT ILLNESS: Briefly, the patient had been on the inpatient rehabilitation unit for several days when yesterday morning he was noted to have distinctly different mental status. He was alert but sedated. He was speaking in one-word sentences and he was unable to get up and participate in therapies. He was sent emergently to the emergency department where he received a head CT to rule out a recurrent intracranial hemorrhage or hydrocephalus. He also had EKG, chest x-ray and laboratory testing. None of these studies revealed an etiology for his mental status change. EKG showed normal sinus rhythm. Chest x-ray was without any cardiopulmonary abnormalities. Head CT showed improvement in his known intracranial hemorrhage with overall decrease in the size of the parafalcine subdural hematoma and improved frontal parenchymal and subarachnoid hemorrhages. It was unclear whether the left subdural hematoma might have increased in size or not. He was hydrated as his chemistry panel showed some dehydration and today he had some improvement in his mental status. He was able to participate in therapies and he was appropriate to return to inpatient rehabilitation. OTHER LABS AND STUDIES DURING HIS STAY: TSH was normal at 0.747. Liver function tests were normal. Troponin-I was negative for myocardial ischemia. He had mild dehydration with a BUN of 39 and a creatinine of 1.2 and this morning in the hospital his BUN had normalized to 20. His creatinine was 0.9. PAST MEDICAL HISTORY: 1. Falls and subarachnoid and subdural hemorrhages on 02/02/2017. 2. Oligodendroglioma of the brain. 3. 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 4. Transient dysphagia requiring PEG tube, subsequently discontinued. 5. Kidney stones. 6. Diverticulosis. 7. BPH. 8. Hypertension. 9. Dyslipidemia. PAST SURGICAL HISTORY: 1. He has had resection of the old oligodendroglioma in 2006. 2. TURP. 3. Hernia surgery. 4. Appendectomy. 5. Strabismus surgery as a child. ALLERGIES: Are listed to dutasteride and statins. MEDICATIONS: Upon return from the hospital: 1. Acetaminophen 1000 mg p.o. q.8 hours. 2. Escitalopram 10 mg p.o. at bedtime. 3. Fenofibrate 72.5 mg p.o. daily. 4. Gabapentin 600 mg p.o. at bedtime. 5. Hydrochlorothiazide 12.5 mg p.o. daily. 6. Mirabegron 50 mg p.o. daily. 7. Multivitamin 1 p.o. daily. 8. Ondansetron 4 mg q.4 hours p.r.n. 9. Polyethylene glycol 17 g p.o. daily p.r.n. 10. Tramadol 25 mg p.o. q.8 hours p.r.n. 11. Valsartan 160 mg p.o. daily. SOCIAL HISTORY: He is . He lives with his . 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 He is a nonsmoker and does not use alcohol. He has a daughter who lives out of state who was in visiting. FAMILY HISTORY: Noncontributory. REVIEW OF SYSTEMS: He had a headache earlier today which was relieved with acetaminophen. He denies vision changes, new weakness, numbness or tingling of the extremities or difficulty swallowing. He denies pain otherwise. He has no cough or dyspnea. There are no fevers or chills. He has no nausea, vomiting, constipation, or diarrhea, and there is no dysuria or urinary frequency. Otherwise a 10-point review of systems is negative. PHYSICAL EXAMINATION: VITAL SIGNS: Are not yet available in the chart. This morning in the hospital his blood pressure was 130/90, his heart rate was 63, his respiratory rate was 17, oxygen saturation was 95% on room air. Temperature was 36.5 degrees centigrade. His weight is 72.7 kg for a body mass index of 23. GENERAL: This is a well-nourished, well-developed man lying in bed, dressed in street clothes, alert, cooperative, and in no acute distress. HEENT: Extraocular movements are intact with the exception of a deficit noticed to convergence on the right eye. Pupils are equal, round, and reactive to light. Mucous membranes are moist. Dentition is in good condition. NECK: Supple. HEART: There is a regular rate and rhythm with no murmurs, rubs, or gallops. LUNGS: Clear to auscultation bilaterally. ABDOMEN: Soft, nontender , nondistended with normoactive bowel sounds and no hepatosplenomegaly. EXTREMITIES: There is no cyanosis, clubbing, or edema. NEUROLOGIC: He is alert. He is oriented to place and general situation. He is disoriented to the date. Cranial nerves 2-12 are grossly intact. There is no gross focal weakness and sensation is intact to light touch. ASSESSMENT AND PLAN: 1. Debility, status post traumatic brain injury from falling with subarachnoid and subdural hemorrhages. Physical Therapy and Occupational Therapy to optimize mobility and activities of daily living. 2. Cognitive impairments to be assessed and treated per Speech and Language Pathology. 3. Pain management. Unclear whether 25 mg of tramadol every 8 hours will do anything at all. We will increase that to 50 mg p.o. q.6 hours p.r.n. Continue scheduled acetaminophen 1000 mg p.o. t.i.d. and continue gabapentin 600 mg p.o. at bedtime. Given his recent encephalopathy which is most likely due to combination of gabapentin, oxycodone and tramadol, will hesitate to titrate pain medications at all unless pain significantly interferes with therapy or sleep, in which case he should have only a very gradual titration initially of tramadol, subsequently of gabapentin with opiates other than tramadol being only used if nothing else is effective. With any titration of tramadol, gabapentin or use of opiates he needs to have close monitoring regarding excess sedation. 4. Hypertension. Continue valsartan and hydrochlorothiazide. Hydrochlorothiazide had been titrated during his previous stay from 12.5 to 25 mg due to his elevated blood pressure. We will have close monitoring and caution again regarding the hydrochlorothiazide as he had some dehydration when he was evaluated at [facility]. 5. Dyslipidemia. Continue fenofibrate. 6. Depression. Continue escitalopram. His informs me that it should be given at h.s. and this is how it has been ordered. 7. History of resection of right frontal oligodendroglioma and of West Nile virus encephalopathy. He will benefit from therapies regarding any residual from this medical history. 8. BPH. Continue Mirabegron. 9. History of migraine headaches. This is why he has the gabapentin at h.s. as a headache prophylaxis. 10. Prophylaxis. In the hospital there was caution regarding anticoagulation due to his recent history of intracranial hemorrhage. At this point, it would not be significantly risky to treat him with low-dose enoxaparin for prophylaxis. However, his mobility was good when he was here previously. Will assess mobility prior to prescribing anticoagulation. 11. Question of gastroesophageal reflux disorder. He was on omeprazole with his prior admission. It has not been continued through his current rehospitalization. Observe for symptoms and consider restarting an acid francine. /[id number]/MODL MTDD
[2017-02-12] MEDS: traMADol 50 MG TAB PO PRN (17:13)
[2017-02-12] MEDS: ACETAMINOPHEN 500 MG TAB PO SCH (20:52)
[2017-02-12] MEDS: ESCITALOPRAM OXALATE 10 MG TAB PO SCH (20:53)
[2017-02-12] MEDS: GABAPENTIN 300 MG CAP PO SCH (20:53)
[2017-02-13] MEDS: traMADol 50 MG TAB PO PRN ×4 (04:24→23:18)
[2017-02-13] MEDS: ACETAMINOPHEN 500 MG TAB PO SCH ×4 (07:09→21:18)
[2017-02-13] MEDS: FENOFIBRATE 145 MG TAB PO SCH (09:00)
[2017-02-13] MEDS ORDERED: NON-FORMULARY NEW DRUG (Mirabegron [Myrbetriq] 50 MG) PO SCH (09:00)
[2017-02-13] MEDS ORDERED: (Mirabegron [Myrbetriq] 50 MG) PO SCH (09:00)
[2017-02-13] MEDS: HYDROCHLOROTHIAZIDE 12.5 MG CAP PO SCH (09:01)
[2017-02-13] MEDS: VALSARTAN 160 MG TAB PO SCH (09:03)
[2017-02-13] MEDS: MULTIVITAMINS 1 EACH TAB PO SCH (09:04)
[2017-02-13] MEDS: (Mirabegron [Myrbetriq] 50 MG) PO SCH (09:05)
--- NOTE | 2017-02-13 15:24 | SOAPPROG ---
SOAP Progress Note Assessment/Plan: Assessment: * status posttraumatic brain injury due to fall with subarachnoid and subdural hemorrhages * Continue therapy * Does have a headache * cognitive impairment * history of West Nile encephalitis with baseline impairment * hypertension * Hydrochlorothiazide increased * Watch for dehydration * BPH * history of oligodendroglioma status post resection * encephalopathy * Due to interaction between gabapentin and oxycodone and tramadol * Will hold off on adding any more pain medicine Subjective: Complaining of headache Objective: Vital Signs Temp Pulse Resp BP Pulse Ox 36.4 C 60 16 103/67 94 02/13/17 08:00 02/13/17 08:00 02/13/17 08:00 02/13/17 09:03 02/13/17 08:00 02/12/17 02/13/17 02/14/17 05:59 05:59 05:59 Intake Total 300 476 Output Total 1025 300 Balance -725 176 Physical Exam - Physical Exam General Appearance: alert, no apparent distress Respiratory: No respiratory distress Abdomen: non-tender, soft Neuro/Psych: alert, normal mood/affect, oriented x 3 ICD10 Worksheet Patient Problems: Problems Problem Status Onset Abrasions of multiple sites Acute Altered mental status Acute Diverticulitis large intestine Acute Fall from standing Acute History of West Nile virus (WNV) infection Acute Intracranial hemorrhage Acute Tenderness of neck Acute Truncal ataxia Acute Urinary retention Acute
[2017-02-13] MEDS: GABAPENTIN 300 MG CAP PO SCH (21:18)
[2017-02-13] MEDS: ESCITALOPRAM OXALATE 10 MG TAB PO SCH (21:18)
[2017-02-14] MEDS: ACETAMINOPHEN 500 MG TAB PO SCH (06:39)
[2017-02-14] MEDS: POLYETHYLENE GLYCOL 3350 17 GM PKT PO PRN (07:30)
[2017-02-14] MEDS: FENOFIBRATE 145 MG TAB PO SCH (07:30)
[2017-02-14] MEDS: SENNOSIDES 1 TAB PO PRN (07:30)
[2017-02-14] MEDS: MULTIVITAMINS 1 EACH TAB PO SCH (07:30)
[2017-02-14] MEDS: HYDROCHLOROTHIAZIDE 12.5 MG CAP PO SCH (07:31)
[2017-02-14] MEDS: traMADol 50 MG TAB PO PRN (07:31)
[2017-02-14] MEDS: (Mirabegron [Myrbetriq] 50 MG) PO SCH (07:33)
[2017-02-14] MEDS: VALSARTAN 160 MG TAB PO SCH (07:34)
--- NOTE | 2017-02-14 11:57 | SOAPPROG ---
SOAP Progress Note Assessment/Plan: Assessment: * status posttraumatic brain injury due to fall with subarachnoid and subdural hemorrhages * Continue therapy * Does have a headache * headache * Discussed with . We would like to try low-dose hydrocodone to see if this may help some. He has tolerated this in the past * cognitive impairment * history of West Nile encephalitis with baseline impairment * hypertension * Hydrochlorothiazide increased * Watch for dehydration * BPH * history of oligodendroglioma status post resection * encephalopathy * Due to interaction between gabapentin and oxycodone and tramadol * Will try low-dose hydrocodone as he has tolerated that at home in the past. 02/14/17 11:56 Subjective: Continuing to have episodic but quite severe headaches. Tramadol does not seem to be helping Objective: Vital Signs Temp Pulse Resp BP Pulse Ox 36.5 C 55 L 15 133/72 H 92 02/14/17 07:33 02/14/17 07:33 02/14/17 07:33 02/14/17 07:34 02/14/17 07:33 02/13/17 02/14/17 02/15/17 05:59 05:59 05:59 Intake Total 300 1276 75 Output Total 1025 600 150 Balance -725 676 -75 Physical Exam - Physical Exam General Appearance: alert, no apparent distress Respiratory: No respiratory distress Neuro/Psych: alert, normal mood/affect, oriented x 3 ICD10 Worksheet Patient Problems: Problems Problem Status Onset Abrasions of multiple sites Acute Altered mental status Acute Diverticulitis large intestine Acute Fall from standing Acute History of West Nile virus (WNV) infection Acute Intracranial hemorrhage Acute Tenderness of neck Acute Truncal ataxia Acute Urinary retention Acute
[2017-02-14] MEDS: HYDROCODONE/APAP 5/325 TAB PO PRN ×2 (12:44→17:18)
[2017-02-14] MEDS: ESCITALOPRAM OXALATE 10 MG TAB PO SCH (20:25)
[2017-02-14] MEDS: GABAPENTIN 300 MG CAP PO SCH (20:25)
[2017-02-14] MEDS: ACETAMINOPHEN 500 MG TAB PO PRN (22:13)
[2017-02-15] MEDS: HYDROCODONE/APAP 5/325 TAB PO PRN ×3 (05:06→15:02)
[2017-02-15] MEDS: FENOFIBRATE 145 MG TAB PO SCH (07:51)
[2017-02-15] MEDS: HYDROCHLOROTHIAZIDE 12.5 MG CAP PO SCH (07:52)
[2017-02-15] MEDS: (Mirabegron [Myrbetriq] 50 MG) PO SCH (07:53)
[2017-02-15] MEDS: MULTIVITAMINS 1 EACH TAB PO SCH (07:53)
[2017-02-15] MEDS: VALSARTAN 160 MG TAB PO SCH (07:54)
[2017-02-15] MEDS: POLYETHYLENE GLYCOL 3350 17 GM PKT PO PRN (07:56)
[2017-02-15] MEDS: SENNOSIDES 1 TAB PO PRN (07:56)
--- NOTE | 2017-02-15 12:00 | SOAPPROG ---
SOAP Progress Note Assessment/Plan: Assessment: * status posttraumatic brain injury due to fall with subarachnoid and subdural hemorrhages * Initial functional independence measure 80 on 02/10/2017. Bed mobility, transfer and ambulation with contact guard to minimal assist. Grooming and hygiene seated with standby assist. Upper body dressing setup/standby assist. Lower body dressing with minimal assistance shower transfer with contact guard. PT and OT to optimize mobility and activities of daily living. * Continue PT and OT. * headache * Has hydrocodone/APAP which says helps but the effects do not last. He feels he did better on the tramadol. Discussed with . Will change tramadol from p.r.n. to 50 mg scheduled q.6 hours. He has tolerated this in the past * cognitive impairment * Continue [employer]. * history of West Nile encephalitis with baseline impairment * hypertension * Hydrochlorothiazide increased * Watch for dehydration * BPH * history of oligodendroglioma status post resection * encephalopathy * Due to interaction between gabapentin and oxycodone and tramadol * Will try low-dose hydrocodone as he has tolerated that at home in the past. * Depression. Per family's request will discontinue S citalopram. They have noted his decline began coincident with starting this medication last September. * Observed for change in mood. 02/15/17 14:42 Subjective: Continues to have headaches. Weekend coverage physician initiated hydro closed own/acetaminophen. He reports he gets relief from this but it does not last much longer than a few hours. Nurse's note increased pain fatigue and confusion in the afternoon. Objective: Vital Signs Temp Pulse Resp BP Pulse Ox 36.2 C 57 L 16 113/67 94 02/15/17 06:15 02/15/17 06:15 02/15/17 06:15 02/15/17 07:54 02/15/17 06:15 02/14/17 02/15/17 02/16/17 05:59 05:59 05:59 Intake Total 1276 733 360 Output Total 600 1150 250 Balance 676 -417 110 Physical Exam - Physical Exam General Appearance: WD/WN, alert, no apparent distress Respiratory: normal breath sounds, No crackles, No rhonchi, No wheezing Cardiac/Chest: regular rate, rhythm, No diastolic murmur, No systolic murmur Skin: normal color, warm/dry Neuro/Psych: alert, normal mood/affect, oriented x 3, other (Ambulating back into his room with occupational therapist using a front wheeled walker. Needs considerable cuing for proper positioning and strategies for sitting down on the bed.) ICD10 Worksheet Patient Problems: Problems Problem Status Onset Abrasions of multiple sites Acute Altered mental status Acute Diverticulitis large intestine Acute Fall from standing Acute History of West Nile virus (WNV) infection Acute Intracranial hemorrhage Acute Tenderness of neck Acute Truncal ataxia Acute Urinary retention Acute
[2017-02-15] MEDS ORDERED: traMADol 50 MG TAB PO SCH (18:00)
[2017-02-15] MEDS: GABAPENTIN 300 MG CAP PO SCH (20:16)
[2017-02-15] MEDS: SENNOSIDES 1 TAB PO SCH (20:17)
[2017-02-15] MEDS: CALCIUM CARBONATE 500 MG CHEWABLE TAB PO PRN (20:43)
[2017-02-16] MEDS: POLYETHYLENE GLYCOL 3350 17 GM PKT PO SCH (08:08)
[2017-02-16] MEDS: HYDROCODONE/APAP 5/325 TAB PO PRN ×2 (08:09→14:42)
[2017-02-16] MEDS: VALSARTAN 160 MG TAB PO SCH (08:10)
[2017-02-16] MEDS: SENNOSIDES 1 TAB PO SCH ×2 (08:10→20:30)
[2017-02-16] MEDS: MULTIVITAMINS 1 EACH TAB PO SCH (08:10)
[2017-02-16] MEDS: FENOFIBRATE 145 MG TAB PO SCH (08:11)
[2017-02-16] MEDS: HYDROCHLOROTHIAZIDE 12.5 MG CAP PO SCH (08:11)
[2017-02-16] MEDS: (Mirabegron [Myrbetriq] 50 MG) PO SCH (08:12)
--- NOTE | 2017-02-16 08:12 | PDOREHIP ---
Admission [facility] - Admission - 3 Day Assessment Period Admission Date/Day 1: 02/12/17 Day 2: 02/13/17 Day 3: 02/14/17 - Active Diagnoses Comorbidities and Co-existing Conditions at Admission: 29847. None of the Above - Skin Conditions Unhealed Pressure Ulcer (1 or more/Stage 1 or >)-Admission: 0. No
--- NOTE | 2017-02-16 11:24 | SOAPPROG ---
SOAP Progress Note Assessment/Plan: 61-year-old male with impairments in mobility and self-care after a traumatic brain injury with associated subarachnoid and subdural hemorrhages from a fall Today's update: Daily headache, not intractable, posttraumatic seems to be interfering with his participation. Discussed treatment options including low- dose amitriptyline and consideration of propranolol. Elected to try amitriptyline, mindful of interactions with tramadol using caution. Additional details below. A total of 25 minutes was spent on the floor in the care of the patient, the majority of which was spent in the counseling and coordination of care regarding posttraumatic headache etiology and management options * status posttraumatic brain injury due to fall with subarachnoid and subdural hemorrhages * Initial functional independence measure 80 on 02/10/2017. Bed mobility, transfer and ambulation with contact guard to minimal assist. Grooming and hygiene seated with standby assist. Upper body dressing setup/standby assist. Lower body dressing with minimal assistance shower transfer with contact guard. PT and OT to optimize mobility and activities of daily living. * Continue PT and OT. * headache: Posttraumatic, frontal, Daily, not intractable * Has hydrocodone/APAP which says helps but the effects do not last. He feels he did better on the tramadol. Discussed with . Will change tramadol from p.r.n. to 50 mg scheduled q.6 hours. He has tolerated this in the past * Initiating low-dose amitriptyline for headache prevention, posttraumatic type headache. There is some interaction with tramadol and if the dose of amitriptyline is to be increased from its initial dose consideration should be given to transitioning from tramadol to another pain reliever. Another consideration could be to try propranolol in place of amitriptyline. 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 * history of West Nile encephalitis with baseline impairment * hypertension * Hydrochlorothiazide increased * Watch for dehydration * BPH * history of oligodendroglioma status post resection * encephalopathy, may have been exacerbated by dehydration or medication concentration due to dehydration induced renal impairment * Due to interaction between gabapentin and oxycodone and tramadol * Will try low-dose hydrocodone as he has tolerated that at home in the past. * Depression. Per family's request will discontinue S citalopram. They have noted his decline began coincident with starting this medication last September. * Observed for change in mood. Discharge planning per Dr. Sheridan 02/16/17 11:17 Subjective: Chief complaint: Posttraumatic headache No acute events overnight. Patient endorses that he does have a daily headache , frontal, relatively constant but does remit, no other associated symptoms, seems to be helped by rubbing his head. It has occurred since he has had the head injury. Medications are somewhat helpful. He has not been on any headache prophylactic medication. Denies any new shortness of breath or chest pain, no new numbness, tingling, or weakness. Objective: Vital Signs Temp Pulse Resp BP Pulse Ox 36.8 C 61 16 124/84 H 91 L 02/16/17 08:00 02/16/17 08:00 02/16/17 08:00 02/16/17 08:10 02/16/17 08:00 02/15/17 02/16/17 02/17/17 05:59 05:59 05:59 Intake Total 733 1700 410 Output Total 1150 1250 150 Balance -417 450 260 Physical Exam - Physical Exam General Appearance: alert, mild distress, thin EENT: No scleral icterus (R), No scleral icterus (L) Respiratory: normal breath sounds, No respiratory distress, No accessory muscle use Cardiac/Chest: normal peripheral pulses, regular rate, rhythm, No edema Skin: normal color, warm/dry, No cyanosis Extremities: No pedal edema, No swelling Neuro/Psych: alert, normal mood/affect, oriented x 3 ICD10 Worksheet Patient Problems: Problems Problem Status Onset Abrasions of multiple sites Acute Altered mental status Acute Diverticulitis large intestine Acute Fall from standing Acute History of West Nile virus (WNV) infection Acute Intracranial hemorrhage Acute Tenderness of neck Acute Truncal ataxia Acute Urinary retention Acute
[2017-02-16] MEDS: AMITRIPTYLINE HCL 25 MG TAB PO SCH (20:29)
[2017-02-16] MEDS: GABAPENTIN 300 MG CAP PO SCH (20:30)
[2017-02-16] MEDS: ACETAMINOPHEN 500 MG TAB PO PRN (23:14)
[2017-02-17] MEDS: POLYETHYLENE GLYCOL 3350 17 GM PKT PO SCH (08:16)
[2017-02-17] MEDS: MULTIVITAMINS 1 EACH TAB PO SCH (08:16)
[2017-02-17] MEDS: SENNOSIDES 1 TAB PO SCH ×2 (08:16→19:55)
[2017-02-17] MEDS: FENOFIBRATE 145 MG TAB PO SCH (08:17)
[2017-02-17] MEDS: VALSARTAN 160 MG TAB PO SCH (08:19)
[2017-02-17] MEDS: HYDROCHLOROTHIAZIDE 12.5 MG CAP PO SCH (08:20)
[2017-02-17] MEDS: (Mirabegron [Myrbetriq] 50 MG) PO SCH (08:25)
--- NOTE | 2017-02-17 09:31 | SOAPPROG ---
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 He has walked 200 feet with standby assist and a 4 wheeled walker taking short steps. He transfers with contact guard assist and is noted to have some impulsivity. He climbed 12 stairs with contact guard assist and occasionally catching his heel. Upper body dressing is done with setup or supervision, lower body requires supervision and cues as he has decreased recall of strategies. Talked toileting is done with supervision. OT administered the MVPT which demonstrated decreased visual processing and especially decreased speed of processing. * Continue PT and OT. * headache * Has hydrocodone/APAP which says helps but the effects do not last. He feels he did better on the tramadol. Discussed with . Consider changing tramadol from p.r.n. to 50 mg scheduled q.6 hours. He has tolerated this in the past * Initiated low-dose amitriptyline for headache prevention, posttraumatic type headache. There is some interaction with tramadol and if the dose of amitriptyline is to be increased from its initial dose consideration should be given to transitioning from tramadol to another pain reliever. Another consideration could be to try propranolol in place of amitriptyline. * cognitive impairment * Scored 14/30 on the SLUMS. Decreased executive functioning, working memory, math skills. Noted to be perseverative. Lacks initiative. * Noted to spend his time in bed between therapy sessions. Consider trial of a stimulant. D/W patient's outpatient Neurologist Dr. Choi, who reports that he has been considering prescribing of stimulant in the past, and thinks amantadine or other stimulant would be a good choice. Will initiate amantadine. * Continue CRM TECHNICAL LEAD. * history of West Nile encephalitis with baseline impairment * hypertension * Continue hydrochlorothiazide * Watch for dehydration * BPH * history of oligodendroglioma status post resection * encephalopathy, resolved * Due to interaction between gabapentin and oxycodone and tramadol * Will try low-dose hydrocodone as he has tolerated that at home in the past. * Depression. Per family's request will discontinue escitalopram. They have noted his decline began coincident with starting this medication last September. * Observed for change in mood. Attended staffing, 15 minutes. Discussed with case management, dietitian, nursing, PT, OT, CRM TECHNICAL LEAD. He is making slow progress and potential to regain independence sufficient for discharge home is unclear. clinical quality manager is concerned that is having caregiver burnout. Continue tentative discharge date of 03/03/2017. 02/18/17 14:40 Subjective: No complaints this morning. Reports he has a minor headache. Last use of Vicodin was yesterday afternoon. Slept well. Bowels moving. Objective: Vital Signs Temp Pulse Resp BP Pulse Ox 36.5 C 53 L 14 125/71 H 97 02/17/17 07:09 02/17/17 07:09 02/17/17 07:09 02/17/17 08:20 02/17/17 07:09 02/16/17 02/17/17 02/18/17 05:59 05:59 05:59 Intake Total 1700 2030 118 Output Total 1250 750 Balance 450 1280 118 - Time Spent With Patient Time Spent With Patient: Greater than 35 minutes staff time today, including more than 50% of time in coordination of care during staffing meeting, and counseling patient. Physical Exam - Physical Exam General Appearance: WD/WN, alert, no apparent distress Respiratory: No respiratory distress, No accessory muscle use Cardiac/Chest: No edema Skin: normal color, warm/dry Neuro/Psych: no motor/sensory deficits, alert, normal mood/affect, oriented x 3 ICD10 Worksheet Patient Problems: Problems Problem Status Onset Abrasions of multiple sites Acute Altered mental status Acute Diverticulitis large intestine Acute Fall from standing Acute History of West Nile virus (WNV) infection Acute Intracranial hemorrhage Acute Tenderness of neck Acute Truncal ataxia Acute Urinary retention Acute
[2017-02-17] MEDS: CALCIUM CARBONATE 500 MG CHEWABLE TAB PO PRN ×2 (13:20→17:41)
[2017-02-17] MEDS: ACETAMINOPHEN 500 MG TAB PO PRN (13:52)
[2017-02-17] MEDS ORDERED: PANTOPRAZOLE SODIUM 40 MG TAB PO ONE (17:46)
[2017-02-17] MEDS: GABAPENTIN 300 MG CAP PO SCH (19:54)
[2017-02-17] MEDS: AMITRIPTYLINE HCL 25 MG TAB PO SCH (19:55)
--- NOTE | 2017-02-18 08:37 | SOAPPROG ---
SOAP Progress Note Assessment/Plan: 61-year-old male with impairments in mobility and self-care after a traumatic brain injury with associated subarachnoid and subdural hemorrhages from a fall Today's update: Patient responded very well to the amitriptyline, states that his headaches have improved tremendously. He now gets them every other day as opposed to a few times a day, he also notes the intensity has decreased by a substantial amount though he has difficulty quantifying it. He did have some lightheadedness that is most consistent with orthostatic hypotension, counseled to be very careful when standing up and to flex legs when doing so. A total of 20 minutes was spent on the floor in the care of the patient, the majority of which was spent in counseling and coordination of care regarding prevention of orthostatic hypotension and headache prevention management strategies. 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 He has walked 200 feet with standby assist and a 4 wheeled walker taking short steps. He transfers with contact guard assist and is noted to have some impulsivity. He climbed 12 stairs with contact guard assist and occasionally catching his heel. Upper body dressing is done with setup or supervision, lower body requires supervision and cues as he has decreased recall of strategies. Talked toileting is done with supervision. OT administered the MVPT which demonstrated decreased visual processing and especially decreased speed of processing. * Continue PT and OT. * headache: Posttraumatic, not intractable, improving * Has hydrocodone/APAP which says helps but the effects do not last. He feels he did better on the tramadol. Discussed with . Will change tramadol from p.r.n. to 50 mg scheduled q.6 hours. He has tolerated this in the past * Low-dose amitriptyline at 25 mg p.o. at bedtime seems to be decreasing the frequency and intensity of his headaches. Continue present dose, consider increasing in a few days if necessary. There is some interaction with tramadol and if the dose of amitriptyline is to be increased from its initial dose consideration should be given to transitioning from tramadol to another pain reliever. Another consideration could be to try propranolol in place of amitriptyline. * cognitive impairment * Scored 14/30 on the SLUMS. Decreased executive functioning, working memory, math skills. Noted to be perseverative. Lacks initiative. * Noted to spend his time in bed between therapy sessions. Consider trial of a stimulant. D/W patient's outpatient Neurologist Dr. Choi, who reports that he has been considering prescribing of stimulant in the past, and thinks amantadine or other stimulant would be a good choice. Will initiate amantadine. 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 * history of West Nile encephalitis with baseline impairment * hypertension * Continue hydrochlorothiazide * Watch for dehydration * BPH * history of oligodendroglioma status post resection * encephalopathy, resolved * Due to interaction between gabapentin and oxycodone and tramadol * Will try low-dose hydrocodone as he has tolerated that at home in the past. * Depression. Per family's request will discontinue escitalopram. They have noted his decline began coincident with starting this medication last September. * Observed for change in mood. He is making slow progress and potential to regain independence sufficient for discharge home is unclear. road production general manager is concerned that is having caregiver burnout. Continue tentative discharge date of 03/03/2017. 02/16/17 11:17 02/18/17 08:32 Subjective: Chief complaint: Headache and lightheadedness No acute events overnight. Patient denies any shortness of breath or chest pain , no new numbness, tingling, or weakness. He notes that he had some lightheadedness when standing up quickly and he has had this a bit in the past. Also he notes that his headache is only every other day now, much less intense than previously, gone down from several per day down to every other day. This is in conjunction with starting amitriptyline a couple of days ago, 25 mg p.o. at bedtime. He states he is sleeping well. Counseled him on safety for avoiding lightheadedness when standing up. Objective: Vital Signs Temp Pulse Resp BP Pulse Ox 36.4 C 63 16 125/79 H 94 02/18/17 06:17 02/18/17 06:17 02/18/17 06:17 02/18/17 06:17 02/18/17 06:17 02/17/17 02/18/17 02/19/17 05:59 05:59 05:59 Intake Total 2030 1048 Output Total 750 Balance 1280 1048 Physical Exam - Physical Exam General Appearance: alert, no apparent distress, thin EENT: No scleral icterus (R), No scleral icterus (L) Respiratory: No respiratory distress, No accessory muscle use Cardiac/Chest: normal peripheral pulses, regular rate, rhythm Skin: normal color, warm/dry, No cyanosis Neuro/Psych: alert, normal mood/affect, other (Mild right-sided facial droop, unchanged) ICD10 Worksheet Patient Problems: Problems Problem Status Onset Abrasions of multiple sites Acute Altered mental status Acute Diverticulitis large intestine Acute Fall from standing Acute History of West Nile virus (WNV) infection Acute Intracranial hemorrhage Acute Tenderness of neck Acute Truncal ataxia Acute Urinary retention Acute
[2017-02-18] MEDS: HYDROCHLOROTHIAZIDE 12.5 MG CAP PO SCH (09:39)
[2017-02-18] MEDS: VALSARTAN 160 MG TAB PO SCH (09:41)
[2017-02-18] MEDS: SENNOSIDES 1 TAB PO SCH ×2 (09:41→20:29)
[2017-02-18] MEDS: FENOFIBRATE 145 MG TAB PO SCH (09:41)
[2017-02-18] MEDS: POLYETHYLENE GLYCOL 3350 17 GM PKT PO SCH (09:41)
[2017-02-18] MEDS: MULTIVITAMINS 1 EACH TAB PO SCH (09:41)
[2017-02-18] MEDS: AMANTADINE HCL 100 MG CAP PO SCH (09:41)
[2017-02-18] MEDS: PANTOPRAZOLE SODIUM 40 MG TAB PO SCH (09:41)
[2017-02-18] MEDS: (Mirabegron [Myrbetriq] 50 MG) PO SCH (09:43)
[2017-02-18] MEDS: HYDROCODONE/APAP 5/325 TAB PO PRN (16:27)
[2017-02-18] MEDS: GABAPENTIN 300 MG CAP PO SCH (20:29)
[2017-02-18] MEDS: AMITRIPTYLINE HCL 25 MG TAB PO SCH (20:29)
[2017-02-19] MEDS: POLYETHYLENE GLYCOL 3350 17 GM PKT PO SCH (08:54)
[2017-02-19] MEDS: SENNOSIDES 1 TAB PO SCH ×2 (08:54→20:31)
[2017-02-19] MEDS: AMANTADINE HCL 100 MG CAP PO SCH (08:59)
[2017-02-19] MEDS: FENOFIBRATE 145 MG TAB PO SCH (09:00)
[2017-02-19] MEDS: (Mirabegron [Myrbetriq] 50 MG) PO SCH (09:02)
[2017-02-19] MEDS: VALSARTAN 160 MG TAB PO SCH (09:04)
[2017-02-19] MEDS: MULTIVITAMINS 1 EACH TAB PO SCH (09:04)
[2017-02-19] MEDS: PANTOPRAZOLE SODIUM 40 MG TAB PO SCH (09:04)
[2017-02-19] MEDS: HYDROCHLOROTHIAZIDE 12.5 MG CAP PO SCH (09:07)
--- NOTE | 2017-02-19 12:59 | SOAPPROG ---
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 He has walked 200 feet with standby assist and a 4 wheeled walker taking short steps. He transfers with contact guard assist and is noted to have some impulsivity. He climbed 12 stairs with contact guard assist and occasionally catching his heel. Upper body dressing is done with setup or supervision, lower body requires supervision and cues as he has decreased recall of strategies. Toileting is done with supervision. OT administered the MVPT which demonstrated decreased visual processing and especially decreased speed of processing. * Continue PT and OT. * headache * Much improved with no headache today 02/19/2017. Has hydrocodone/APAP which says helps but the effects do not last. * Initiated low-dose amitriptyline for headache prevention, posttraumatic type headache. There is some interaction with tramadol and if the dose of amitriptyline is to be increased from its initial dose consideration should be given to transitioning from tramadol to another pain reliever. Another consideration could be to try propranolol in place of amitriptyline. * cognitive impairment * Scored 14/30 on the SLUMS. Decreased executive functioning, working memory, math skills. Noted to be perseverative. Lacks initiative. * Initiated amantadine as a stimulant 02/18/2017. Appears more alert on my exam today 02/19/2017 and PT and OT confirm improved alertness. Continue amantadine. This was discussed with patient's outpatient Neurologist Dr. Choi, who reports that he has been considering prescribing of stimulant in the past, and thinks amantadine or other stimulant would be a good choice. 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 * history of West Nile encephalitis with baseline impairment * hypertension * Continue hydrochlorothiazide * Watch for dehydration * BPH * history of oligodendroglioma status post resection * encephalopathy, resolved * Due to interaction between gabapentin and oxycodone and tramadol * Will try low-dose hydrocodone as he has tolerated that at home in the past. * Depression. Per family's request will discontinue escitalopram. They have noted his decline began coincident with starting this medication last September. * Observed for change in mood. He is making slow progress and potential to regain independence sufficient for discharge home is unclear. manager diabetes is concerned that is having caregiver burnout. Continue tentative discharge date of 03/03/2017. 02/19/17 12:59 Subjective: No complaints. Sleeping well with amitriptyline added. No headache today. Objective: Vital Signs Temp Pulse Resp BP Pulse Ox 36.8 C 63 16 133/80 H 94 02/19/17 07:25 02/19/17 07:25 02/19/17 07:25 02/19/17 09:07 02/19/17 07:25 02/18/17 02/19/17 02/20/17 05:59 05:59 05:59 Intake Total 1048 900 590 Balance 1048 900 590 Physical Exam - Physical Exam General Appearance: WD/WN, alert, no apparent distress Respiratory: normal breath sounds, No crackles, No rhonchi, No wheezing Cardiac/Chest: regular rate, rhythm, No edema Skin: normal color, warm/dry Neuro/Psych: no motor/sensory deficits, alert, normal mood/affect, oriented x 3 , abnormal gait (Short steps, with front wheeled walker, occasionally scuffing feet.) ICD10 Worksheet Patient Problems: Problems Problem Status Onset Abrasions of multiple sites Acute Altered mental status Acute Diverticulitis large intestine Acute Fall from standing Acute History of West Nile virus (WNV) infection Acute Intracranial hemorrhage Acute Tenderness of neck Acute Truncal ataxia Acute Urinary retention Acute
[2017-02-19 18:42] LABS: COLOR YELLOW; LEUKOCYTE ESTERASE,URINE NEGATIVE (NEGATIVE); NITRITE,URINE NEGATIVE (NEGATIVE)
[2017-02-19] MEDS: GABAPENTIN 300 MG CAP PO SCH (20:30)
[2017-02-19] MEDS: AMITRIPTYLINE HCL 25 MG TAB PO SCH (20:30)
[2017-02-20] MEDS: SENNOSIDES 1 TAB PO SCH ×2 (08:06→20:31)
[2017-02-20] MEDS: POLYETHYLENE GLYCOL 3350 17 GM PKT PO SCH (08:06)
[2017-02-20] MEDS: VALSARTAN 160 MG TAB PO SCH (08:07)
[2017-02-20] MEDS: AMANTADINE HCL 100 MG CAP PO SCH (08:07)
[2017-02-20] MEDS: HYDROCHLOROTHIAZIDE 12.5 MG CAP PO SCH (08:07)
[2017-02-20] MEDS: FENOFIBRATE 145 MG TAB PO SCH (08:07)
[2017-02-20] MEDS: (Mirabegron [Myrbetriq] 50 MG) PO SCH (08:08)
[2017-02-20] MEDS: PANTOPRAZOLE SODIUM 40 MG TAB PO SCH (08:08)
[2017-02-20] MEDS: MULTIVITAMINS 1 EACH TAB PO SCH (08:08)
--- NOTE | 2017-02-20 10:37 | SOAPPROG ---
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 He has walked 200 feet with standby assist and a 4 wheeled walker taking short steps. He transfers with contact guard assist and is noted to have some impulsivity. He climbed 12 stairs with contact guard assist and occasionally catching his heel. Upper body dressing is done with setup or supervision, lower body requires supervision and cues as he has decreased recall of strategies. Toileting is done with supervision. OT administered the MVPT which demonstrated decreased visual processing and especially decreased speed of processing. * Continue PT and OT. * headache * NO headache today . Has hydrocodone/APAP which says helps but the effects do not last. * Initiated low-dose amitriptyline for headache prevention, posttraumatic type headache. There is some interaction with tramadol and if the dose of amitriptyline is to be increased from its initial dose consideration should be given to transitioning from tramadol to another pain reliever. Another consideration could be to try propranolol in place of amitriptyline. * cognitive impairment * Scored 14/30 on the SLUMS. Decreased executive functioning, working memory, math skills. Noted to be perseverative. Lacks initiative. * Initiated amantadine as a stimulant 02/18/2017. Appears alert on my exam today. Continue amantadine. This was discussed with patient's outpatient Neurologist Dr. Choi, who reports that he has been considering prescribing of stimulant in the past, and thinks amantadine or other stimulant would be a good choice. 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 * history of West Nile encephalitis with baseline impairment * hypertension- BP THIS AM 127/71 * Continue hydrochlorothiazide * Watch for dehydration * BPH * history of oligodendroglioma status post resection * encephalopathy, resolved * Due to interaction between gabapentin and oxycodone and tramadol * Will try low-dose hydrocodone as he has tolerated that at home in the past. * Depression. Per family's request will discontinue escitalopram. They have noted his decline began coincident with starting this medication last September. * Observed for change in mood. Plan: 02/20/17 10:38 Subjective: NO C/O bhatti or diziness, C/O MILD LUE,LLE WEAKNESS Objective: Vital Signs Temp Pulse Resp BP Pulse Ox 36.6 C 76 16 127/71 H 93 02/20/17 08:00 02/20/17 08:00 02/20/17 08:00 02/20/17 08:07 02/20/17 08:00 02/19/17 02/20/17 02/21/17 05:59 05:59 04:59 Intake Total 900 1070 Output Total 50 Balance 900 1020 Physical Exam - Physical Exam General Appearance: WD/WN, alert, no apparent distress Respiratory: lungs clear, normal breath sounds Skin: normal color, warm/dry Extremities: No calf tenderness, No swelling, No Lalitha's sign Neuro/Psych: alert, oriented x 3, motor weakness (VERY MILD WEAKNESS OF LEFT HIP FLEXORS. NO DETECTABLE LEFT SHOULDER GIRDLE WEAKNESS) ICD10 Worksheet Patient Problems: Problems Problem Status Onset Abrasions of multiple sites Acute Altered mental status Acute Diverticulitis large intestine Acute Fall from standing Acute History of West Nile virus (WNV) infection Acute Intracranial hemorrhage Acute Tenderness of neck Acute Truncal ataxia Acute Urinary retention Acute
[2017-02-20] MEDS: AMITRIPTYLINE HCL 25 MG TAB PO SCH (20:31)
[2017-02-20] MEDS: GABAPENTIN 300 MG CAP PO SCH (20:31)
[2017-02-21] MEDS: ACETAMINOPHEN 500 MG TAB PO PRN (04:57)
[2017-02-21] MEDS: FENOFIBRATE 145 MG TAB PO SCH (08:54)
[2017-02-21] MEDS: AMANTADINE HCL 100 MG CAP PO SCH (08:54)
[2017-02-21] MEDS: HYDROCHLOROTHIAZIDE 12.5 MG CAP PO SCH (08:55)
[2017-02-21] MEDS: (Mirabegron [Myrbetriq] 50 MG) PO SCH (08:55)
[2017-02-21] MEDS: POLYETHYLENE GLYCOL 3350 17 GM PKT PO SCH (08:56)
[2017-02-21] MEDS: MULTIVITAMINS 1 EACH TAB PO SCH (08:56)
[2017-02-21] MEDS: PANTOPRAZOLE SODIUM 40 MG TAB PO SCH (08:56)
[2017-02-21] MEDS: VALSARTAN 160 MG TAB PO SCH (08:57)
[2017-02-21] MEDS: SENNOSIDES 1 TAB PO SCH ×2 (08:57→20:11)
--- NOTE | 2017-02-21 10:16 | SOAPPROG ---
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 He has walked 200 feet with standby assist and a 4 wheeled walker taking short steps. He transfers with contact guard assist and is noted to have some impulsivity. He climbed 12 stairs with contact guard assist and occasionally catching his heel. Upper body dressing is done with setup or supervision, lower body requires supervision and cues as he has decreased recall of strategies. Toileting is done with supervision. OT administered the MVPT which demonstrated decreased visual processing and especially decreased speed of processing. * Continue PT and OT. * headache * NO headache today . Has hydrocodone/APAP which says helps but the effects do not last. * Initiated low-dose amitriptyline for headache prevention, posttraumatic type headache. There is some interaction with tramadol and if the dose of amitriptyline is to be increased from its initial dose consideration should be given to transitioning from tramadol to another pain reliever. Another consideration could be to try propranolol in place of amitriptyline. * cognitive impairment- CONTINUE SPEECH THERAPYTO ADDRESS COGNITVE DEFICITS * Scored 14/30 on the SLUMS. Decreased executive functioning, working memory, math skills. Noted to be perseverative. Lacks initiative. * Initiated amantadine as a stimulant 02/18/2017. FEELS SOMEWHAT EDGY THIS AM. PULSE WAS 64 AND REG. IF THIS CONTINUES MAY WANT TO DECREASE DOSE OF AMANTADINE. , and thinks amantadine or other stimulant would be a good choice. 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 * history of West Nile encephalitis with baseline impairment * hypertension- BP THIS AM 128/58 * Continue hydrochlorothiazide * Watch for dehydration * BPH * history of oligodendroglioma status post resection * encephalopathy, resolved * Due to interaction between gabapentin and oxycodone and tramadol * Will try low-dose hydrocodone as he has tolerated that at home in the past. * Depression. Per family's request will discontinue escitalopram. They have noted his decline began coincident with starting this medication last September. * Observed for change in mood. 02/20/17 10:38 02/21/17 10:13 Subjective: HE REPORTS HE IS FEELING EDGY THIS AM. Objective: Vital Signs Temp Pulse Resp BP Pulse Ox 36.4 C 59 L 16 128/58 H 92 02/21/17 06:18 02/21/17 06:18 02/21/17 06:18 02/21/17 08:57 02/21/17 06:18 02/20/17 02/21/17 02/22/17 06:59 05:59 05:59 Intake Total 120 Output Total Balance 120 Physical Exam - Physical Exam General Appearance: alert, no apparent distress Respiratory: lungs clear, normal breath sounds Cardiac/Chest: regular rate, rhythm, No edema, No gallop Abdomen: non-tender Skin: warm/dry Extremities: normal range of motion Neuro/Psych: alert, cognition abnormalities (IMPAIRED SHORT TERM MEMORY DEFICITS ) ICD10 Worksheet Patient Problems: Problems Problem Status Onset Abrasions of multiple sites Acute Altered mental status Acute Diverticulitis large intestine Acute Fall from standing Acute History of West Nile virus (WNV) infection Acute Intracranial hemorrhage Acute Tenderness of neck Acute Truncal ataxia Acute Urinary retention Acute
[2017-02-21] MEDS: AMITRIPTYLINE HCL 25 MG TAB PO SCH (20:11)
[2017-02-21] MEDS: GABAPENTIN 300 MG CAP PO SCH (20:12)
[2017-02-22] MEDS: FENOFIBRATE 145 MG TAB PO SCH (08:27)
[2017-02-22] MEDS: AMANTADINE HCL 100 MG CAP PO SCH (08:27)
[2017-02-22] MEDS: (Mirabegron [Myrbetriq] 50 MG) PO SCH (08:29)
[2017-02-22] MEDS: MULTIVITAMINS 1 EACH TAB PO SCH (08:30)
[2017-02-22] MEDS: POLYETHYLENE GLYCOL 3350 17 GM PKT PO SCH (08:30)
[2017-02-22] MEDS: SENNOSIDES 1 TAB PO SCH (08:30)
[2017-02-22] MEDS: PANTOPRAZOLE SODIUM 40 MG TAB PO SCH (08:30)
[2017-02-22] MEDS ORDERED: SENNOSIDES 1 TAB PO PRN (09:25)
[2017-02-22] MEDS: HYDROCHLOROTHIAZIDE 12.5 MG CAP PO SCH (09:33)
[2017-02-22] MEDS: VALSARTAN 160 MG TAB PO SCH (09:33)
--- NOTE | 2017-02-22 10:00 | SOAPPROG ---
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 He has walked 200 feet with standby assist and a 4 wheeled walker taking short steps. Working on ambulating with no assistive device. He transfers with contact guard assist and is noted to have some impulsivity. He climbed 12 stairs with contact guard assist and occasionally catching his heel. Upper body dressing is done with setup or supervision, lower body requires supervision and cues as he has decreased recall of strategies. Toileting is done with supervision. OT administered the MVPT which demonstrated decreased visual processing and especially decreased speed of processing. * Continue PT and OT. * headache * Much improved with no headache today 02/19/2017. Has hydrocodone/APAP which says helps but the effects do not last. * Initiated low-dose amitriptyline for headache prevention, posttraumatic type headache. There is some interaction with tramadol and if the dose of amitriptyline is to be increased from its initial dose consideration should be given to transitioning from tramadol to another pain reliever. Another consideration could be to try propranolol in place of amitriptyline. * cognitive impairment * Scored 14/30 on the SLUMS. Decreased executive functioning, working memory, math skills. Noted to be perseverative. Lacks initiative. * Initiated amantadine as a stimulant 02/18/2017. Appears more alert on my exam today 02/19/2017 and PT and OT confirm improved alertness. Continue amantadine. This was discussed with patient's outpatient Neurologist Dr. Choi, who reports that he has been considering prescribing of stimulant in the past, and thinks amantadine or other stimulant would be a good choice. 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 * history of West Nile encephalitis with baseline impairment * hypertension * Continue hydrochlorothiazide * Watch for dehydration * BPH * history of oligodendroglioma status post resection * encephalopathy, resolved * Due to interaction between gabapentin and oxycodone and tramadol * Will try low-dose hydrocodone as he has tolerated that at home in the past. * Depression. Per family's request will discontinue escitalopram. They have noted his decline began coincident with starting this medication last September. * Observed for change in mood. He is making slow progress and potential to regain independence sufficient for discharge home is unclear. finance insurance manager is concerned that is having caregiver burnout. Continue tentative discharge date of 03/03/2017. 02/22/17 09:57 Subjective: No complaints. Sleeping well. Feels that alertness is improved. Physical therapy notes festinating gait with a progressive forward lean. Objective: Vital Signs Temp Pulse Resp BP Pulse Ox 36.4 C 56 L 16 111/78 92 02/22/17 06:12 02/22/17 06:12 02/22/17 06:12 02/22/17 09:33 02/22/17 06:12 02/21/17 02/22/17 02/23/17 05:59 05:59 05:59 Intake Total 1440 480 Output Total Balance 1440 480 Physical Exam - Physical Exam General Appearance: WD/WN, alert, no apparent distress Respiratory: normal breath sounds, No crackles, No rhonchi, No wheezing Cardiac/Chest: regular rate, rhythm, No edema, No diastolic murmur, No systolic murmur Skin: normal color, warm/dry Neuro/Psych: alert, normal mood/affect, abnormal gait, other (No tremor) ICD10 Worksheet Patient Problems: Problems Problem Status Onset Abrasions of multiple sites Acute Altered mental status Acute Diverticulitis large intestine Acute Fall from standing Acute History of West Nile virus (WNV) infection Acute Intracranial hemorrhage Acute Tenderness of neck Acute Truncal ataxia Acute Urinary retention Acute
[2017-02-22] MEDS: HYDROCODONE/APAP 5/325 TAB PO PRN (19:25)
[2017-02-22] MEDS: GABAPENTIN 300 MG CAP PO SCH (19:25)
[2017-02-22] MEDS: AMITRIPTYLINE HCL 25 MG TAB PO SCH (19:25)
[2017-02-23] MEDS: POLYETHYLENE GLYCOL 3350 17 GM PKT PO SCH ×2 (08:07→08:16)
[2017-02-23] MEDS: AMANTADINE HCL 100 MG CAP PO SCH (08:08)
[2017-02-23] MEDS: FENOFIBRATE 145 MG TAB PO SCH (08:08)
[2017-02-23] MEDS: MULTIVITAMINS 1 EACH TAB PO SCH (08:09)
[2017-02-23] MEDS: PANTOPRAZOLE SODIUM 40 MG TAB PO SCH (08:09)
[2017-02-23] MEDS: (Mirabegron [Myrbetriq] 50 MG) PO SCH (08:10)
[2017-02-23] MEDS: VALSARTAN 160 MG TAB PO SCH (12:46)
[2017-02-23] MEDS: HYDROCHLOROTHIAZIDE 12.5 MG CAP PO SCH (12:47)
--- NOTE | 2017-02-23 13:01 | SOAPPROG ---
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 He has walked 200 feet with standby assist and a 4 wheeled walker taking short steps. Working on ambulating with no assistive device. He transfers with contact guard assist and is noted to have some impulsivity. He climbed 12 stairs with contact guard assist and occasionally catching his heel. Upper body dressing is done with setup or supervision, lower body requires supervision and cues as he has decreased recall of strategies. Toileting is done with supervision. OT administered the MVPT which demonstrated decreased visual processing and especially decreased speed of processing. * Continue PT and OT. * headache * Much improved. Has hydrocodone/APAP which says helps but the effects do not last. * Initiated low-dose amitriptyline for headache prevention, posttraumatic type headache. There is some interaction with tramadol and if the dose of amitriptyline is to be increased from its initial dose consideration should be given to transitioning from tramadol to another pain reliever. Another consideration could be to try propranolol in place of amitriptyline. * cognitive impairment * Scored 14/30 on the SLUMS. Decreased executive functioning, working memory, math skills. Noted to be perseverative. Lacks initiative. * Initiated amantadine as a stimulant 02/18/2017. 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 PT and OT confirm improved alertness. Continue amantadine. This was discussed with patient's outpatient Neurologist Dr. Choi, who reports that he has been considering prescribing of stimulant in the past, and thinks amantadine or other stimulant would be a good choice. * Continue TECHNICAL OPERATIONS SPECIALIST. 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 Relatively low blood pressure today 02/23/2017; hydrochlorothiazide held. Continue to monitor. * Watch for dehydration * BPH * history of oligodendroglioma status post resection * encephalopathy, resolved * Due to interaction between gabapentin and oxycodone and tramadol * Will try low-dose hydrocodone as he has tolerated that at home in the past. * Depression. Per family's request will discontinue escitalopram. They have noted his decline began coincident with starting this medication last September. * Observed for change in mood. He is making slow progress and potential to regain independence sufficient for discharge home is unclear. 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 Continue tentative discharge date of 03/03/2017. 02/23/17 13:48 Subjective: No complaints. Likes the amantadine. No fevers/chills, dyspnea. Has occasional cough when eating, since he had West Nile virus. No n/v/c/d, no dysuria/frequency. Objective: Vital Signs Temp Pulse Resp BP Pulse Ox 36.4 C 65 14 134/86 H 96 02/23/17 07:47 02/23/17 12:42 02/23/17 07:47 02/23/17 12:46 02/23/17 07:47 02/22/17 02/23/17 02/24/17 05:59 05:59 05:59 Intake Total 1440 1160 800 Balance 1440 1160 800 Physical Exam - Physical Exam General Appearance: WD/WN, alert, no apparent distress Respiratory: normal breath sounds, No crackles, No rhonchi, No wheezing Cardiac/Chest: regular rate, rhythm, No edema Skin: normal color, warm/dry Neuro/Psych: no motor/sensory deficits, alert, normal mood/affect, oriented x 3 ICD10 Worksheet Patient Problems: Problems Problem Status Onset Abrasions of multiple sites Acute Altered mental status Acute Diverticulitis large intestine Acute Fall from standing Acute History of West Nile virus (WNV) infection Acute Intracranial hemorrhage Acute Tenderness of neck Acute Truncal ataxia Acute Urinary retention Acute
[2017-02-23] MEDS: GABAPENTIN 300 MG CAP PO SCH (20:26)
[2017-02-23] MEDS: AMITRIPTYLINE HCL 25 MG TAB PO SCH (20:26)
[2017-02-24] MEDS: PANTOPRAZOLE SODIUM 40 MG TAB PO SCH (08:53)
[2017-02-24] MEDS: AMANTADINE HCL 100 MG CAP PO SCH (08:53)
[2017-02-24] MEDS: FENOFIBRATE 145 MG TAB PO SCH (08:53)
[2017-02-24] MEDS: MULTIVITAMINS 1 EACH TAB PO SCH (08:54)
[2017-02-24] MEDS: HYDROCHLOROTHIAZIDE 12.5 MG CAP PO SCH (08:54)
[2017-02-24] MEDS: VALSARTAN 160 MG TAB PO SCH (08:54)
[2017-02-24] MEDS: (Mirabegron [Myrbetriq] 50 MG) PO SCH (08:56)
[2017-02-24] MEDS: POLYETHYLENE GLYCOL 3350 17 GM PKT PO SCH (08:56)
--- NOTE | 2017-02-24 11:38 | SOAPPROG ---
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 He has walked 200 feet with CGA and no device. He transfers with SBA to [facility] and is noted to have some impulsivity. He climbed 18 stairs with bilateral rails and cues to slow down. Upper body dressing is done with setup or supervision, lower body occasional contact guard assist for balance. Toileting is done with SBA to CGA for balance with clothing management. OT administered the MVPT which demonstrated decreased visual processing and especially decreased speed of processing. * Continue PT and OT. * headache * Much improved. Has hydrocodone/APAP; not used for 2 days. * Initiated low-dose amitriptyline for headache prevention, posttraumatic type headache. * cognitive impairment * Scored 14/30 on the SLUMS; increased to 25/30 as of 02/24/2017. Decreased memory. Improved initiative. * Initiated amantadine as a stimulant 02/18/2017. 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 PT and OT confirm improved alertness. Continue amantadine. This was discussed with patient's outpatient Neurologist Dr. Choi, who reports that he has been considering prescribing of stimulant in the past, and thinks amantadine or other stimulant would be a good choice. * Continue STRETCH MACHINE OPERATOR. 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 Continue to monitor. * Watch for dehydration * BPH * history of oligodendroglioma status post resection * encephalopathy, resolved * Due to interaction between gabapentin and oxycodone and tramadol * Will try low-dose hydrocodone as he has tolerated that at home in the past. * Depression. Per family's request will discontinue escitalopram. They have noted his decline began coincident with starting this medication last September. * Observed for change in mood. At attended staffing, 15 minutes. Discussed with case management, the nursing, pharmacy, dietitian, PT, OT, STRETCH MACHINE OPERATOR. Continues to make progress especially after initiation of amantadine, and potential to regain independence sufficient for discharge home good. Continue tentative discharge date of 03/03/2017. 02/24/17 11:31 Subjective: No complaints. Not in pain, no headache. No cough or dyspnea, no fevers or chills. Objective: Vital Signs Temp Pulse Resp BP Pulse Ox 36.6 C 69 16 123/90 H 95 02/24/17 07:54 02/24/17 07:54 02/24/17 07:54 02/24/17 08:54 02/24/17 07:54 02/23/17 02/24/17 02/25/17 05:59 05:59 05:59 Intake Total 1160 1350 360 Output Total 1 Balance 1160 1349 360 - Time Spent With Patient Time Spent With Patient: Greater than 35 minutes floor time today, including more than 50% of time in coordination of care during staffing meeting, and counseling patient. Physical Exam - Physical Exam General Appearance: WD/WN, alert, no apparent distress Respiratory: normal breath sounds, No crackles, No rhonchi, No wheezing Cardiac/Chest: regular rate, rhythm, No diastolic murmur, No systolic murmur Skin: normal color, warm/dry Neuro/Psych: alert, normal mood/affect, abnormal gait (Short steps, with front wheeled walker, accompanied by OT.) ICD10 Worksheet Patient Problems: Problems Problem Status Onset Abrasions of multiple sites Acute Altered mental status Acute Diverticulitis large intestine Acute Fall from standing Acute History of West Nile virus (WNV) infection Acute Intracranial hemorrhage Acute Tenderness of neck Acute Truncal ataxia Acute Urinary retention Acute
[2017-02-24] MEDS: AMITRIPTYLINE HCL 25 MG TAB PO SCH (20:19)
[2017-02-24] MEDS: GABAPENTIN 300 MG CAP PO SCH (20:19)
[2017-02-25] MEDS: PANTOPRAZOLE SODIUM 40 MG TAB PO SCH (08:51)
[2017-02-25] MEDS: MULTIVITAMINS 1 EACH TAB PO SCH (08:51)
[2017-02-25] MEDS: FENOFIBRATE 145 MG TAB PO SCH (08:51)
[2017-02-25] MEDS: AMANTADINE HCL 100 MG CAP PO SCH (08:51)
[2017-02-25] MEDS: HYDROCHLOROTHIAZIDE 12.5 MG CAP PO SCH (08:52)
[2017-02-25] MEDS: VALSARTAN 160 MG TAB PO SCH (08:52)
[2017-02-25] MEDS: POLYETHYLENE GLYCOL 3350 17 GM PKT PO SCH (08:52)
[2017-02-25] MEDS: (Mirabegron [Myrbetriq] 50 MG) PO SCH (08:56)
--- NOTE | 2017-02-25 09:55 | SOAPPROG ---
SOAP Progress Note Assessment/Plan: 61-year-old male with impairments in mobility and self-care after a traumatic brain injury with associated subarachnoid and subdural hemorrhages from a fall Today's update: Patient participating well in therapies, medical issues are stable with no new concerns. 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 He has walked 200 feet with CGA and no device. He transfers with SBA to CGA and is noted to have some impulsivity. He climbed 18 stairs with bilateral rails and cues to slow down. Upper body dressing is done with setup or supervision, lower body occasional contact guard assist for balance. Toileting is done with SBA to CGA for balance with clothing management. OT administered the MVPT which demonstrated decreased visual processing and especially decreased speed of processing. * Continue PT and OT. * headache * Much improved. Has hydrocodone/APAP, using infrequently * Initiated low-dose amitriptyline for headache prevention, posttraumatic type headache. * cognitive impairment * Scored 14/30 on the SLUMS; increased to 25/30 as of 02/24/2017. Decreased memory. Improved initiative. * Initiated amantadine as a stimulant 02/18/2017. 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 PT and OT confirm improved alertness. Continue amantadine. This was discussed with patient's outpatient Neurologist Dr. Choi by Dr. Sheridan, who reports that he has been considering prescribing of stimulant in the past, and thinks amantadine or other stimulant would be a good choice. * Continue HAND CLOTH EXAMINER. 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 Continue to monitor. * Watch for dehydration * BPH * history of oligodendroglioma status post resection * encephalopathy, resolved * Due to interaction between gabapentin and oxycodone and tramadol * Will try low-dose hydrocodone as he has tolerated that at home in the past. * Depression. Per family's request discontinued escitalopram. They have noted his decline began coincident with starting this medication last September. * Observed for change in mood. Continues to make progress especially after initiation of amantadine, and potential to regain independence sufficient for discharge home good. Continue tentative discharge date of 03/03/2017. 02/16/17 11:17 02/18/17 08:32 02/25/17 09:52 Subjective: Chief complaint: Meal planning No acute events overnight. Patient denies any shortness of breath or chest pain , no new numbness, tingling, or weakness. He is working with occupational therapy on meal planning and goal for a kitchen safety evaluation today or tomorrow. He denies any new symptoms, not bothered by headache. Therapy reportedly going well Objective: Vital Signs Temp Pulse Resp BP Pulse Ox 36.4 C 62 16 125/68 H 93 02/25/17 06:14 02/25/17 06:14 02/25/17 06:14 02/25/17 08:52 02/25/17 06:14 02/24/17 02/25/17 02/26/17 05:59 05:59 05:59 Intake Total 1350 950 354 Output Total 1 150 Balance 1349 950 204 Physical Exam - Physical Exam General Appearance: alert, no apparent distress Respiratory: No respiratory distress, No accessory muscle use Cardiac/Chest: normal peripheral pulses, regular rate, rhythm, No edema Skin: normal color, warm/dry, No cyanosis Neuro/Psych: alert, normal mood/affect ICD10 Worksheet Patient Problems: Problems Problem Status Onset Abrasions of multiple sites Acute Altered mental status Acute Diverticulitis large intestine Acute Fall from standing Acute History of West Nile virus (WNV) infection Acute Intracranial hemorrhage Acute Tenderness of neck Acute Truncal ataxia Acute Urinary retention Acute
[2017-02-25] MEDS: GABAPENTIN 300 MG CAP PO SCH (19:27)
[2017-02-25] MEDS: AMITRIPTYLINE HCL 25 MG TAB PO SCH (19:27)
[2017-02-26] MEDS: POLYETHYLENE GLYCOL 3350 17 GM PKT PO SCH (08:37)
[2017-02-26] MEDS: AMANTADINE HCL 100 MG CAP PO SCH (08:38)
[2017-02-26] MEDS: FENOFIBRATE 145 MG TAB PO SCH (08:38)
[2017-02-26] MEDS: HYDROCHLOROTHIAZIDE 12.5 MG CAP PO SCH (08:39)
[2017-02-26] MEDS: (Mirabegron [Myrbetriq] 50 MG) PO SCH (08:40)
[2017-02-26] MEDS: MULTIVITAMINS 1 EACH TAB PO SCH (08:40)
[2017-02-26] MEDS: PANTOPRAZOLE SODIUM 40 MG TAB PO SCH (08:40)
[2017-02-26] MEDS: VALSARTAN 160 MG TAB PO SCH (08:41)
--- NOTE | 2017-02-26 12:20 | SOAPPROG ---
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 He has walked 200 feet with CGA and no device. He transfers with SBA to [facility] and is noted to have some impulsivity. He climbed 18 stairs with bilateral rails and cues to slow down. Upper body dressing is done with setup or supervision, lower body occasional contact guard assist for balance. Toileting is done with SBA to CGA for balance with clothing management. OT administered the MVPT which demonstrated decreased visual processing and especially decreased speed of processing. * Continue PT and OT. * headache * Much improved. Has hydrocodone/APAP; not used for 2 days. * Initiated low-dose amitriptyline for headache prevention, posttraumatic type headache. * cognitive impairment * Scored 25/30 on the SLUMS as of 02/24/2017. Decreased memory. Improved initiative. * Initiated amantadine as a stimulant 02/18/2017. 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 PT and OT confirm improved alertness. Continue amantadine. * Continue SIGNAL PERSON. 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 Continue to monitor. * Watch for dehydration * BPH * history of oligodendroglioma status post resection * encephalopathy, resolved * Due to interaction between gabapentin and oxycodone and tramadol * Will try low-dose hydrocodone as he has tolerated that at home in the past. * Depression. Per family's request will discontinue escitalopram. They have noted his decline began coincident with starting this medication last September. * Observed for change in mood. Plan: Cont Dr Sheridan rehab treatment plan 02/26/17 12:17 Subjective: No new problems or C/O's Objective: Vital Signs Temp Pulse Resp BP Pulse Ox 36.5 C 68 16 111/79 95 02/26/17 10:24 02/26/17 08:00 02/26/17 08:00 02/26/17 08:41 02/26/17 08:00 02/25/17 02/26/17 02/27/17 05:59 05:59 05:59 Intake Total 950 828 837 Output Total 150 Balance 950 678 837 Physical Exam - Physical Exam General Appearance: alert, no apparent distress Neck: supple Respiratory: lungs clear Cardiac/Chest: regular rate, rhythm Skin: normal color, warm/dry Neuro/Psych: alert, normal mood/affect, oriented x 3, abnormal gait (making good progress), motor weakness, sensory deficit, cognition abnormalities, other (No acute changes) ICD10 Worksheet Patient Problems: Problems Problem Status Onset Abrasions of multiple sites Acute Altered mental status Acute Diverticulitis large intestine Acute Fall from standing Acute History of West Nile virus (WNV) infection Acute Intracranial hemorrhage Acute Tenderness of neck Acute Truncal ataxia Acute Urinary retention Acute
[2017-02-26] MEDS: ACETAMINOPHEN 500 MG TAB PO PRN (16:01)
[2017-02-26] MEDS: GABAPENTIN 300 MG CAP PO SCH (20:07)
[2017-02-26] MEDS: HYDROCODONE/APAP 5/325 TAB PO PRN (20:08)
[2017-02-26] MEDS: AMITRIPTYLINE HCL 25 MG TAB PO SCH (20:08)
[2017-02-27] MEDS: PANTOPRAZOLE SODIUM 40 MG TAB PO SCH (08:16)
[2017-02-27] MEDS: FENOFIBRATE 145 MG TAB PO SCH (08:16)
[2017-02-27] MEDS: MULTIVITAMINS 1 EACH TAB PO SCH (08:16)
[2017-02-27] MEDS: AMANTADINE HCL 100 MG CAP PO SCH (08:16)
[2017-02-27] MEDS: (Mirabegron [Myrbetriq] 50 MG) PO SCH (08:16)
[2017-02-27] MEDS: POLYETHYLENE GLYCOL 3350 17 GM PKT PO SCH (08:17)
[2017-02-27] MEDS: VALSARTAN 160 MG TAB PO SCH (08:18)
[2017-02-27] MEDS: HYDROCHLOROTHIAZIDE 12.5 MG CAP PO SCH (08:19)
--- NOTE | 2017-02-27 10:34 | HOSPPROG ---
Hospitalist Progress Note Assessment/Plan: Assessment: 61 yo man p/w mechanical fall c/b acute SAH/SDH Plan: # Subarachnoid and subdural hemorrhages. Acute, s/p mechanical fall w/ resultant TBI - Functional independence measure 91 as of 02/24/2017. He has walked 200 feet with CGA and no device. He transfers with SBA to CGA and is noted to have some impulsivity. He climbed 18 stairs with bilateral rails and cues to slow down. Upper body dressing is done with setup or supervision, lower body occasional contact guard assist for balance. Toileting is done with SBA to CGA for balance with clothing management. OT administered the MVPT which demonstrated decreased visual processing and especially decreased speed of processing. - Continue PT and OT. - Amitriptyline and Hydrocodone for post-traumatic headaches # Cognitive impairment. Patient has good insight - Scored 25/30 on the SLUMS as of 02/24/2017. Decreased memory. Improved initiative. - Initiated amantadine as a stimulant 02/18/2017. 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 PT and OT confirm improved alertness. Continue amantadine. - Continue CROWN POUNCER. # History of West Nile encephalitis with baseline impairment # Hypertension. Chronic, SBP 110-120 - Continue hydrochlorothiazide and valsartan. Continue to monitor. # BPH. Chronic, urinating well # History of oligodendroglioma status post resection # Acute encephalopathy, resolved - Due to toxic interaction between gabapentin and oxycodone and tramadol, now discontinued - trialing low-dose hydrocodone as he has tolerated that at home in the past. # Depression. Per family's request patient has discontinued escitalopram. They have noted his decline began coincident with starting this medication last September. - Observed for change in mood. Diet. Regular PPx. Low risk, TEDs Code. Full Dispo. Ongoing therapy required Subjective: patient reports he is feeling well, inspired by his therapy, excited to watch [employer] game today Objective: Vital Signs Temp Pulse Resp BP Pulse Ox 36.5 C 70 18 119/70 95 02/26/17 19:35 02/26/17 19:35 02/26/17 19:35 02/27/17 08:19 02/26/17 19:35 02/26/17 02/27/17 02/28/17 05:59 05:59 05:59 Intake Total 828 1637 Output Total 150 Balance 678 1637 - Physical Exam Constitutional: no apparent distress, appears nourished, not in pain, No uncomfortable Eyes: PERRL, anicteric sclera, EOMI Ears, Nose, Mouth, Throat: moist mucous membranes, hearing normal, ears appear normal, no oral mucosal ulcers Cardiovascular: regular rate and rhythym, no murmur, rub, or gallop, No edema Respiratory: no respiratory distress, no rales or rhonchi, clear to auscultation Gastrointestinal: normoactive bowel sounds, soft, non-tender abdomen, no palpable masses Musculoskeletal: full muscle strength, No muscular tenderness Neurologic: AAOx3, sensation intact bilaterally, No weakness (motor 5/5 bilat UE /LE), No facial droop Psychiatric: interacting appropriately, not anxious, not encephalopathic, thought process linear ICD10 Worksheet Patient Problems: Problems Problem Status Onset Abrasions of multiple sites Acute Altered mental status Acute Diverticulitis large intestine Acute Fall from standing Acute History of West Nile virus (WNV) infection Acute Intracranial hemorrhage Acute Tenderness of neck Acute Truncal ataxia Acute Urinary retention Acute
[2017-02-27] MEDS: CALCIUM CARBONATE 500 MG CHEWABLE TAB PO PRN (13:49)
[2017-02-27] MEDS: AMITRIPTYLINE HCL 25 MG TAB PO SCH (20:02)
[2017-02-27] MEDS: GABAPENTIN 300 MG CAP PO SCH (20:02)
[2017-02-27] MEDS: HYDROCODONE/APAP 5/325 TAB PO PRN (20:02)
[2017-02-28] MEDS: MULTIVITAMINS 1 EACH TAB PO SCH (08:51)
[2017-02-28] MEDS: AMANTADINE HCL 100 MG CAP PO SCH (08:51)
[2017-02-28] MEDS: PANTOPRAZOLE SODIUM 40 MG TAB PO SCH (08:55)
[2017-02-28] MEDS: HYDROCHLOROTHIAZIDE 12.5 MG CAP PO SCH (08:55)
[2017-02-28] MEDS: FENOFIBRATE 145 MG TAB PO SCH (08:55)
[2017-02-28] MEDS: VALSARTAN 160 MG TAB PO SCH (08:55)
[2017-02-28] MEDS: (Mirabegron [Myrbetriq] 50 MG) PO SCH (08:55)
[2017-02-28] MEDS: POLYETHYLENE GLYCOL 3350 17 GM PKT PO SCH (08:56)
--- NOTE | 2017-02-28 11:54 | HOSPPROG ---
Hospitalist Progress Note Assessment/Plan: Assessment: 61 yo man p/w mechanical fall c/b acute SAH/SDH Plan: # Subarachnoid and subdural hemorrhages. Acute, s/p mechanical fall w/ resultant TBI - Functional independence measure 91 as of 02/24/2017. He has walked 200 feet with CGA and no device. He transfers with SBA to CGA and is noted to have some impulsivity. He climbed 18 stairs with bilateral rails and cues to slow down. Upper body dressing is done with setup or supervision, lower body occasional contact guard assist for balance. Toileting is done with SBA to CGA for balance with clothing management. OT administered the MVPT which demonstrated decreased visual processing and especially decreased speed of processing. - Continue PT and OT. - Amitriptyline and Hydrocodone for post-traumatic headaches # Cognitive impairment. Patient has good insight and has been participating w/ therapy well - Scored 25/30 on the SLUMS as of 02/24/2017. Decreased memory. Improved initiative. - Initiated amantadine as a stimulant 02/18/2017. 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 PT and OT confirm improved alertness. Continue amantadine. - Continue STRIPER MACHINE. # History of West Nile encephalitis with baseline impairment # Hypertension. Chronic, SBP 130s - Continue hydrochlorothiazide and valsartan. Continue to monitor. # BPH. Chronic, urinating well # History of oligodendroglioma status post resection # Acute encephalopathy, resolved - Due to toxic interaction between gabapentin and oxycodone and tramadol, now discontinued - trialing low-dose hydrocodone as he has tolerated that at home in the past. # Depression. Per family's request patient has discontinued escitalopram. They have noted his decline began coincident with starting this medication last September. - Observed for change in mood, patient interacting very positively over these past 2 days - requested melatonin 6mg HS, start tonight Diet. Regular PPx. Low risk, TEDs Code. Full Dispo. Ongoing therapy required, nearing safe discharge plan Subjective: patient reports he is physically comfortable, continues to work w/ therapy, would like a sleep aid, urine/BM well Objective: Vital Signs Temp Pulse Resp BP Pulse Ox 36.5 C 65 18 132/83 H 95 02/28/17 08:00 02/28/17 08:00 02/28/17 08:00 02/28/17 08:55 02/28/17 08:00 02/27/17 02/28/17 03/01/17 05:59 05:59 05:59 Intake Total 1637 960 Balance 1637 960 - Physical Exam Constitutional: no apparent distress, appears nourished, not in pain Eyes: PERRL, anicteric sclera, EOMI Ears, Nose, Mouth, Throat: moist mucous membranes, hearing normal, ears appear normal, no oral mucosal ulcers Cardiovascular: regular rate and rhythym, no murmur, rub, or gallop, No edema Respiratory: no respiratory distress, no rales or rhonchi, clear to auscultation Gastrointestinal: normoactive bowel sounds, soft, non-tender abdomen, no palpable masses Neurologic: AAOx3, sensation intact bilaterally, CN II-XII Intact, No weakness ( motor 5/5 bilate LE) Psychiatric: interacting appropriately, not anxious, not encephalopathic, thought process linear ICD10 Worksheet Patient Problems: Problems Problem Status Onset Diverticulitis large intestine Acute History of West Nile virus (WNV) infection Acute Truncal ataxia Acute Intracranial hemorrhage Acute Abrasions of multiple sites Acute Fall from standing Acute Urinary retention Acute Tenderness of neck Acute Altered mental status Acute
[2017-02-28] MEDS: MELATONIN 3 MG TAB PO SCH (20:49)
[2017-02-28] MEDS: GABAPENTIN 300 MG CAP PO SCH (20:49)
[2017-02-28] MEDS: AMITRIPTYLINE HCL 25 MG TAB PO SCH (20:49)
[2017-02-28 21:24] VITALS: RESP 16
[2017-03-01] MEDS: AMANTADINE HCL 100 MG CAP PO SCH (08:27)
[2017-03-01] MEDS: FENOFIBRATE 145 MG TAB PO SCH (08:27)
[2017-03-01] MEDS: HYDROCHLOROTHIAZIDE 12.5 MG CAP PO SCH (08:28)
[2017-03-01] MEDS: VALSARTAN 160 MG TAB PO SCH (08:29)
[2017-03-01] MEDS: MULTIVITAMINS 1 EACH TAB PO SCH (08:29)
[2017-03-01] MEDS: PANTOPRAZOLE SODIUM 40 MG TAB PO SCH (08:29)
[2017-03-01] MEDS: (Mirabegron [Myrbetriq] 50 MG) PO SCH (08:29)
[2017-03-01] MEDS: POLYETHYLENE GLYCOL 3350 17 GM PKT PO SCH (08:30)
--- NOTE | 2017-03-01 11:26 | SOAPPROG ---
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 He has walked 200 feet with CGA and no device. He transfers with SBA to [facility] and is noted to have some impulsivity. He climbed 18 stairs with bilateral rails and cues to slow down. Upper body dressing is done with setup or supervision, lower body occasional contact guard assist for balance. Toileting is done with SBA to CGA for balance with clothing management. OT administered the MVPT which demonstrated decreased visual processing and especially decreased speed of processing. * Continue PT and OT. * headache * Much improved. Has hydrocodone/APAP; not used for 2 days, since 02/27/17. * Initiated low-dose amitriptyline for headache prevention, posttraumatic type headache. * cognitive impairment * Scored 14/30 on the SLUMS; increased to 25/30 as of 02/24/2017. Decreased memory. Improved initiative. * Initiated amantadine as a stimulant 02/18/2017. [employer] [employer]. PT and OT confirm improved alertness. Continue amantadine. This was discussed with patient's outpatient Neurologist Dr. Choi, who reports that he has been considering prescribing of stimulant in the past, and thinks amantadine or other stimulant would be a good choice. * Continue [employer] [address] [employer]. 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 Continue to monitor. * Watch for dehydration * BPH * history of oligodendroglioma status post resection * encephalopathy, resolved * Due to interaction between gabapentin and oxycodone and tramadol * Will try low-dose hydrocodone as he has tolerated that at home in the past. * Depression. Per family's request will discontinue escitalopram. They have noted his decline began coincident with starting this medication last September. * Observed for change in mood. Continues to make progress especially after initiation of amantadine, and potential to regain independence sufficient for discharge home good. Discharge date of 03/02/2017. 03/01/17 11:24 Subjective: No complaints. Planning to go home tomorrow. Objective: Vital Signs Temp Pulse Resp BP Pulse Ox 36.4 C 66 16 102/69 94 03/01/17 06:38 03/01/17 06:38 03/01/17 06:38 03/01/17 08:29 03/01/17 06:38 02/28/17 03/01/17 03/02/17 05:59 05:59 05:59 Intake Total 960 1000 Balance 960 1000 Physical Exam - Physical Exam General Appearance: WD/WN, alert, no apparent distress Respiratory: No respiratory distress, No accessory muscle use Skin: normal color, warm/dry Neuro/Psych: alert, normal mood/affect, oriented x 3, abnormal gait (Slightly wide base, short steps. Need some guidance by Physical therapy to walk-in straight line.) ICD10 Worksheet Patient Problems: Problems Problem Status Onset Abrasions of multiple sites Acute Altered mental status Acute Diverticulitis large intestine Acute Fall from standing Acute History of West Nile virus (WNV) infection Acute Intracranial hemorrhage Acute Tenderness of neck Acute Truncal ataxia Acute Urinary retention Acute
[2017-03-01 19:45] VITALS: TEMP 97.7
[2017-03-01] MEDS: MELATONIN 3 MG TAB PO SCH (19:46)
[2017-03-01] MEDS: AMITRIPTYLINE HCL 25 MG TAB PO SCH (19:46)
[2017-03-01] MEDS: GABAPENTIN 300 MG CAP PO SCH (19:47)
[2017-03-02] MEDS: VALSARTAN 160 MG TAB PO SCH (08:44)
[2017-03-02 08:45] VITALS: BP 122/80; PULSE 83; O2SAT 99
[2017-03-02] MEDS: HYDROCHLOROTHIAZIDE 12.5 MG CAP PO SCH (08:45)
[2017-03-02] MEDS: PANTOPRAZOLE SODIUM 40 MG TAB PO SCH (08:45)
[2017-03-02] MEDS: FENOFIBRATE 145 MG TAB PO SCH (08:45)
[2017-03-02] MEDS: MULTIVITAMINS 1 EACH TAB PO SCH (08:45)
[2017-03-02] MEDS: AMANTADINE HCL 100 MG CAP PO SCH (08:46)
[2017-03-02] MEDS: (Mirabegron [Myrbetriq] 50 MG) PO SCH (08:46)
[2017-03-02] MEDS: POLYETHYLENE GLYCOL 3350 17 GM PKT PO SCH (11:26)
--- NOTE | 2017-03-02 14:27 | GDS ---
[f rep st] DISCHARGE SUMMARY ADMITTING DIAGNOSIS: Debility, status post fall with closed head injury, subarachnoid hemorrhage and intracranial hemorrhage. DISCHARGE DIAGNOSIS: Debility, status post fall with closed head injury, subarachnoid hemorrhage and intracranial hemorrhage. HISTORY AND HOSPITAL COURSE: This patient was readmitted to inpatient rehabilitation on 02/12/2017, after spending 2 days at [facility] for altered mental status. Altered mental status was caused by a combination of medications including oxycodone and gabapentin. With improved alertness, he was able to participate better in therapies. He had steady improvement in his function with functional independence measure improving from 80 on 02/10/2017, to 85 on 02/17/2017, and 91 on 02/24/2017. These numbers are all within the range of assisted living facility level of function, but he had improving independence. Due to continuing issues around alertness, he was begun on amantadine at 100 mg per day on 02/18/2017; he showed no adverse effect but improved alertness and improved participation in therapies. His score on the [facility] Mental Status Exam improved from 14/30 to 25/30 as of 02/24/2017, but he continued to have decreased memory. He showed improved initiative. He was able to ambulate 300 feet with a trekking pole with standby assist and occasional contact guard assist to correct posture. He tended to exhibit excessive forward lean and required cuing to correct. He was able to climb 12 stairs with bilateral rails and cues for safety and for sequencing. Regarding activities of daily living, dressing, bathing, and toileting were accomplished with modified independence using a device. OT administered the MVPT which demonstrated decreased visual processing speed. He had a post traumatic headache. Amitriptyline was initiated for prevention. He had much reduced need for pain medications subsequently, and his last dose of the hydrocodone/acetaminophen combination was 02/27/2017. Hypertension was well controlled with hydrochlorothiazide and valsartan. At family's request, escitalopram was discontinued and he did not show return of depressive symptoms. PHYSICAL EXAM: On the day of discharge: VITAL SIGNS: Blood pressure is 122/80 , heart rate is 83, respiratory rate is 16, oxygen saturation is 99% on room air. GENERAL: This is a well-nourished, well-developed man lying in bed between therapy sessions, cooperative and in no acute distress. HEART: There is regular rate and rhythm with no murmurs, rubs, or gallops. LUNGS: Clear to auscultation bilaterally. ABDOMEN: Soft, nontender, nondistended with normoactive bowel sounds. NEUROLOGIC: He is alert and oriented x3. Cranial nerves 2-12 are grossly intact. There is no focal weakness. He has a mildly abnormal gait using a trekking pole. It is slightly wide-based with slow steps. LABORATORIES AND STUDIES DURING HIS STAY: CBC was done on 02/11/2017, and he had a mildly elevated white blood cell count of 10.77. Serum chemistry on revealed slight dehydration with a BUN of 25 and creatinine 1.2; otherwise, renal function and electrolytes were within normal limits. Urinalysis was completely normal on 02/19/2017. CONDITION UPON DISCHARGE: Good. ACTIVITY: Ad cruz but he should have supervision with mobility related activities of daily living. DIET: Regular. DATE OF NEXT APPOINTMENT: He has followup scheduled with neurologist, Dr. Gino Choi; with [facility]; with primary care provider, Dr. Alexander Monge; and with neurosurgeon, Dr. Twin Kaufman. MEDICATIONS AT DISCHARGE: 1. Acetaminophen 1000 mg p.o. q.8 hours p.r.n. 2. Hydrocodone/acetaminophen 1 tab q.4 hours p.r.n. 3. Amantadine 100 mg p.o. daily. 4. Amitriptyline 25 mg p.o. at bedtime. 5. Calcium carbonate 500 mg p.o. three times daily p.r.n. 6. Fenofibrate 72.5 mg p.o. daily. 7. Gabapentin 600 mg p.o. at bedtime. 8. Hydrochlorothiazide 12.5 mg p.o. daily. 9. Melatonin 6 mg p.o. at bedtime. 10. Mirabegron 50 mg p.o. daily. 11. Multivitamin 1 p.o. daily. 12. Pantoprazole 40 mg p.o. daily. 13. Polyethylene glycol daily p.r.n. 14. Senna twice daily p.r.n. 15. Valsartan 160 mg p.o. daily. ISSUES TO BE ADDRESSED AT FOLLOWUP: 1. Functional status: He will continue occupational therapy, physical therapy , and speech and language pathology. He can follow up with primary care regarding his progress. 2. Hypertension is well controlled. He can follow up with primary care. 3. Consequences of traumatic brain injury. He will have a followup with Neurosurgery, Dr. Kaufman. /[id number]/MODL MTDD
--- NOTE | 2017-03-05 12:15 | PDOREHIP ---
Admission [facility] - Admission - 3 Day Assessment Period Admission Date/Day 1: 02/12/17 Day 2: 02/13/17 Day 3: 02/14/17 Discharge [facility] - Discharge - 3 Day Assessment Period 2 Days Prior to Anticipated Discharge Date: 02/28/17 1 Day Prior to Anticipated Discharge Date: 03/01/17 Anticipated Discharge Date: 03/02/17 - Discharge Skin Conditions Unhealed Pressure Ulcer (1 or more/Stage 1 or >)-Discharge: 0. No
== END 2017-03-02 14:26 | disposition home health service (06) | DRG 945 ==
LOC: BREH 14:25
PROVIDERS: ADMIT Internal Medicine; ATTEND Internal Medicine
PROC: F0636ZZ Communicative/Cognitive Integration Skills Treatment of Neurological System - Whole Body (ICD-10-PCS; principal; 2017-02-12)
PROC: F07M3ZZ Motor Function Treatment of Musculoskeletal System - Whole Body (ICD-10-PCS; principal; 2017-02-12)
PROC: F08Z7ZZ Vocational Activities and Functional Community or Work Reintegration Skills Treatment (ICD-10-PCS; principal; 2017-02-12)
DX: S06.5X0D Traumatic subdural hemorrhage without loss of consciousness, subsequent encounter (principal); S06.6X0D Traumatic subarachnoid hemorrhage without loss of consciousness, subsequent encounter; W01.0XXD Fall on same level from slipping, tripping and stumbling without subsequent striking against object, subsequent encounter; R53.81 Other malaise; R41.82 Altered mental status, unspecified; Z86.61 Personal history of infections of the central nervous system; R41.89 Other symptoms and signs involving cognitive functions and awareness; G81.94 Hemiplegia, unspecified affecting left nondominant side; R27.0 Ataxia, unspecified; M24.50 Contracture, unspecified joint; Z85.841 Personal history of malignant neoplasm of brain; I10 Essential (primary) hypertension; E78.5 Hyperlipidemia, unspecified; F32.9 Major depressive disorder, single episode, unspecified; N40.0 Benign prostatic hyperplasia without lower urinary tract symptoms; K21.9 Gastro-esophageal reflux disease without esophagitis; G43.909 Migraine, unspecified, not intractable, without status migrainosus
CPT/HCPCS: 92507-GN; 92522-GN; 92526-GN; 92610-GN; 97110-GO; 97110-GP; 97112-GO; 97112-GP; 97116-GP; 97164-GP; 97168-GO; 97530-GO; 97530-GP; 97532-GO; 97535-GO; 97542-GP

== ENCOUNTER → 2017-06-03 | Outpatient (CLI) | payer OTHER ==
[~2017-06-03] MED LIST: GADOBUTROL 10 ML VIAL IVP ONE
== END ==
LOC: FIMAGING 14:44
PROVIDERS: ATTEND Internal Medicine Hematology & Oncology
DX: Z08 Encounter for follow-up examination after completed treatment for malignant neoplasm (principal); Z85.841 Personal history of malignant neoplasm of brain; I62.00 Nontraumatic subdural hemorrhage, unspecified
CPT/HCPCS: 70553; A9585

== ENCOUNTER 2017-06-08 08:32 | Inpatient (IN) | payer OTHER ==
[2017-06-08] MEDS ORDERED: IOPAMIDOL (ISOVUE 370) 100 ML BTL IV ONE (09:12)
--- NOTE | 2017-06-08 09:17 | EDPHY ---
HPI/HX/ROS/PE/MDM Narrative: CHIEF COMPLAINT: Migraines for 3 days, history of brain injury HISTORY OF PRESENT ILLNESS: The patient is a 62 y/o male with a complex neurological history arriving to the emergency department with his for migraines with right-sided numbness and speech disturbances for the past three days. He had a frontal lobe resection to treat brain cancer. Prior to the cancer diagnosis he had petit mal seizures but since he has not had seizures and is not on anticonvulsants. In 2012, he had [place] with encephalitis. 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 In January 2017 , he fell, resulting in a bilateral frontal lobe bleed. He has a history of migraines with visual disturbances. He was recently evaluated for a sinus infection and given a brain MRI for a smell that only he can smell. MRI was normal. On Wednesday, 4 days ago, he developed a migraine with right-sided numbness and speech difficulties. He had developed a migraine on Wednesday, which was normal for him. Wednesday, his migraine was accompanied by a headache. This morning, he had a migraine with right-sided numbness, headache, and speech difficulty which mostly cleared after an hour. He continues to have associated global weakness. His speech difficulty is described as producing unintelligible speech. The visual disturbances are "shady" vision. He has a history of hypertension and double vision. He denies recent trauma. He denies history of diabetes, or stroke. He recently started modafinil and restarted Lexapro. He does not take anticoagulants daily. No fever, chills, chest pain, shortness of breath, palpitations, vomiting, diarrhea, urinary complaints, lightheadedness. REVIEW OF SYSTEMS: Aside from elements discussed in the HPI, a comprehensive 10-point review of systems was reviewed and is negative. PAST MEDICAL HISTORY: Brain cancer with frontal lobe resection, [place] with encephalitis, bilateral frontal lobe bleed, diverticulitis, hypertension, double vision SOCIAL HISTORY: at bedside, lives in [place], PCP: Crispin VITAL SIGNS: Reviewed by me GENERAL: Well-developed, well-nourished, resting comfortably in no respiratory distress. Pleasant HEENT: Atraumatic. Eyes: No icterus, no injection. Mouth: moist mucous membranes. No erythema or lesions. Neck: supple with no adenopathy. LUNGS: Clear to auscultation bilaterally, no wheezes, rhonchi or rales. CARDIAC: Regular rate and rhythm, no rubs, murmurs or gallops. ABDOMEN: Soft, nontender, nondistended, bowel sounds normal. BACK: No CVA tenderness. EXTREMITIES: No trauma. No edema. Range of motion is normal throughout. NEURO: Alert and oriented. Difficulty with finger to nose and heel to clemente bilaterally. Left-side drift at baseline. SKIN: Warm and dry, no rash. PSYCHIATRIC: Normal mentation, no agitation. ED Course: The patient presents with new speech difficulty and headache with migraines. A recent MRI was normal. He recently started modafinil and restarted Lexapro. Plan for CT, CTA, chest X-ray, EKG, blood work including coagulation and troponin, and 1 L fluids. 10:14 AM- The CT shows a left frontal subdural. I will consult with neurosurgery as to the best course of action. I informed the patient and his of the results of his workup. On exam her remains at baseline. 10:28 AM- Dr. Del Rio evaluated this patient. He feels that the bleed may not be the cause of the symptoms. Due to the transience of the symptoms, epileptic activity may be the root of the symptoms. Plan for him to start Keppra and TXA. Requests medicine admit with neurosurgery following. The hospitalist service has been called. 10:34 AM- I spoke to the hospitalist service and they agree to admit him. Dr. Escudero will be the admitting doctor. Study: CT of the head Indication: Migraines with speech difficulty and right sided numbness Results: CT scan of the body parts was obtained. The results of the study show left frontal subdural bleed. The study was read by the radiologist, Dr. Neely. I viewed the images myself on the PACS system. 12-LEAD EKG: Please see the full report in [employer]. My interpretation: Normal sinus rhythm MDM: Diff dx considered included CVA, TIA, intracranial hemorrhage, seizure, electrolyte abnormality, infection, drug or alcohol effects. - Data Points Imaging Results: Imaging Impressions Chest X-Ray 06/08/17 09:08 Impression: No acute findings in the chest. Head CT 06/08/17 09:09 Impression: 1. Left frontal subacute subdural hematoma measuring 5 mm without significant mass effect. 2. Old right frontal postsurgical encephalomalacia cavity post tumor resection. 3. No midline shift or herniation. Findings and recommendations discussed with Emergency Department physician, Dr. Kimberley Marie at 1000 hours on June 08, 2017. Final report concurs with initial preliminary interpretation. Head CTA 06/08/17 09:09 Impression: 1. Moderate atherosclerotic stenosis in the right internal carotid artery 50 to 60%. 2. Mild atherosclerotic stenosis in the left internal carotid artery approximately 30%. 3. Small, but patent, bilateral vertebral arteries. 4. No complete occlusion or dissection. Measurement of carotid stenosis is based on the residual internal carotid diameter with [place] Symptomatic Carotid Endarterectomy Trial (NASCET) based stenosis levels. CT Angiogram of the Brain Clinical Indications: History of brain tumor resection. Intracranial hemorrhage in past, now with speech difficulty. Right arm and face numbness resolved. Technique: CT angiogram of the brain and neck was performed with the uneventful intravenous administration of 100 mL Isovue-370 contrast. Multiplanar reconstructions including 3D reconstructions performed and evaluated on [employer] workstation in order to better evaluate the [place] vessels. Images were manipulated by the radiologist at the computer workstation. Dose reduction techniques were utilized. Findings: Major vessels of the [place] are adequately displayed, demonstrating no evidence of aneurysm, vascular malformation, flow-limiting stenosis, or occlusion. Bilateral cavernous internal carotid arteries and vertebrobasilar system demonstrates no evidence of flow-limiting stenosis, aneurysm, occlusion, or dissection. Superior sagittal sinus, transverse sinuses , and major veins demonstrate no evidence of intraluminal thrombi. origin of bilateral vertebral arteries. Old right frontal lobe postsurgical encephalomalacia. Impression: Negative CT angiogram of the brain. Findings and recommendations discussed with Emergency Department physician, Dr. Kimberley Marie at 1000 hours on June 08, 2017. Final report concurs with initial preliminary interpretation. Neck CTA 06/08/17 09:09 Impression: 1. Moderate atherosclerotic stenosis in the right internal carotid artery 50 to 60%. 2. Mild atherosclerotic stenosis in the left internal carotid artery approximately 30%. 3. Small, but patent, bilateral vertebral arteries. 4. No complete occlusion or dissection. Measurement of carotid stenosis is based on the residual internal carotid diameter with [place] Symptomatic Carotid Endarterectomy Trial (NASCET) based stenosis levels. CT Angiogram of the Brain Clinical Indications: History of brain tumor resection. Intracranial hemorrhage in past, now with speech difficulty. Right arm and face numbness resolved. Technique: CT angiogram of the brain and neck was performed with the uneventful intravenous administration of 100 mL Isovue-370 contrast. Multiplanar reconstructions including 3D reconstructions performed and evaluated on [employer] workstation in order to better evaluate the [place] vessels. Images were manipulated by the radiologist at the computer workstation. Dose reduction techniques were utilized. Findings: Major vessels of the [place] are adequately displayed, demonstrating no evidence of aneurysm, vascular malformation, flow-limiting stenosis, or occlusion. Bilateral cavernous internal carotid arteries and vertebrobasilar system demonstrates no evidence of flow-limiting stenosis, aneurysm, occlusion, or dissection. Superior sagittal sinus, transverse sinuses , and major veins demonstrate no evidence of intraluminal thrombi. origin of bilateral vertebral arteries. Old right frontal lobe postsurgical encephalomalacia. Impression: Negative CT angiogram of the brain. Findings and recommendations discussed with Emergency Department physician, Dr. Kimberley Marie at 1000 hours on June 08, 2017. Final report concurs with initial preliminary interpretation. Imaging: Discussed imaging studies w/ bank examiner Radiologist, I viewed and interpreted images myself Laboratory Results: Laboratory Results 06/08/17 09:05 06/08/17 09:05 06/08/17 06/08/17 06/08/17 09:05 09:05 09:05 WBC 5.63 10^3/uL 10^3/uL (3.80-9.50) RBC 5.40 10^6/uL 10^6/uL (4.40-6.38) Hgb 16.1 g/dL g/dL (13.7-17.5) POC Hgb Hct 46.7 % % (40.0-51.0) POC Hct MCV 86.5 fL fL (81.5-99.8) MCH 29.8 pg pg (27.9-34.1) MCHC 34.5 g/dL g/dL (32.4-36.7) RDW 12.8 % % (11.5-15.2) Plt Count 214 10^3/uL 10^3/uL (150-400) MPV 9.3 fL fL (8.7-11.7) Neut % (Auto) 63.8 % % (39.3-74.2) Lymph % (Auto) 23.3 % % (15.0-45.0) Burnett % (Auto) 10.7 % % (4.5-13.0) Eos % (Auto) 1.4 % % (0.6-7.6) Baso % (Auto) 0.4 % % (0.3-1.7) Nucleat RBC Rel Count 0.0 % % (0.0-0.2) Absolute Neuts (auto) 3.60 10^3/uL 10^3/uL (1.70-6.50) Absolute Lymphs (auto) 1.31 10^3/uL 10^3/uL (1.00-3.00) Absolute Monos (auto) 0.60 10^3/uL 10^3/uL (0.30-0.80) Absolute Eos (auto) 0.08 10^3/uL 10^3/uL (0.03-0.40) Absolute Basos (auto) 0.02 10^3/uL 10^3/uL (0.02-0.10) Absolute Nucleated RBC 0.00 10^3/uL 10^3/uL (0-0.01) Immature Gran % 0.4 % % (0.0-1.1) Immature Gran # 0.02 10^3/uL 10^3/uL (0.00-0.10) PT 12.8 SEC SEC (12.0-15.0) INR 0.94 (0.83-1.16) POC Sodium Sodium 140 mEq/L mEq/L (135-145) POC Potassium Potassium 4.1 mEq/L mEq/L (3.5-5.2) POC Chloride Chloride 103 mEq/L mEq/L (97-110) Carbon Dioxide 23 mEq/l mEq/l (22-31) Anion Gap 14 mEq/L mEq/L (8-16) POC BUN BUN 20 mg/dL mg/dL (7-23) Creatinine 1.2 mg/dL mg/dL (0.7-1.3) POC Creatinine Estimated GFR > 60 Glucose 108 mg/dL H mg/dL (70-100) POC Glucose Calcium 9.9 mg/dL mg/dL (8.5-10.4) Troponin I < 0.012 ng/mL ng/mL (0.000-0.034) 06/08/17 09:03 WBC RBC Hgb POC Hgb 14.6 gm/dL gm/dL (13.7-17.5) Hct POC Hct 43 % % (40-51) MCV MCH MCHC RDW Plt Count MPV Neut % (Auto) Lymph % (Auto) Burnett % (Auto) Eos % (Auto) Baso % (Auto) Nucleat RBC Rel Count Absolute Neuts (auto) Absolute Lymphs (auto) Absolute Monos (auto) Absolute Eos (auto) Absolute Basos (auto) Absolute Nucleated RBC Immature Gran % Immature Gran # PT INR POC Sodium 141 mEq/L mEq/L (135-145) Sodium POC Potassium 3.8 mEq/L mEq/L (3.3-5.0) Potassium POC Chloride 101 mEq/L mEq/L (97-110) Chloride Carbon Dioxide Anion Gap POC BUN 20 mg/dL mg/dL (7-23) BUN Creatinine POC Creatinine 1.3 mg/dL mg/dL (0.7-1.3) Estimated GFR Glucose POC Glucose 111 mg/dL H mg/dL (70-100) Calcium Troponin I Medications Given: Discontinued Medications Sodium Chloride (Ns) 1,000 mls @ 0 mls/hr IV ONCE ONE PRN Reason: Wide Open Stop: 06/08/17 09:19 Last Admin: 06/08/17 09:44 Dose: 1,000 mls Levetiracetam (Keppra) 750 mg PO EDNOW ONE Stop: 06/08/17 10:34 Last Admin: 06/08/17 10:52 Dose: Not Given Levetiracetam (Keppra) 750 mg PO EDNOW ONE Stop: 06/08/17 10:46 Last Admin: 06/08/17 10:51 Dose: 750 mg Point of Care Test Results: 06/08/17 09:03 POC Sodium 141 POC Potassium 3.8 POC Chloride 101 POC BUN 20 POC Creatinine 1.3 POC Glucose 111 H General Time Seen by Provider: 06/08/17 08:47 Initial Vital Signs: Initial Vital Signs Temperature (C) 36.5 C 06/08/17 08:42 Heart Rate 54 L 06/08/17 08:42 Respiratory Rate 16 06/08/17 08:42 Blood Pressure 144/84 H 06/08/17 08:42 O2 Sat (%) 97 06/08/17 08:42 O2 Delivery Mode Room Air Allergies/Adverse Reactions: dutasteride Allergy (Unknown, Unverified 06/08/17 11:04) BREAST MASS Lyqptfd-Hhi-Dtl Reductase Inhibitor [Hpslpft-Oba-Aou Reductase Inhibitors] Allergy (Unknown, Unverified 06/08/17 11:04) MUSCLE WEAKNESS lisinopril Allergy (Verified 06/08/17 11:04) COUGH mirtazapine [From Remeron] Allergy (Verified 06/08/17 11:04) HALLUCINATIONS Home Medications: Medication Instructions Recorded Melatonin [Melatonin 3 MG (*)] 6 mg PO HS tab 03/01/17 Mirabegron [Myrbetriq] 50 mg PO DAILY #30 tab.er.24h 03/01/17 Cholecalciferol Vit D3 [Vitamin D3 2,000 units PO DAILY 06/08/17 2000 units tab (OTC)] Escitalopram Oxalate [Lexapro 10 10 mg PO HS 06/08/17 MG] Fenofibrate [Tricor 145 mg (*)] 72.5 mg PO HS 06/08/17 Gabapentin [Neurontin 300 MG (*)] 300 mg PO HS 06/08/17 Herbals/Supplements -Info Only 1 ea PO DAILY 06/08/17 Modafinil [Provigil 100 mg (*)] 100 mg PO DAILY 06/08/17 Omeprazole 40 mg PO DAILY 06/08/17 Valsartan/Hydrochlorothiazide 1 each PO DAILY 06/08/17 [Diovan Hct 160-12.5 mg Tab] Hydrocodone/APAP 5/325 [[place] 1 - 2 tab PO Q4HRS PRN #30 tab 06/09/17 5/325 (*)] Tranexamic Acid 650 mg PO BID #60 tab 06/09/17 levETIRAcetam [Keppra 500 mg (*)] 750 mg PO BID #90 tab 06/09/17 Departure - Departure Disposition: [facility] Clinical Impression: Subdural bleeding Condition: Fair Report Scribed for: Kimberley Marie Report Scribed by: Jessica Meeks Date of Report: 06/08/17 Time of Report: 09:19 Physician Review and Approval Statement: Portions of this note were transcribed by a medical radiation therapist. I personally performed a history, physical exam, medical decision making, and confirmed accuracy of information the transcribed note.
[2017-06-08] MEDS ORDERED: NS 1,000 ML IV ONE (09:18)
[2017-06-08 09:19] LABS: PLATELET COUNT 214 10^3/uL (150-400)
[2017-06-08 09:26] LABS: INR 0.94 (0.83-1.16); PROTIME(PATIENT) 12.8 SEC (12.0-15.0)
--- NOTE | 2017-06-08 09:27 | CPEKG ---
Heart Rate: 54 RR Interval: 1111 P-R Interval: 164 QRSD Interval: 98 QT Interval: 460 QTC Interval: 436 P [place]: 55 QRS [place]: 48 T Wave [place]: 49 EKG Severity - NORMAL ECG - EKG Impression: SINUS RHYTHM Electronically Signed By: Hugo Self 10-Jun-2017 07:19:44
[2017-06-08] MEDS ORDERED: levETIRAcetam 500 MG TAB PO ONE (10:33)
[2017-06-08] MEDS ORDERED: levETIRAcetam 250 MG TAB PO ONE (10:45)
[2017-06-08] MEDS: TRANEXAMIC ACID 650 MG TAB PO SCH ×2 (11:29→20:05)
--- NOTE | 2017-06-08 11:29 | GCON ---
[f rep st] CONSULTATION NEUROSURGERY CONSULTATION CHIEF COMPLAINT: Worsening migraines and balance. HPI: The patient is a 62-year-old male patient who has a complex neurological history. He previously has undergone brain surgery with Dr. Kaufman, for brain tumor resection. 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 He has had a history of seizures in the past. In January 2017, he fell and had a bilateral frontal lobe hemorrhage. He was evaluated and seen at that time. He improved. More recently, he has been having abnormal sense of smell and taste and underwent an MRI for this. The MRI was performed last , and per report, was normal. Four days ago, while at home, he developed migraine with right-sided numbness and speech difficulties. His reports that typically when he gets migraines, they are on the left side, and so this was new for him. He has been taking lnoh-niw-slekisc migraine medications that helped for a time, but the next day he wakes up with continued headache. Here in the emergency room, patient has undergone a CT of the head, which demonstrates a small subdural hemorrhage and the Neurosurgery service subsequently consulted. On examination this afternoon, the patient states that he does feel pressure behind his right eye. He has also had this unusual sense of smell for several weeks and he just generally feels off. He has also had some nausea. He denies any fever, chills, shooting pains, vomiting, or other complaints. REVIEW OF SYSTEMS: Please see above-mentioned in the HPI. PAST MEDICAL HISTORY: Brain cancer, status post resection; West Nile encephalitis; bilateral frontal lobe hemorrhage; diverticulitis; hypertension; double vision. SOCIAL HISTORY: The patient lives in the area. His is at the bedside. FAMILY HISTORY: Noncontributory. PHYSICAL EXAMINATION: VITAL SIGNS: Blood pressure 145/85, heart rate 51, respirations 16, O2 sat is 94% on room air. GENERAL: This is a well-developed , well-nourished male patient. He is in no acute distress. NEUROLOGICAL: Cranial nerves 2-12 are grossly intact. Patient is awake, alert, and oriented x3. Motor examination of bilateral upper extremities is 5/5 for deltoid, triceps, biceps, and hand frameman and also 5/5 for bilateral lower extremities including hip flexion, flexion and extension of the knee, and plantar and dorsiflexion. He has 1+ bilateral brachioradialis and biceps reflexes. He has negative Gigi sign bilaterally. He has negative Babinski bilaterally. He has intact sensation throughout the normal dermatomal distribution of his body. LABORATORY: White blood cells 5.63, red blood cells 5.40, hemoglobin 16.1, hematocrit 46.7. PT 12.8, INR 0.94. Sodium 140, potassium 4.1, chloride 103, carbon dioxide 23, anion gap 14, BUN 20, creatinine 1.2, GFR greater than 60, glucose 108, calcium 9.9. Troponin less than 0.012. IMAGING: Head CT: Left frontal subacute subdural hematoma measuring 5 mm without significant mass effect. Old right frontal postsurgical encephalomalacia cavity post tumor resection. No midline shift or herniation. Head and Neck CTA: Mild atherosclerotic stenosis of the right internal carotid artery 50%-60%, mild atherosclerotic stenosis of left internal carotid artery, approximately 30%, small but patent bilateral vertebral arteries. No complete occlusion or dissection. CT angiogram of the brain: Negative CT angiogram of the brain. IMPRESSION: This is a 62-year-old male patient with a small left frontal subacute subdural hematoma. PLAN: The patient has a new-onset left-sided small subdural hematoma with no significant brain compression. This is likely the source of his symptoms. However, at this time, we would try to attempt to treat this conservatively. We placed the patient on some antiseizure medication in case some of his unilateral body numbness is related to seizure activity. We will place him on Keppra for this. I will also place him on tranexamic acid, if deemed an appropriate candidate, 650 mg b.i.d. until this hemorrhage has resolved. We did discuss the option of surgical intervention with the patient and his , but they would like to avoid this, which is reasonable. Currently, there is no indication for surgery, but should his symptoms fail to improve, surgery remains an option. The patient has a complex medical history and will be admitted to the medicine service. Neurosurgery will consult. We appreciate this consultation and we will continue found to follow along with this patient. Please contact the Neurosurgery service with any additional questions or concerns. The patient was seen by myself and Dr. Del Rio in the ER this morning. /[id number]/MODL MTDD
[2017-06-08] MEDS ORDERED: ACETAMINOPHEN/ASA/CAFFEINE 1 EACH TAB PO PRN (12:14)
[2017-06-08] MEDS ORDERED: ACETAMINOPHEN 325 MG TAB PO PRN (12:15)
[2017-06-08] MEDS ORDERED: [UNRECOGNIZED DRUG - OTHER] PO SCH (12:15)
[2017-06-08] MEDS ORDERED: ONDANSETRON 4 MG/2 ML VIAL IVP PRN (12:15)
[2017-06-08] MEDS ORDERED: VALSARTAN PO SCH (12:15)
[2017-06-08] MEDS ORDERED: ONDANSETRON DISINTEGRATING 4 MG TAB PO PRN (12:15)
[2017-06-08] MEDS ORDERED: HYDROCHLOROTHIAZIDE PO SCH (12:15)
[2017-06-08] MEDS: HYDROCHLOROTHIAZIDE 12.5 MG CAP PO SCH (12:52)
--- NOTE | 2017-06-08 12:55 | GHP ---
[f rep st] HISTORY AND PHYSICAL DATE OF ADMISSION: 06/08/2017 CHIEF COMPLAINT: Speech difficulties and right-sided arm numbness. HISTORY OF PRESENT ILLNESS: A 62-year-old man with a complicated neurologic history, which I will de tail below, presents with about 3-days of subtle neurologic changes. He started getting a headache l ast Wednesday. He normally gets migraines and initially attributed it to this. With his migraines, h willis sometimes gets some worsening left-sided weakness. However, with this headache he had some right a rm numbness. He additionally had some speech problems, which his characterizes mostly as aphasi a. He has a few month's history of some change in his sense of smell. He had an MRI because of this , 5-days ago, which did not show any evidence of a subdural hematoma. His says that he maybe bhatti s even slightly slower previously. 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 In the e mergency department, CT scan of his head showed new left-sided 5 mm subdural hematoma. This was suba cute. On repeat questioning, he does recall hitting his head. He has had no episodes of loss of consciousn ess. No tonic-clonic seizure activity. PAST MEDICAL/SURGICAL HISTORY: 1. Oligodendroglioma status post resection in 2006, status post chemo and XRT, told that he is in co mplete remission. 2. History of West Nile encephalitis with residual left-sided weakness. 3. History of strabismus, which was partially corrected as a child. 4. 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 5. Episode of encephalopathy during that time, which was attributed to narcotics. 6. Statin induced myopathy. 7. Hypertension. 8. Diverticulitis. 9. Appendectomy. 10. Esophageal reflux. MEDICATIONS: Please see medication reconciliation. ALLERGIES: He has multiple allergies, dutasteride, statins, Lisinopril, mirtazapine. SOCIAL HISTORY: He is accompanied by his . FAMILY HISTORY: No brain cancer. REVIEW OF SYSTEMS: A 10-point Review of Systems is conducted and is negative except per HPI. PHYSICAL EXAM: VITAL SIGNS: Blood pressure 122/80, heart rate 54, respiration rate 16, saturation 9 7% on room air. Temperature 36.5. GENERAL: This patient is a pleasant man who is resting comfortab ly, in no acute distress. HEENT: Shows him to have dysconjugate gaze, which is chronic. CARDIOVASC ULAR EXAM: Shows regular rate and rhythm. No murmurs, rubs, or gallops. PULMONARY: Lungs clear to auscultation bilaterally. ABDOMEN: Soft, nontender, nondistended. SKIN: Shows no rash. EXAM: Shows no Moss. NEUROLOGIC: Shows him to speak somewhat slowly. He is able to repeat short sente nces. He has no pronator drift. He is able to name different items. Motor is 4/5 in the left upper extremity, 5/5 in the right. He has mild subjective decreased sensation to light touch in the right arm. Lower extremities show 4/5 motor in the left leg, 5/5 in the right leg. PSYCHIATRIC EXAM: Roxi ws normal mood and affect. LABS: CBC is unremarkable. Basic metabolic panel is normal. Troponin is negative. DATA: 1. CT angiogram of the head and neck shows moderate right ICA atherosclerosis 50% to 60%. Mild left ICA atherosclerosis at 30%, small, but patent bilateral vertebral arteries. No complete occlusion o r dissection. 2. CT angiogram of the brain is normal. 3. CT head, which I personally viewed and interpreted, shows a 5 mm left-sided subdural hematoma. 4. ECG, which I personally viewed and interpreted, shows sinus rhythm. There are no acute ischemic changes. IMPRESSION AND PLAN: 1. Left subdural hematoma: Appreciate Neurosurgery's involvement. Plan for non-operative managemen t. Will check q.2 hours neuro checks, keep him in the step-down unit. He is getting tranexamic acid . Concern that some of the symptoms may be caused from partial seizure activity, agree with Trinh. 2. Neurologic deficits: He has deficits at baseline. He has some new right-sided deficits. Will f ollow q.2 hours neuro checks and apprise Neurosurgery if there are any significant changes. 3. We will avoid any blood thinners including aspirin, NSAIDs, anticoagulants. 4. History of West Nile encephalitis. 5. History of recent traumatic brain injury with bilateral frontal hemorrhages. 6. History of oligodendroglioma status post resection. 7. Bradycardia: Slightly slower than normal. I do not think this represents Josué's reflex at th is point. 8. Code status: He would like to be do not resuscitate. I confirmed this with the patient and his . 9. Venous thromboembolism risk: He is moderate. I will place him on sequential compression devices given the subdural hemorrhage. /[id number]/MODL
[2017-06-08] MEDS: HYDROCODONE/APAP 5/325 TAB PO PRN (14:02)
[2017-06-08] MEDS: VALSARTAN 160 MG TAB PO SCH (14:49)
[2017-06-08] MEDS: MODAFINIL 100 MG TAB PO SCH (14:49)
--- NOTE | 2017-06-08 15:20 | PDMN ---
Medical Necessity Medical necessity: Patient meets inpatient criteria per physician note and [facility] [place] -[place] Traumatic Brain Injury, Nonsurgical Treatment (new speech difficulties/ aphasia with R arm numbness and changing sense of smell; CT shows new L SDH; complicated neuro history involving brain tumor resection in 2006, West Nile with encephalitis in 2012 and recent TBI with bilateral frontal hemorrhages Jan/ Feb 2017; anticipated LOS > 2 midnights for non-operative management with q 2 hr neuro checks, starting Keppra for possible partial seizure activity.)
[2017-06-08] MEDS: Mirabegron [Myrbetriq] 50 MG PO SCH (19:16)
[2017-06-08] MEDS: levETIRAcetam 500 MG TAB PO SCH (20:04)
[2017-06-08] MEDS ORDERED: MELATONIN 3 MG TAB PO SCH (21:00)
[2017-06-08] MEDS ORDERED: FENOFIBRATE 145 MG TAB PO SCH (21:00)
[2017-06-08] MEDS ORDERED: GABAPENTIN 300 MG CAP PO SCH (21:00)
[2017-06-08] MEDS ORDERED: ESCITALOPRAM OXALATE 10 MG TAB PO SCH (21:00)
[2017-06-09] MEDS: HYDROCODONE/APAP 5/325 TAB PO PRN (02:08)
[2017-06-09 04:01] VITALS: PULSE 54
[2017-06-09 04:16] LABS: PLATELET COUNT 203 10^3/uL (150-400)
--- NOTE | 2017-06-09 07:15 | NEUSURGPN ---
Assessment/Plan: Assessment: 62 yo male that admitted with small SDH that has been stable on repeat imaging Plan: -SDH: pt with stable SDH seen on repeat CT head. No surgery recommended -recommend to continue with TXA 650 BID -CTA of head neg, CTA neck shows some stenosis of carotid -PT/OT/ST -ok for dc to home or floor per IM -warning signs given -call with any questions or concerns -pt understands and agrees Subjective: Awake and alert. NAD. Eating/drinking and voiding. No f/c/n/v/d. No neck/ chest/abd or gu complaints. Objective: AAO x 3, PERRLA/EOMI no droop CN 2-12 grossly intact +lt touch 5/5 BUE/BLE = Neuro Check Frequency: per routine Urinary Catheter in Place: No - Physician Discussed Patient with : [facility] Physical Exam - Vitals, I&O, Labs I and O 06/08/17 06/09/17 06/10/17 05:59 05:59 05:59 Intake Total 800 Balance 800 Intake: Oral (ml) 800 Other: Intake Quantity Yes Sufficient Number of Voids Toilet 1 Number of Stools Toilet 1 Vital Signs Temp Pulse Resp BP Pulse Ox 36.4 C 54 L 14 141/77 H 99 06/09/17 04:00 06/09/17 04:00 06/09/17 04:00 06/09/17 04:00 06/09/17 04:00 Laboratory Results 06/09/17 04:05 06/09/17 04:05 ICD10 Worksheet Patient Problems: Problems Problem Status Onset Subdural bleeding Acute Abrasions of multiple sites Acute Altered mental status Acute Diverticulitis large intestine Acute Fall from standing Acute History of West Nile virus (WNV) infection Acute Intracranial hemorrhage Acute Tenderness of neck Acute Truncal ataxia Acute Urinary retention Acute
[2017-06-09 07:58] VITALS: BP 100/60; RESP 12; TEMP 97.4; O2SAT 96
[2017-06-09] MEDS: MODAFINIL 100 MG TAB PO SCH (08:45)
[2017-06-09] MEDS: TRANEXAMIC ACID 650 MG TAB PO SCH (08:46)
[2017-06-09] MEDS: levETIRAcetam 500 MG TAB PO SCH (08:46)
[2017-06-09] MEDS ORDERED: PANTOPRAZOLE SODIUM 40 MG TAB PO SCH (09:00)
[2017-06-09] MEDS: Mirabegron [Myrbetriq] 50 MG PO SCH (09:32)
--- NOTE | 2017-06-09 09:51 | ASMTCASEMG ---
Living Arrangements What is your living Answers: With Spouse arrangement? Who do you live with? Type Of Residence What kind of residence do Answers: House you live in? Discharge Plan Comments Coordination Status Comments Notes: Patient is a 62yo male who was admitted for subdural hemorrhage, speech difficulties. OT/PT/SPL have been ordered. Awaiting therapy evals to determine d/c plan. CM will follow. Date Signed: 06/09/2017 09:50 AM Electronically Signed By:Marie Gray LCSW
[2017-06-09] MEDS: VALSARTAN 160 MG TAB PO SCH (10:25)
[2017-06-09] MEDS: HYDROCHLOROTHIAZIDE 12.5 MG CAP PO SCH (10:25)
--- NOTE | 2017-06-09 11:39 | GDS ---
[f rep st] DISCHARGE SUMMARY DISCHARGE DIAGNOSES: 1. Acute subdural hemorrhage. 2. Likely seizure activity in the setting of subdural hematoma. 3. Complicated neurologic history, including an oligodendroglioma, which was resected in 2006, West Nile encephalitis, as well as a recent traumatic brain injury, with bilateral frontal hemorrhages, in January to February of 2017. HOSPITAL COURSE: A 62-year-old man, admitted with headache, as well as right-sided mild neurologic d eficits. CT scan in the emergency department showed a small left-sided subdural hematoma. Seen by Sophie king, who recommended tranexamic acid for his subdural, and Keppra for likely seizure activity causing some of his neurologic deficits. He was started on these. Monitored in the ICU, without an y significant neurologic change overnight. Seen by Neurosurgery the day after admission, who is comf ortable with discharge home at this time given his clinical stability. Recommend 30 days of tranexam ic acid at 650 mg twice daily. I have written for this. Also recommend at least 30 days of Keppra, for which I have also written. I have written him a prescription to have a CT scan of his head done in about 30 days, and to follow up with Dr. Henrique Narvaez shortly thereafter. He has all this informat ion. He has been seen by Physical Therapy, who feels that, although he is slightly unsteady, that th is is probably close to his baseline. For the next few days he will be accompanied by his 24 ho urs a day. She will bring him back to the emergency department for any neurologic changes. He is al so having some headaches with his hematoma (he does have a history of migraine, though these are diff erent). He has been given a prescription for [place], which he has tolerated well as an inpatient. BILLING: I spent more than 30 minutes on the day of discharge coordinating care. /[id number]/MODL
== END 2017-06-09 12:15 | disposition home or self-care (01) | DRG 66 ==
LOC: F2N 11:36 → OBSVTOIN 13:53
PROVIDERS: ADMIT Student in an Organized Health Care Education/Training Program; ATTEND Student in an Organized Health Care Education/Training Program
DX: I62.01 Nontraumatic acute subdural hemorrhage (principal); R56.9 Unspecified convulsions; Z87.820 Personal history of traumatic brain injury; Z85.841 Personal history of malignant neoplasm of brain; I10 Essential (primary) hypertension; B94.1 Sequelae of viral encephalitis; R53.1 Weakness; K21.9 Gastro-esophageal reflux disease without esophagitis; Z66 Do not resuscitate
CPT/HCPCS: 82947-QW; 97161-GP; 97165-GO; G8978-GP-CI; G8979-GP-CI; G8987-GO-CI; G8988-GO-CI; G8989-GO-CI; Q9967

== ENCOUNTER 2017-06-12 21:47 | Emergency (ER) | payer OTHER ==
--- NOTE | 2017-06-12 22:35 | EDPHY ---
H & P Stated Complaint: genral weakness, increase frquency of migraines, aphasia, change in mental Time Seen by Provider: 06/12/17 22:07 HPI/ROS: HPI The patient presents with headache which has been present since 11:00 a.m. This morning. It felt like his usual migraine headache that was on the right side of his head inside of the left. The headache is a retro-orbital pressure associated with blurring of his right eye. His right hand also feels numb. He took a dose of [place] and his symptoms subsided, however the returned at 8:00 p.m.. His reports that he is more weak than usual and that he was having a hard time following commands. She says he wanted to sit down but had difficulty doing this. Paramedics had to assist him to the [facility]. He is brought in by ambulance. He has a complex past neurologic history, most recently he was admitted to the hospital for a subdural hemorrhage which did not require any intervention, he did receive T x-ray. He does have a history of a traumatic brain injury, West Nile virus. REVIEW OF SYSTEMS Constitutional: No fever, no chills. Eyes: No discharge. ENT: No sore throat. Cardiovascular: No chest pain, no palpitations. Respiratory: No cough, no shortness of breath. Gastrointestinal: No abdominal pain, no vomiting. Genitourinary: No hematuria. Musculoskeletal: No back pain. Skin: No rashes. Neurological: Positive for headache. PMHx: As above Soc Hx: Lives at home with PHYSICAL General Appearance: Alert, no distress Eyes: Pupils equal and round no pallor or injection ENT, Mouth: Mucous membranes moist Respiratory: There are no retractions, lungs are clear to auscultation Cardiovascular: Regular rate and rhythm Gastrointestinal: Abdomen is soft and non-tender, no masses, bowel sounds normal Neurological: A&O x3, cranial nerves 2-12 intact, 5/5 strength of upper and lower extremities which is symmetric, no pronator drift, normal finger to nose testing Skin: Warm and dry, no rashes Musculoskeletal: Neck is supple non tender Extremities: symmetrical, full range of motion Psychiatric: Patient is oriented X 3, there is no agitation Source: Patient, Family Exam Limitations: No limitations - Personal History Tetanus Vaccine Date: WITHIN 10 YRS - Medical/Surgical History Hx Asthma: No Hx Chronic Respiratory Disease: No Hx Diabetes: No Hx Cardiac Disease: No Hx Renal Disease: No Hx Cirrhosis: No Hx Alcoholism: No Hx HIV/AIDS: No Hx Splenectomy or Spleen Trauma: No Other PMH: pmh: HTN, HIGH CHOLEST., brain CA, BPH, WEST NILE VIRUS- global weakness; TBI. PSH:CRANIOTOMY, APPY, ZOLTAN, BOWEL RESECTION, GREEN LIGHT LASER TURP, umbillical hernia repair. subdural hematoma 06/06 - Social History Smoking Status: Never smoked Constitutional: Initial Vital Signs Temperature (C) 36.6 C 06/12/17 22:00 Heart Rate 54 L 06/12/17 22:00 Respiratory Rate 20 06/12/17 22:00 Blood Pressure 173/94 H 06/12/17 22:00 O2 Sat (%) 94 06/12/17 22:00 O2 Delivery Mode Room Air Allergies/Adverse Reactions: dutasteride Allergy (Unknown, Unverified 06/08/17 11:04) BREAST MASS Lmamcsz-Szb-Fnj Reductase Inhibitor [Drqujbi-Wxj-Bjf Reductase Inhibitors] Allergy (Unknown, Unverified 06/08/17 11:04) MUSCLE WEAKNESS lisinopril Allergy (Verified 06/08/17 11:04) COUGH mirtazapine [From Remeron] Allergy (Verified 06/08/17 11:04) HALLUCINATIONS Home Medications: Medication Instructions Recorded Melatonin [Melatonin 3 MG (*)] 6 mg PO HS tab 03/01/17 Mirabegron [Myrbetriq] 50 mg PO DAILY #30 tab.er.24h 03/01/17 Cholecalciferol Vit D3 [Vitamin D3 2,000 units PO DAILY 06/08/17 2000 units tab (OTC)] Escitalopram Oxalate [Lexapro 10 10 mg PO HS 06/08/17 MG] Fenofibrate [Tricor 145 mg (*)] 72.5 mg PO HS 06/08/17 Gabapentin [Neurontin 300 MG (*)] 300 mg PO HS 06/08/17 Herbals/Supplements -Info Only 1 ea PO DAILY 06/08/17 Modafinil [Provigil 100 mg (*)] 100 mg PO DAILY 06/08/17 Omeprazole 40 mg PO DAILY 06/08/17 Valsartan/Hydrochlorothiazide 1 each PO DAILY 06/08/17 [Diovan Hct 160-12.5 mg Tab] Hydrocodone/APAP 5/325 [Alderson 1 - 2 tab PO Q4HRS PRN #30 tab 06/09/17 5/325 (*)] Tranexamic Acid 650 mg PO BID #60 tab 06/09/17 levETIRAcetam [Keppra 500 mg (*)] 750 mg PO BID #90 tab 06/09/17 Keppra 06/12/17 Tranexamic Acid 06/12/17 Medical Decision Making - Diagnostics Imaging Results: Imaging Impressions Head CT 06/12/17 22:23 Impression: Stable appearance of small left parietal subdural hematoma with other findings noted as detailed above. Results called and discussed with Dinorah Herrera MD on 06/12/2017 at 23:01 Imaging: Discussed imaging studies w/ funeral service licensee Radiologist, I viewed and interpreted images myself Differential Diagnosis: This is a 62-year-old male, recent diagnosis of subdural hemorrhage, also history of West Nile virus, traumatic brain injury, presenting from home with his with increased migraine headache on the right side associated with general weakness. On exam, he has no neurologic deficit. Differential diagnosis includes worsening subdural, migraine headache, electrolyte disturbance. The emergency department, patient was given IV fluids. His headache subsided significantly. CT scan was checked and shows improving subdural hemorrhage. Other laboratory studies were unremarkable except for elevated BUN to suggest some dehydration. I have discussed this with him. He feels well enough to go home and will be discharged with his . - Data Points Laboratory Results: Laboratory Results 06/12/17 21:50 06/12/17 21:50 06/12/17 06/12/17 21:50 21:50 WBC 7.45 10^3/uL 10^3/uL (3.80-9.50) RBC 5.83 10^6/uL 10^6/uL (4.40-6.38) Hgb 17.5 g/dL g/dL (13.7-17.5) Hct 50.3 % % (40.0-51.0) MCV 86.3 fL fL (81.5-99.8) MCH 30.0 pg pg (27.9-34.1) MCHC 34.8 g/dL g/dL (32.4-36.7) RDW 13.1 % % (11.5-15.2) Plt Count 248 10^3/uL 10^3/uL (150-400) MPV 9.9 fL fL (8.7-11.7) Neut % (Auto) 57.6 % % (39.3-74.2) Lymph % (Auto) 29.8 % % (15.0-45.0) Pitkin % (Auto) 9.7 % % (4.5-13.0) Eos % (Auto) 2.0 % % (0.6-7.6) Baso % (Auto) 0.5 % % (0.3-1.7) Nucleat RBC Rel Count 0.0 % % (0.0-0.2) Absolute Neuts (auto) 4.29 10^3/uL 10^3/uL (1.70-6.50) Absolute Lymphs (auto) 2.22 10^3/uL 10^3/uL (1.00-3.00) Absolute Monos (auto) 0.72 10^3/uL 10^3/uL (0.30-0.80) Absolute Eos (auto) 0.15 10^3/uL 10^3/uL (0.03-0.40) Absolute Basos (auto) 0.04 10^3/uL 10^3/uL (0.02-0.10) Absolute Nucleated RBC 0.00 10^3/uL 10^3/uL (0-0.01) Immature Gran % 0.4 % % (0.0-1.1) Immature Gran # 0.03 10^3/uL 10^3/uL (0.00-0.10) Sodium 141 mEq/L mEq/L (135-145) Potassium 4.7 mEq/L mEq/L (3.5-5.2) Chloride 100 mEq/L mEq/L (97-110) Carbon Dioxide 25 mEq/l mEq/l (22-31) Anion Gap 16 mEq/L mEq/L (8-16) BUN 24 mg/dL H mg/dL (7-23) Creatinine 1.1 mg/dL mg/dL (0.7-1.3) Estimated GFR > 60 Glucose 87 mg/dL mg/dL (70-100) Calcium 10.4 mg/dL mg/dL (8.5-10.4) Total Bilirubin 0.4 mg/dL mg/dL (0.1-1.4) AST 38 IU/L IU/L (17-59) ALT 56 IU/L IU/L (21-72) Alkaline Phosphatase 65 IU/L IU/L (38-126) Total Protein 8.1 g/dL g/dL (6.3-8.2) Albumin 4.7 g/dL g/dL (3.5-5.0) Medications Given: Discontinued Medications Sodium Chloride (Ns) 1,000 mls @ 0 mls/hr IV EDNOW ONE; Wide Open PRN Reason: Protocol Stop: 06/12/17 23:04 Last Admin: 06/12/17 23:14 Dose: 1,000 mls Departure - Departure Disposition: Home, Routine, Self-Care Clinical Impression: Dehydration Migraine headache Qualifiers: Migraine type: unspecified Status migrainosus presence: without status migrainosus Intractability: not intractable Qualified Code(s): G43.909 - Migraine, unspecified, not intractable, without status migrainosus Condition: Good Instructions: Migraine Headache (ED) Additional Instructions: Please return to the emergency department if your worse in any way. Otherwise follow up with your regular doctor as planned. Please make sure to drink plenty of fluids as your lab tests today showed that your dehydrated. Referrals: Lokesh Roa MD [Primary Care Provider] - As per Instructions
[2017-06-12 22:38] LABS: PLATELET COUNT 248 10^3/uL (150-400)
[2017-06-12] MEDS ORDERED: NS 1,000 ML IV ONE (23:03)
[2017-06-12 23:11] VITALS: PULSE 55; RESP 16
[2017-06-13 00:34] VITALS: BP 145/83; TEMP 98.1; O2SAT 94
== END 2017-06-13 00:34 | disposition home or self-care (01) ==
LOC: EDUNIT#
DX: G43.909 Migraine, unspecified, not intractable, without status migrainosus (principal); E86.0 Dehydration; E86.9 Volume depletion, unspecified; I10 Essential (primary) hypertension; Z85.841 Personal history of malignant neoplasm of brain

== ENCOUNTER → 2017-07-05 | Outpatient (CLI) | payer OTHER | LOC: FIMAGING 10:38 | PROVIDERS: ATTEND Neurological Surgery | DX: I62.00 Nontraumatic subdural hemorrhage, unspecified (principal) ==

== ENCOUNTER 2018-05-14 10:33 | Emergency (ER) | payer OTHER ==
--- NOTE | 2018-05-14 11:56 | EDPHY ---
H & P Stated Complaint: Fall yesterday hit L side of head. Time Seen by Provider: 05/14/18 11:55 HPI/ROS: HPI: This is a 63-year-old male who presents with Chief Complaint: Fall yesterday hit L side of head. Location: Left side of head Quality: Injury Duration: Yesterday greater than 24 hr ago Signs and Symptoms: No bleeding, no radiation, no numbness, no weakness, no tingling, no incontinence, no decreased range of motion, no swelling, no pain, no fever Timing: Acute Severity: Moderate Context: Patient reports that he was walking outside stepping off of a curb when he accidentally slipped on ice and fell forward hitting the left side of his head near the [place]on. Denies LOC/head injury/neck pain/dizziness/nausea/ vomiting/amnesia. Patient reports that he felt pain but this has subsided and denies any pain at this time. Ambulatory at the scene with no assistance required. at bedside reports that patient has a history of brain cancer, craniotomy, subdural hematoma last year from "a bump in his head." reports that he is behaving at baseline. Both report cervical degenerative disc disease with neck stiffness and patient reports that his "neck feels the same as it always does."Does not take any blood thinners. Modifying Factors: Regular medications Comment: ROS: A comprehensive 10 system review of systems is otherwise negative aside from elements mentioned in the history of present illness. MEDICAL/SURGICAL/SOCIAL HISTORY: pmh: HTN, HIGH CHOLEST., brain CA, BPH, [place] VIRUS- global weakness; TBI PSH:CRANIOTOMY, APPY, ZOLTAN, BOWEL RESECTION, GREEN LIGHT LASER TURP, umbillical hernia repair subdural hematoma 06/06 Social history: , retired, nonsmoker. CONSTITUTIONAL: Well-developed, well-nourished elderly white male, awake and alert, no obvious distress HEENT: Atraumatic and normocephalic, PERRL, EOMI. no globe entrapment, no raccoon eyes. no [place] signs.Tympanic membranes clear. No tympanic membrane rupture. Nares patent; no septal hematoma. Oropharynx clear, no exudate and moist pink mucosa. No malocclusion. no dental trauma. Airway patent. No lymphadenopathy. NECK: supple, no midline tenderness, flexion 45 degrees, extension 45 degrees, right and left lateral flexion 45 degrees. No meningismus. Cardiovascular: Normal S1/S2, regular rate, regular rhythm, without murmur rub or gallop. PULMONARY/CHEST: Symmetrical and nontender. no crepitus. Clear to auscultation bilaterally. Good air movement. No accessory muscle usage. ABDOMEN: Soft, nondistended, nontender, no ecchymosis, no rebound, no guarding , no peritoneal signs, no masses or organomegaly. No CVAT. PELVIC: no pain with rocking; bilateral hips flexion 125 degrees, extension 30 degrees, with no pain internal rotation and no pain external rotation. BACK: No midline tenderness, no paraspinous spasm, deep tendon reflexes 2/2, no pain with straight leg raise EXTREMITIES: 2/2 pulses, no deformities, no clubbing, no cyanosis or edema. NEUROLOGICAL: no focal neuro deficits. GCS 15. SKIN: Warm and dry, no erythema. no rash. Good capillary refill. Source: Patient, Family () Exam Limitations: No limitations - Personal History Current Tetanus/Diphtheria Vaccine: Unsure Current Tetanus Diphtheria and Acellular Pertussis (TDAP): Unsure Tetanus Vaccine Date: WITHIN 10 YRS - Medical/Surgical History Hx Asthma: No Hx Chronic Respiratory Disease: No Hx Diabetes: No Hx Cardiac Disease: No Hx Renal Disease: No Hx Cirrhosis: No Hx Alcoholism: No Hx HIV/AIDS: No Hx Splenectomy or Spleen Trauma: No Other PMH: pmh: HTN, HIGH CHOLEST., brain CA, BPH, [place] VIRUS- global weakness; TBI. PSH:CRANIOTOMY, APPY, ZOLTAN, BOWEL RESECTION, GREEN LIGHT LASER TURP, umbillical hernia repair. subdural hematoma 06/06 - Social History Smoking Status: Never smoked Constitutional: Initial Vital Signs Temperature (C) 36.8 C 05/14/18 10:57 Heart Rate 60 05/14/18 10:57 Respiratory Rate 16 05/14/18 10:57 Blood Pressure 120/84 H 05/14/18 10:57 O2 Sat (%) 97 05/14/18 10:57 O2 Delivery Mode Room Air Allergies/Adverse Reactions: dutasteride Allergy (Unknown, Unverified 06/08/17 11:04) BREAST MASS Rddndrj-Yja-Lai Reductase Inhibitor [Zyatzzj-Ptn-Vib Reductase Inhibitors] Allergy (Unknown, Unverified 06/08/17 11:04) MUSCLE WEAKNESS lisinopril Allergy (Verified 06/08/17 11:04) COUGH mirtazapine [From Remeron] Allergy (Verified 06/08/17 11:04) HALLUCINATIONS Home Medications: Medication Instructions Recorded Melatonin [Melatonin 3 MG (*)] 6 mg PO HS tab 03/01/17 Mirabegron [Myrbetriq] 50 mg PO DAILY #30 tab.er.24h 03/01/17 Cholecalciferol Vit D3 [Vitamin D3 2,000 units PO DAILY 06/08/17 2000 units tab (OTC)] Escitalopram Oxalate [Lexapro 10 10 mg PO HS 06/08/17 MG] Fenofibrate [Tricor 145 mg (*)] 72.5 mg PO HS 06/08/17 Gabapentin [Neurontin 300 MG (*)] 300 mg PO HS 06/08/17 Herbals/Supplements -Info Only 1 ea PO DAILY 06/08/17 Omeprazole 40 mg PO DAILY 06/08/17 Valsartan/Hydrochlorothiazide 1 each PO DAILY 06/08/17 [Diovan Hct 160-12.5 mg Tab] Hydrocodone/APAP 5/325 [[place] 1 - 2 tab PO Q4HRS PRN #30 tab 06/09/17 5/325 (*)] levETIRAcetam [Keppra 500 mg (*)] 750 mg PO BID #90 tab 06/09/17 Keppra 06/12/17 Armodafinil 05/14/18 Medical Decision Making - Diagnostics Imaging Results: Imaging Impressions Head CT 05/14/18 12:06 Impression: 1. Negative for acute posttraumatic hemorrhage. 2. Remote craniotomy flap and encephalomalacia. 3. See above report for additional findings. Results called and discussed with Abimbola MCLEAN on 05/14/2018 at 13:10. ED Course/Re-evaluation: Vital signs reviewed and stable upon arrival. Fall was mechanical in nature no signs of syncope, CVA, ACS Head CT imaging due to history of significant brain pathology and subdural hematoma with minimal trauma last year No neurological deficits. No LOC. 1315: Tail by radiologist who advised head CT scan shows no acute intracranial process. Does show right parietal craniotomy flap and atrophy. This patient was seen under the supervision of my secondary supervising physician. I evaluated care for this patient independently. Discussed this patient with Dr. Arboleda who did not see the patient. Differential Diagnosis: Head injury including but not limited to concussion, skull fracture, intraparenchymal contusion, subarachnoid, subdural and epidural hematoma. Departure - Departure Disposition: Home, Routine, Self-Care Clinical Impression: History of brain surgery Head injury without concussion or intracranial hemorrhage Qualifiers: Encounter type: initial encounter Qualified Code(s): S09.90XA - Unspecified injury of head, initial encounter Condition: Good Instructions: Head Injury (ED) Additional Instructions: Return to the ER immediately if you have progressive headaches, neurologic deficits, gait abnormality, visual disturbance, slurred speech, or any other symptom that concerns you. Referrals: Errol Gerard MD [Primary Care Provider] - Follow Up Only If Needed
[2018-05-14 13:33] VITALS: BP 118/78
== END 2018-05-14 13:37 | disposition home or self-care (01) ==
DX: S09.90XA Unspecified injury of head, initial encounter (principal); I10 Essential (primary) hypertension; W10.1XXA Fall (on)(from) sidewalk curb, initial encounter; Y92.480 Sidewalk as the place of occurrence of the external cause; Z85.841 Personal history of malignant neoplasm of brain

== ENCOUNTER → 2018-05-19 | Outpatient (CLI) | payer OTHER | LOC: FIMAGING 09:30 | PROVIDERS: ATTEND Internal Medicine Hematology & Oncology | DX: Z08 Encounter for follow-up examination after completed treatment for malignant neoplasm (principal); Z86.011 Personal history of benign neoplasm of the brain; Z86.79 Personal history of other diseases of the circulatory system; Z86.19 Personal history of other infectious and parasitic diseases | CPT/HCPCS: 70553; A9585 ==